=== PATIENT | male | born 1935 | race Asian ===

== ENCOUNTER 2016-08-16 06:40 | Day surgery (SDC) | payer OTHER ==
[2016-08-14 11:16] VITALS: BMI 24.0
[2016-08-16] MEDS ORDERED: HEPARIN NA (PORCINE) 5,000 UNITS/ML 1ML VIAL ONE (08:07)
[2016-08-16] MEDS ORDERED: LIDOCAINE HCL 1%, 10 MG/ML (20ML VIAL) ONE (08:07)
[2016-08-16] MEDS ORDERED: POVIDONE-IODINE OINTMENT 10% - 28.4 GM TUBE ONE (08:08)
--- NOTE | 2016-08-16 08:11 | HP ---
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 He had an upper extremity AVF creation several months ago and this is where he is getting his HD. His last session was yesterday. His family member who is at bedside states that he has been feeling fine without any fevers, cough, cp. History Source: Family Member Limitations to Obtaining History: Language Barrier - Past Medical History Cardiovascular: Yes: CAD, HTN, Hyperlipdemia. No: Deep Vein Thrombosis Pulmonary: No: Asthma, Bronchitis, O2 Dependent Gastrointestinal: No: Diverticulitis, Gastritis Renal/: Yes: Renal Failure, Hemodialysis, Other (makes a small amount of urine daily) Rheumatology: No: Vasculitis Endocrine: Yes: Diabetes Mellitus Additional Past Medical History: history of vertigo - Past Surgical History Additional Past Surgical History: Left upper extremity AVF several months ago Left fore arm fistula several years ago - Smoking History Smoking history: Never smoked Aproximately how many cigarettes per day: 0 - Alcohol/Substance Use Hx Alcohol Use: No <Asya Zuniga - Last Filed: 08/16/16 08:16> Home Medications <Asya Zuniga - Last Filed: 08/16/16 08:16> <Yuri Obrien - Last Filed: 08/16/16 09:31> - Allergies Allergies/Adverse Reactions: Allergies Allergy/AdvReac Type Severity Reaction Status Date / Time No Known Drug Allergies Allergy Verified 08/16/16 07:45 - Home Medications Home Medications: Ambulatory Orders Hydralazine HCl [Apresoline] 50 mg PO TID 10/05/11 Isosorbide Mononitrate [Imdur -] 30 mg PO DAILY 10/05/11 Glipizide [Glipizide ER] 2.5 mg PO BID 10/12/14 Meclizine HCl [Antivert -] 25 mg PO TID PRN #14 tablet 01/25/15 Review of Systems - Review of Systems Constitutional: denies: Chills, Fever Neck: denies: Decreased ROM, Pain on Movement Cardiovascular: denies: Chest Pain, Edema, Palpitations Respiratory: denies: Cough, SOB Gastrointestinal: denies: Abdominal Pain, Constipation Genitourinary: denies: Burning, Dysuria Musculoskeletal: denies: Back Pain, Extremity Pain Integumentary: denies: Blister, Bruising Neurological: reports: Dizziness (occasional dizziness after HD session.). denies: Headache Hematology/Lymphatic: denies: Easily Bruised, Excessive Bleeding <Asya Zuniga - Last Filed: 08/16/16 08:16> Physical Examination Vital Signs: Vital Signs Temperature 98.0 F 08/16/16 07:39 Pulse Rate 91 H 08/16/16 07:39 Respiratory Rate 20 08/16/16 07:39 Blood Pressure 129/69 08/16/16 07:39 O2 Sat by Pulse Oximetry (%) 98 08/16/16 07:41 Constitutional: Yes: No Distress, Calm HENT: Yes: WNL, Atraumatic, Normocephalic Neck: Yes: WNL, Supple, Trachea Midline Cardiovascular: Yes: WNL, Regular Rate and Rhythm Respiratory: Yes: WNL, Regular, CTA Bilaterally Gastrointestinal: Yes: WNL, Normal Bowel Sounds, Soft, Hernia (umbilical hernia , non-tender, non-reducible). No: Tenderness Extremities: No: Amputation, Calf Tenderness, Deformity Edema: No Peripheral Pulses WNL: Yes Peripheral Pulses: Left Radial: 2+, Right Radial: 2+, Left Doralis Pedis: 2+, Right Dorsalis Pedis: 2+, Left Femoral: 2+, Right Femoral: 2+ Wound/Incision: Yes: Clean/Dry, Well Approximated Neurological: Yes: WNL, Alert, Oriented ...Motor Strength: WNL, LUE, LLE, RUE, RLE Psychiatric: Yes: WNL, Alert, Oriented Labs: CBC, BMP 08/16/16 06:49 <Asya Zuniga - Last Filed: 08/16/16 08:16> Vital Signs: Vital Signs Temperature 98.0 F 08/16/16 07:39 Pulse Rate 91 H 08/16/16 07:39 Respiratory Rate 20 08/16/16 07:39 Blood Pressure 129/69 08/16/16 07:39 O2 Sat by Pulse Oximetry (%) 98 08/16/16 07:41 Labs: CBC, BMP 08/16/16 06:49 <Yuri Obrien - Last Filed: 08/16/16 09:31> Imaging - Results EKG: Image Reviewed (NSR-rate 54 with first degree AV block) <Metzen,Asya - Last Filed: 08/16/16 08:16> Assessment/Plan A/P: 81 yo male for 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 Functioning access in upper arm. Patient has pain at aneurysm sites. Plan excision of aneurysm. <Yuri Obrien - Last Filed: 08/16/16 09:31>
[2016-08-16] MEDS ORDERED: LIDOCAINE HCL 1%, 10 MG/ML (20ML VIAL) IJ ONE (08:36)
[2016-08-16] MEDS ORDERED: POVIDONE-IODINE OINTMENT 10% - 28.4 GM TUBE TP ONE (09:16)
[2016-08-16] MEDS ORDERED: ONDANSETRON 4 MG/2 ML VIAL IVPUSH PRN (09:31)
[2016-08-16] MEDS ORDERED: ACETAMINOPHEN 325 MG TABLET (FP) PO PRN ×2 (09:31→09:44)
--- NOTE | 2016-08-16 09:43 | OP ---
Operative Note - Note: Operative Date: 08/16/16 Pre-Operative Diagnosis: Thrombosed venous aneurysm left arm Operation: Excsion of thrombosed venous aneurysm left arm Findings: Old fistula aneurysm left arm. Post-Operative Diagnosis: Same as Pre-op Surgeon: Yuri Obrien Anesthesiologist/PERFORMANCE TEST ARCHITECT: Kaushik Yeager Anesthesia: Fractional Operative Report Dictated: Yes
[2016-08-16] MEDS ORDERED: oxyCODONE HCL 5 MG TABLET PO PRN (09:44)
[2016-08-16] MEDS ORDERED: DEXTROSE 5%-0.45% SALINE 1,000 ML IV SCH (09:45)
[2016-08-16 12:56] VITALS: BP 130/71; PULSE 95; TEMP 97.9
--- NOTE | 2016-08-16 22:14 | OP ---
DATE OF OPERATION: 08/16/2016 SURGEON: Yuri Marquis MD PROCEDURE: Excision of venous aneurysms of left arm. PREOPERATIVE DIAGNOSIS: Thrombosed venous aneurysms, left arm. POSTOPERATIVE DIAGNOSIS: Thrombosed venous aneurysms, left arm. ANESTHESIA: Fractional. ANESTHESIOLOGIST: Kaushik Yeager MD OPERATIVE FINDINGS: The old AV fistula of the left forearm had multiple enlarged venous aneurysms, which are now thrombosed. OPERATIVE PROCEDURE: Following routine patient identification, with site and side verification, intravenous sedation was established. The left arm was prepped with ChloraPrep. Time-out was performed. Then 1% Xylocaine was infiltrated over and around the venous aneurysms of the left forearm. An elliptical incision was made around the area, carried down through subcutaneous tissues using cautery for hemostasis. The thrombosed veins were then from the surrounding skin with sharp dissection and cautery. The inflow and outflow veins were clamped, divided and ligated with 2-0 Vicryl ties. The remaining attachments to the aneurysms was severed and the specimens were removed. The wound was irrigated and closed with interrupted suture of 3-0 Vicryl in subcutaneous tissues and skin dimitri. A sterile dressing consisting of dry gauze, Kerlix, and Jerel wrap was applied and the patient was taken to the recovery room in stable condition. YURI MARQUIS M.D. [id number]
== END 2016-08-16 12:40 | disposition home or self-care (01) ==
LOC: JASU-SURG 06:40
PROVIDERS: ATTEND Surgery
PROC: 05BY0ZZ Excision of Upper Vein, Open Approach (ICD-10-PCS; principal; 2016-08-16 08:00)
DX: T82.868A Thrombosis due to vascular prosthetic devices, implants and grafts, initial encounter (principal); I12.0 Hypertensive chronic kidney disease with stage 5 chronic kidney disease or end stage renal disease; E11.22 Type 2 diabetes mellitus with diabetic chronic kidney disease; N18.6 End stage renal disease
CPT/HCPCS: 36415; 84132; 88304-TC; 94760; J1644

== ENCOUNTER 2016-08-31 02:30 | Inpatient (IN) | payer OTHER ==
--- NOTE | 2016-08-31 02:42 | PDOC ---
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 As per son, at bedside, patient was last dialyzed yesterday with no complications. Son reports patient was in his usual state of health at 8pm last night. When patient awoke at around 12am son noted the patient was nonverbal with left-sided weakness. States that the patient is normally alert, oriented, and active at baseline. As per neighbor, who is also at bedside, states he is a physician and was told by the son to come over and assess the patient. After evaluating the patient he informed the son to contact the EMS immediately. Allergies: NKDA Social History: No alcohol, tobacco, or drug use reported. Past Surgical History: L AV fistula, s/p excision of thrombosed venous aneurysm left arm (53) PCP: Dr. Bennie Corrigan Nephro: Dr. Cortney Link <Cortney Tong - Last Filed: 08/31/16 04:23> - General History Source: Family <Umesh Cruz - Last Filed: 09/04/16 19:39> - General Chief Complaint: Altered Mental Status Stated Complaint: ALTERED MENTAL STATUS Time Seen by Provider: 08/31/16 02:41 Past History <Cortney Tong - Last Filed: 08/31/16 04:23> - Past Medical History Anemia: No Asthma: No Cancer: No Cardiac Disorders: No CVA: No COPD: No Dementia: No Diabetes: Yes Dialysis: Yes (mon, wed, fri) GI Disorders: No Disorders: No HTN: Yes Hypercholesterolemia: Yes Liver Disease: No Suicide Attempt (Hx): No Seizures: No Thyroid Disease: No - Surgical History Abdominal Surgery: No Appendectomy: No Cardiac Surgery: No Cholecystectomy: No Lung Surgery: No Neurologic Surgery: No Orthopedic Surgery: No - Immunization History Immunization Up to Date: No - Psycho/Social/Smoking Cessation Hx Anxiety: No Suicidal Ideation: No Smoking Status: No Smoking History: Never smoked Number of Cigarettes Smoked Daily: 0 Hx Alcohol Use: No Drug/Substance Use Hx: No Substance Use Type: None Hx Substance Use Treatment: No <MishaalbertUmesh - Last Filed: 09/04/16 19:39> - Past Medical History Allergies/Adverse Reactions: Allergies Allergy/AdvReac Type Severity Reaction Status Date / Time No Known Drug Allergies Allergy Verified 08/31/16 02:45 Home Medications: Ambulatory Orders Hydralazine HCl [Apresoline] 50 mg PO TID 10/05/11 Isosorbide Mononitrate [Imdur -] 30 mg PO DAILY 10/05/11 Glipizide [Glipizide ER] 2.5 mg PO BID 10/12/14 Meclizine HCl [Antivert -] 25 mg PO TID PRN #14 tablet 01/25/15 Labetalol HCl [Normodyne -] 0 mg PO ASDIR 08/31/16 Review of Systems - Review of Systems Able to Perform ROS?: No Comments:: 08/31/16 03:03 Unable to obtain secondary to patients clinical condition <RanCortney - Last Filed: 08/31/16 04:23> *Physical Exam - Vital Signs Last Vital Signs Temp Pulse Resp BP Pulse Ox 73 18 127/80 98 08/31/16 02:44 08/31/16 02:44 08/31/16 02:44 08/31/16 02:44 - Physical Exam Comments: 08/31/16 03:03 GENERAL: Well developed, well nourished. Awake and alert. Nonverbal. No acute distress. HEENT: Normocephalic, atraumatic. PERRLA, EOMI. No conjunctival pallor. Sclera are non- icteric. Moist mucous membranes. Oropharynx is clear. NECK: Supple. Full ROM. No JVD. Carotid pulses 2+ and symmetric, without bruits. No thyromegaly. No lymphadenopathy. CARDIOVASCULAR: Regular rate and rhythm. No murmurs, rubs, or gallops. Distal pulses are 2+ and symmetric. PULMONARY: No evidence of respiratory distress. Lungs clear to auscultation bilaterally. No wheezing, rales or rhonchi. ABDOMINAL: Soft. Non-distended. No rebound or guarding. No organomegaly. Normoactive bowel sounds. MUSCULOSKELETAL Normal range of motion at all joints. No bony deformities. EXTREMITIES: No cyanosis. No clubbing. L AV fistula +bruits and +thrills. R upper extremity picc line. No edema. SKIN: Warm and dry. Normal capillary refill. No rashes. No jaundice. NEUROLOGICAL: Alert and awake. Nonverbal. Not following simple commands as son was translating. 0/5 motor strength of both left upper extremity and right upper extremity. Neglect of entire left side. No facial droop. <Cortney Tong - Last Filed: 08/31/16 04:23> NIH Stroke Scale - Last Known Well Date/Time & Onset Date Last Known Well: 08/30/16 Time Last Known Well: 20:00 - Initial Evaluation Level of consciousness: Alert Ask patient the month and their age: Both incorrect (as translated by son) Ask patient to open & close eyes; make fist and let go: Both incorrect (as translated by son) Best gaze (horizontal eye movement): Normal Visual field testing: No visual field loss Facial paresis (Show teeth/raise eyebrows/close eyes tight): Normal symmetrical movement Motor Function: Left Arm: No movement Motor Function: Right Arm: Normal (extends arm 90 (or 45) degrees for 10 seconds without drift Motor Function: Left Leg: No movement Motor Function: Right Leg: Normal (extends leg 30 degrees for 5 seconds without drift) Limb Ataxia: Present in one limb Sensory(Use pinprick test arms,legs,trunk,face/side to side): Severe to total sensory loss (left upper and lower extremtiy) Best language (Describe picture, name items, read sentences): Severe aphasia Dysarthria (read several words): Near unintelligible or unable to speak Extinction and Inattention: Profound zane-inattention or extinction to more than one modality (left upper and lower extremity) - Total Score NIH Stroke Scale Score: 21 <Umesh Cruz - Last Filed: 09/04/16 19:39> tPA Exclusion Checklist 0-3hr - Time Elapsed Date last known well: 08/30/16 Time last known well: 20:00 Elaspsed time: 4 Day(s) and 23 Hour(s) and 39 Minutes - Exclusion Criteria 0-3hr SBP greater than 185 or DBP greater than 110mmHg despite tx: No Recent IC/spinal surgery,head trauma or stroke w/in last 3mo: No Hx of previous IC hemorrhage, IC neoplasm, AVM or aneurysm: No Active internal bleeding: No Blding diathesis(low plt ct, inc PTT,INR>1.7 or use of NOAC): No Symptoms suggest subarachnoid hemorrhage: No CT demonstrates multilobar infarct(>1/3 cerebral hemiphere): No Arterial puncture at noncompressible site in previous 7 days: No Blood glucose concentration less than 50mg/dL (2.7mmol/L): No - Relative Exclusion Criteria 0-3h Life expectancy <1yr/severe co-morbid illness/HSE COORDINATOR on admit: No : No Patient/family refused: No Rapid improvement: No Stroke severity too mild: No Recent acute DC (w/in previous 3 months): No Seizure at onset with postictal residual neuro impairments: No Major surgery or serious trauma w/in previous 14 days: No Recent GI or hemorrhage (w/in previous 21 days): No - Ineligibility reason(s) Reasons No tPA given: Outside of window - delayed arrival <Umesh Cruz - Last Filed: 09/04/16 19:39> Heart Score/ECG Review - ECG Impressions Comment:: 08/31/16 03:26 Atrial fibrillation @68bpm L axis deviation Incomplete RBBB Anteroseptal infarct, age undetermined Abnormal ECG <Cortney Tong - Last Filed: 08/31/16 04:23> Critical Care Time/MDM Note - Medical Decision Making Note: 08/31/16 03:[address] Guy (via [phone]) at 3:35 and patient's case was discussed 08/31/16 04:[address] Bennie Corrigan (via [phone]) at 4:23 and patient's case was discussed. 08/31/16 03:04 Documentation prepared by Cortney Tong, acting as medical billing and coding specialist for Umesh Cruz MD/DO. <Cortney Tong - Last Filed: 08/31/16 04:23> - Medical Decision Making Note: 08/31/16 03:53 Dr. Cruz: The scribe's documentation has been prepared under my direction and personally reviewed by me in its entirery. I confirm that the note above accurately reflects all work, treatment, procedures, and medical decision making performed by me. Pt with CVA. Last known well at 8pm last night. Pt with complete Left upper and lower hemiplegia and neglect of left side. Spoke to Neurology. Pt is not a candidate due to length of time out of [place] 09/04/16 19:39 <Umesh Cruz - Last Filed: 09/04/16 19:39> Discharge Disposition <KimberlyorlyCortney - Last Filed: 08/31/16 04:23> - Discharge Dispostion Admit: Yes <Umesh Cruz - Last Filed: 09/04/16 19:39> - Diagnosis ESRD (end stage renal disease) on dialysis CVA (cerebral vascular accident) Qualifiers: CVA mechanism: embolism Precerebral and cerebral artery: middle cerebral artery Laterality of affected vessel: right Qualified Code(s): I63.411 - Cerebral infarction due to embolism of right middle cerebral artery - Discharge Dispostion Condition at time of disposition: Stable ED Treatment Course - LABORATORY CBC & Chemistry Diagram: 08/31/16 02:40 08/31/16 02:40 - ADDITIONAL ORDERS Additional order review: Laboratory Results 08/31/16 08/31/16 02:40 02:40 INR 1.34 H Sodium 138 Potassium 4.9 Chloride 97 L Carbon Dioxide 27 Anion Gap 14 BUN 41 H Creatinine 5.7 H Creat Clearance w eGFR 9.67 Random Glucose 272 H D Calcium 8.7 Total Bilirubin 0.4 D AST 21 D ALT 37 D Total Protein 6.7 Albumin 3.0 L 08/31/16 02:40 RBC 3.47 L MCV 93.6 MCHC 32.8 RDW 14.8 MPV 9.3 Neutrophils % 66.1 Lymphocytes % 13.7 Monocytes % 12.8 H Eosinophils % 6.2 H Basophils % 1.2 - RADIOLOGY Radiograph Interpretation: 08/31/16 03:14 EXAM: CT HEAD WITHOUT CONTRAST Reviewed by Imaging television installer helper: Subtle loss of galarza-white differentiaion right frontal lobe on images 16 and 17, question acute ischemic infarct versus artifact. Advise further evaluation with MRI. No definite acute hemorrhage or mass. Exam limited by motion artifact in high frontal and parietal lobes. Age- related involutional changes. Slightly more prominent chronic small vessel ischemic changes compared to 02/19/13. Minimal mucoperiosteal thickening paranasal sinuses. Small left mastoid effusion, improved since prior exam. <Cortney Tong - Last Filed: 08/31/16 04:23> - LABORATORY CBC & Chemistry Diagram: 09/04/16 07:00 09/04/16 07:00 <Umesh Cruz - Last Filed: 09/04/16 19:39>
[2016-08-31 02:46] VITALS: BMI 29.0
[2016-08-31 02:48] LABS: BASOPHIL 1.2 % (0-2.0); EOSINOPHIL 6.2 % (0-4.5); MCH 30.7 pg (25.7-33.7); MCHC 32.8 g/dl (32.0-35.9); MEAN CELL VOLUME 93.6 fl (80-96); MEAN PLT VOLUME 9.3 fl (7.5-11.1); NEUTROPHILS 66.1 % (42.8-82.8); PLATELET COUNT 190 K/MM3 (134-434); RDW 14.8 % (11.9-15.9)
[2016-08-31 03:02] LABS: INR 1.34 (0.82-1.09); PROTHROMBIN TIME (PATIENT) 14.8 SEC (9.98-11.88)
[2016-08-31 03:11] LABS: BILIRUBIN,TOTAL 0.4 mg/dL (0.2-1.0); CALCIUM 8.7 mg/dL (8.5-10.1); COCKROFT - GAULT 12.13; CREATININE 5.7 mg/dL (0.7-1.3); TOT PROT 6.7 g/dl (6.4-8.2)
[2016-08-31 03:14] LABS: TROPONIN I 0.08 ng/ml (0.00-0.05)
[2016-08-31] MEDS ORDERED: ASPIRIN 81 MG CHEWABLE TABLETS PO ONE (06:12)
[2016-08-31] MEDS ORDERED: ASPIRIN 300 MG SUPP.RECT RC ONE (06:27)
[2016-08-31] MEDS ORDERED: ASPIRIN 300 MG SUPP.RECT PR ONE (06:43)
--- NOTE | 2016-08-31 11:32 | EKG ---
Test Reason : Blood Pressure : / mmHG Vent. Rate : 068 BPM Atrial Rate : 054 BPM P-R Int : 000 ms QRS Dur : 114 ms QT Int : 432 ms P-R-T Axes : 000 -39 058 degrees QTc Int : 459 ms ATRIAL FIBRILLATION LEFT AXIS DEVIATION INCOMPLETE RIGHT BUNDLE BRANCH BLOCK ANTEROSEPTAL INFARCT (CITED ON OR BEFORE 31-AUG-2016) ABNORMAL ECG WHEN COMPARED WITH ECG OF 29-JUL-2016 09:27, ATRIAL FIBRILLATION HAS REPLACED SINUS RHYTHM Confirmed by JOHN CULLEN MD ([id number]) on 08/31/2016 11:32:01 AM Referred By: Confirmed By:JOHN CULLEN MD
--- NOTE | 2016-08-31 13:03 | CONSULT ---
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 As per son, at bedside, patient was last dialyzed yesterday with no complications. Son reports patient was in his usual state of health at 8pm last night. When patient awoke at around 12am son noted the patient was nonverbal with left-sided weakness. States that the patient is normally alert, oriented, and active at baseline. As per neighbor, who is also at bedside, states he is a physician and was told by the son to come over and assess the patient. After evaluating the patient he informed the son to contact the EMS immediately. " Pt seen bedside with family present. Pt reclining, coughing on secretions, congested. Nursing reported pt had pushed bed controls while she was in the room and he was told to stay upright. Elevated bed and suction set up. Within a few minutes during me evaluation, airway seemed less gurgly. Keeps eyes closed but opens upon command. Eyes deviating to right. Selected Entries 08/31/16 08/31/16 06:43 13:08 Temperature 98.4 F 98.1 F Laboratory Tests 08/31/16 02:40 WBC 7.0 History Source: Family Member, Medical Record Limitations to Obtaining History: Clinical Condition, Other (confused, dysarthia ) - Past Medical History Cardiovascular: Yes: CAD, HTN, Hyperlipdemia. No: Deep Vein Thrombosis Renal/: Yes: Renal Failure, Hemodialysis, Other (makes a small amount of urine daily) Endocrine: Yes: Diabetes Mellitus - Smoking History Smoking history: Never smoked Aproximately how many cigarettes per day: 0 - Alcohol/Substance Use Hx Alcohol Use: No History - Admission Reason For Visit: CVA ESRD ON DIALYSIS (STROKE) - Diagnostics X-ray: Report Reviewed CT Scan: Report Reviewed - General Mental Status: Able to Follow Commands, Confused Attention: Distractible, Moderate Impairment Ability to Follow Directions: Fair - Hearing Hearing: Impaired (awaiting hearing aids) Speech Evaluation - Communication Primary Language: UNKNOWN (malayalam) Communication: Yes: Dysarthria Oral Expression Ability: Yes: Moderate Impairment, Severe Impairment - Speech Production Dysarthria: Yes: Flaccid Able to Make Needs Known: Yes: Moderately Impaired, Severely Impaired Intelligibility: Yes: Moderately Impaired, Severely Impaired - Speech Characteristics Voice Loudness: Normal Voice Pitch: Yes: Normal Voice Phonatory-based Quality: Yes: Hoarse, Vocal Wetness Speech Pattern: Impaired Speech Clarity: < 50% Articulation: Yes: Imprecise Rate of Speech: Too Fast - Language/Auditory Comprehension Follows: Yes: 1 Stage Simple Commands - Language/Verbal Expression Able to Communicate Wants and Needs: Yes: Severely Impaired Functional Communication Status: Yes: Severely Impaired - Swallow Evaluation/Bedside Assessment Current Nutritional Intake: NPO Oral Secretions: Yes: Drooling (left side), Pooling (audible upper airway secretions) Facial Symmetry at Rest: Facial Droop Left Lingual Movement: Symmetric (weak) Laryngeal Elevation: Impaired Laryngeal Movement: Unable to Palpate Coughing/Throat Clear: Yes (secretions) Change in Voice: Yes (vocal wetness) Recommendations - Speech Evaluation, Impression/Plan Impression: Dysarthria,Dysphagia,Confused, Disoriented, left neglect,. eyes deviating to right with left hemiplegia, now with slight movement,. Weak unprotective cough,. high risk of aspiration at this time. No swallow reflex elicited, with vocal wetness and slight throat clearing. - Dysphagia Impressions/Plan Swallowing Skills: Impaired Dysphagia Impressions: Severe Impairment, Ongoing Evaluation, Suspect Aspiration *Silent aspiration: cannot be R/O at bedside Dysphagia Treatment Plan: Other (Family educated on Dysarthria,Dysphagia, confusion and provided rec) Recommendations: Neuro Consult, Other (Elevate HOB at all times, mouth care, suction PRN) - Recommendations Diet Consistency: NPO, Other (NPO including medication To follow for improvement vs indication for TF.) Liquids: NPO
--- NOTE | 2016-08-31 13:23 | CON.CARD ---
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 As per son, patient was last dialyzed yesterday without sequelae. Son reports patient was in his usual state of health at 8pm last night. When patient awoke at around 12am son noted the patient was nonverbal with left-sided weakness. States that the patient is normally alert, oriented, and active at baseline. EKG shows newly diagnosed afib , not candidate for thrombolysis as patient was outside therapeutic window. Allergies: NKDA Social History: No alcohol, tobacco, or drug use reported. 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 Bennie Corrigan Nephro: Dr. Cortney Link - History Source History Provided By: Family Member Limitations to Obtaining History: Clinical Condition - Past Medical History Cardio/Vascular: Yes: CAD, CHF, HTN, Hyperlipdemia. No: Deep Vein Thrombosis Renal/: Yes: Renal Failure, Hemodialysis, Other (makes a small amount of urine daily) Endocrine: Yes: Diabetes Mellitus - Alcohol/Substance Use Hx Alcohol Use: No - Smoking History Smoking history: Never smoked Aproximately how many cigarettes per day: 0 Home Medications - Allergies Allergies/Adverse Reactions: Allergies Allergy/AdvReac Type Severity Reaction Status Date / Time No Known Drug Allergies Allergy Verified 08/31/16 02:45 - Home Medications Home Medications: Ambulatory Orders Hydralazine HCl [Apresoline] 50 mg PO TID 10/05/11 Isosorbide Mononitrate [Imdur -] 30 mg PO DAILY 10/05/11 Glipizide [Glipizide ER] 2.5 mg PO BID 10/12/14 Meclizine HCl [Antivert -] 25 mg PO TID PRN #14 tablet 01/25/15 Labetalol HCl [Normodyne -] 0 mg PO ASDIR 08/31/16 Review of Systems Unable to obtain ROS, reason: Nonverbal Vital Signs: Vital Signs Temperature 98.1 F 08/31/16 13:08 Pulse Rate 85 08/31/16 13:08 Respiratory Rate 20 08/31/16 13:08 Blood Pressure 151/88 08/31/16 13:08 O2 Sat by Pulse Oximetry (%) 97 08/31/16 10:24 Constitutional: Yes: No Distress, Calm, Thin Neck: Yes: Supple Respiratory: Yes: Regular, Diminished, On Nasal O2 Gastrointestinal: Yes: Normal Bowel Sounds, Soft Cardiovascular: Yes: Pulse Irregular JVD: No Carotid Bruit: No Heart Sounds: Yes: S1, S2 Murmur: Yes: Systolic Murmur, Grade 2 Edema: No Neurological: Yes: Confusion, Dysarthria, Weakness ...Motor Strength: LUE, LLE - Other Data Labs, Other Data: INR, PTT INR 1.34 (0.82-1.09) H 08/31/16 02:40 Afib @ 68 Ejection Fraction %: LVEF > or = 40 % Imaging - Results Chest X-ray: Report Reviewed (NAD) Cat Scan: Report Reviewed (HCT: Negative for bleed, stroke) Problem List - Problems (1) CVA (cerebral vascular accident) Code(s): I63.9 - CEREBRAL INFARCTION, UNSPECIFIED Qualifiers: CVA mechanism: embolism Precerebral and cerebral artery: middle cerebral artery Laterality of affected vessel: right Qualified Code(s ): I63.411 - Cerebral infarction due to embolism of right middle cerebral artery (2) ESRD (end stage renal disease) on dialysis Code(s): N18.6 - END STAGE RENAL DISEASE Z99.2 - DEPENDENCE ON RENAL DIALYSIS (3) Systolic dysfunction without heart failure Code(s): I51.9 - HEART DISEASE, UNSPECIFIED (4) Hyperlipidemia associated with type 2 diabetes mellitus Code(s): E11.69 - TYPE 2 DIABETES MELLITUS WITH OTHER SPECIFIED COMPLICATION E78.5 - HYPERLIPIDEMIA, UNSPECIFIED (5) Hypertensive cardiomyopathy Code(s): I11.9 - HYPERTENSIVE HEART DISEASE WITHOUT HEART FAILURE I43 - CARDIOMYOPATHY IN DISEASES CLASSIFIED ELSEWHERE Qualifiers: Heart failure presence: without heart failure Qualified Code(s): I11.9 - Hypertensive heart disease without heart failure; I43 - Cardiomyopathy in diseases classified elsewhere (6) Atrial fibrillation Code(s): I48.91 - UNSPECIFIED ATRIAL FIBRILLATION Qualifiers: Atrial fibrillation type: persistent Qualified Code(s): I48.1 - Persistent atrial fibrillation Assessment/Plan 1. Acute right MCA stroke in context of 2. Newly diagnosed atrial fibrillation 3. LV systolic dysfunction euvolemic 4. HTN/HCVD 5. Hyperlipidemia 6. Type 2 DM 7. ESRD->HD P:1. F/u echo to assess ventricular and valve fxn, check TSH, lipid panel, Ha1c 2. Will require coumadin per INR, not ideal NOAC candidate due to ESRD, will d/ w neurology regarding timing to minimize risk of hemorrhagic conversion 3. F/u brain MRI, carotid dopplers, PT, S&S eval 4. Start carvedilol and losartan as hemodynamics tolerate 5. HD per renal 6. Thank you for consultative opportunity
--- NOTE | 2016-08-31 14:34 | HP ---
CHIEF COMPLAINT: family reported patient became non verbal with left side weakness at apx 12a.m PCP: Dr. 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 (5/) Social History: Smoking: denies Alcohol: denies Drugs: denies Family History: Allergies: denies No Known Drug Allergies Allergy (Verified 08/31/16 02:45) HOME MEDICATIONS: Home Medications Medication Instructions Recorded Hydralazine HCl [Apresoline] 50 mg PO TID 10/05/11 Isosorbide Mononitrate [Imdur -] 30 mg PO DAILY 10/05/11 Glipizide [Glipizide ER] 2.5 mg PO BID 10/12/14 Meclizine HCl [Antivert -] 25 mg PO TID PRN #14 tablet 01/25/15 Labetalol HCl [Normodyne -] 0 mg PO ASDIR 08/31/16 REVIEW OF SYSTEMS CONSTITUTIONAL: Absent: fever, chills, diaphoresis, generalized weakness, malaise, loss of appetite, weight change HEENT: Absent: rhinorrhea, nasal congestion, throat pain, throat swelling, difficulty swallowing, mouth swelling, ear pain, eye pain, visual changes CARDIOVASCULAR: Absent: chest pain, syncope, palpitations, +atrial fib, lightheadedness, peripheral edema RESPIRATORY: Absent: cough, dyspnea with exertion, orthopnea, wheezing, stridor, hemoptysis GASTROINTESTINAL: Absent: abdominal pain, abdominal distension, nausea, vomiting, diarrhea, constipation, melena, hematochezia GENITOURINARY: Absent: dysuria, frequency, urgency, hesitancy, hematuria, flank pain, genital pain MUSCULOSKELETAL: Absent: myalgia, arthralgia, joint swelling, back pain, neck pain SKIN: Absent: rash, itching, pallor HEMATOLOGIC/IMMUNOLOGIC: Absent: easy bleeding, easy bruising, lymphadenopathy, frequent infections ENDOCRINE: Absent: unexplained weight gain, unexplained weight loss, heat intolerance, cold intolerance NEUROLOGIC: Absent: headache, focal weakness or paresthesias, dizziness, unsteady gait, seizure, mental status changes, bladder or bowel incontinence PSYCHIATRIC: Absent: anxiety, depression, suicidal or homicidal ideation, hallucinations. PHYSICAL EXAMINATION Vital Signs - 24 hr 08/31/16 08/31/16 08/31/16 03:58 06:43 07:53 Temperature 98.4 F Pulse Rate Pulse Rate [ 75 79 Apical] Respiratory 17 18 Rate Blood Pressure Blood Pressure 114/82 141/68 [Right Arm] O2 Sat by Pulse 100 98 Oximetry (%) 08/31/16 08/31/16 10:24 13:08 Temperature 98.1 F Pulse Rate 85 Pulse Rate [ 81 Apical] Respiratory 19 20 Rate Blood Pressure 151/88 Blood Pressure 123/67 [Right Arm] O2 Sat by Pulse 97 Oximetry (%) GENERAL: lethargic, follows simple commands, left facial droop HEAD: +left facial droop, left neglect, can follow simple commands EYES: Pupils equal, No lid lag. EARS, NOSE, THROAT: Ears normal, nares patent, oropharynx clear without exudates. Moist mucous membranes. NECK: Normal range of motion, supple without lymphadenopathy, JVD, or masses. LUNGS: Breath sounds equal, diminished bilaterally. HEART: atrial fibrillation on cardiac care nurse ABDOMEN: Soft, nontender, not distended, normoactive bowel sounds, no guarding, no rebound, no masses. No hepatomegaly or splenomegaly. MUSCULOSKELETAL: Normal range of motion at all joints. No bony deformities or tenderness. No CVA tenderness. UPPER EXTREMITIES: + bruit/thrill of left upper arm LOWER EXTREMITIES: 2+ pulses, warm, well-perfused. No calf tenderness. No peripheral edema. NEUROLOGICAL: lethargic, non verbal secondary to lethargy SKIN: + bruit and thrill of left upper arm, left lower forearm with +sutures Laboratory Results - last 24 hr 08/31/16 10:30 POC Glucometer [id number] ASSESSMENT/PLAN: Patient is a 81 year old male with a significant past medical history of ESRD with dialysis scheduled on MWF. 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 His other medical history includes diabetes, hypertension, hyperlipidemia. He presented to the ED from home for AMS and left-sided weakness. I spoke to son at the bedside and states that his father is normally able to ambulate and care for himself . His last dialysis was yesterday without incident. Family reports that patient was in his usual state of health when he noted that his father became non verbal with left sided weakness. Family contacted EMS and patient was brought into the ER and a code Will was called. A swallow evaluation was performed at the bedside but patient was too lethargic to participate and required repeated verbal cues to swallow apple sauce. During swallow evaluation, patients eyes deviated to the right with left hemiplegia. He coughed when asked but cough was noted to be very weak. He is too high risk for aspiration at this time. Will keep him NPO. Patient is a dialysis patients, makes very little urine. Therefore will not start patient on IV fluids. The plan is to keep him NPO and try the swallow function test tomorrow. Imaging: Head CT 08/31/2016 - No evidence of acute ICH, edema or midline shift. EKG of 07/29/2016, atrial fib has replaced SR Will start on Lopressor IV while NPO for rate control Neurology: CVA/TIA - left sided facial droop. Assessment/Plan: Given 325 of ASA in ED Not candidate for thrombolysis as patient was outside therapeutic window. On cardiac care nurse: atrial fib 60s Will defer to Neuro for anticoagulants Will start on a Statin once able to swallow Carotid doppler ordered Brain MRI ordered Neurology consulted Neuro checks q 4 Will check lipid panel Will keep NPO as he failed swallow evaluation Metabolic Encephalopathy - acute Assessment/Plan: Likely secondary to acute CVA Monitor mental status Neuro consulted Head CT 08/31/2016 - No evidence of acute ICH, edema or midline shift. Brain MRI ordered Endocrine: Diabetes Mellitus Assessment/Plan: On Glipizide @ home, will put on Novolog sliding scale Monitor capillary glucose Will order HgbA1c Renal: End Stage Renal Disease Assessment/Plan: Dialysis MWF, renal following Monitor Bun/Creat. Dialysis patient, will not start on IVF Cardiology Atrial Fibrillation -new diagnosis/new onset Afib Assessment/Plan: EKG 08/31/2016 show atrial fib @ 68, when compared to EKG of 07/29/2016, atrial fib has replaced SR Will start on Lopressor IV while NPO for rate control Will await Neurology input on shelter anticoags F.E.N. Fluids: no IVF, on dialysis, anuria Electrolytes: monitor BMP Nutrition: NPO: failed bedside swallow evaluation, repeat test tomorrow Prophylaxis: DVT: Heparin BID GI: Protonix PO when not NPO Disposition: Requires inpatient hospitalization for his acute/emergent condition. Full Code. Visit type - Emergency Visit Emergency Visit: Yes ED Registration Date: 08/31/16 Care time: The patient presented to the Emergency Department on the above date and was hospitalized for further evaluation of their emergent condition. - New Patient This patient is new to me today: Yes Date on this admission: 08/31/16 - Critical Care Critical Care patient: No
--- NOTE | 2016-08-31 15:40 | CONSULT ---
Consult - text type - Consultation Consultation Note: Renal Consult for ESRD on HD This is a 81 year old Gentleman with PMhx of ESRD on HD (MWF), Hypertension, CHF , DM2 who presented with AMS, unilateral weakness and found to have an acute CVA. Pt was brought in by has family at 2am and was last seen at his baseline earlier that evening. s/p uneventful dialysis treatment on Sunday. In the ED pt is non-verbal. BP is stable. No complaints of CP, sob, abd pain, N/V/D. Noted to be in new onset afib. PMhx: As above Allergies: NKDA Family Hx: NC Social Hx: No T/A/D ROS: As per HPI Home Meds: Home Medications Medication Instructions Recorded Hydralazine HCl [Apresoline] 50 mg PO TID 10/05/11 Isosorbide Mononitrate [Imdur -] 30 mg PO DAILY 10/05/11 Glipizide [Glipizide ER] 2.5 mg PO BID 10/12/14 Meclizine HCl [Antivert -] 25 mg PO TID PRN #14 tablet 01/25/15 Labetalol HCl [Normodyne -] 0 mg PO ASDIR 08/31/16 Vital Signs Temperature 98.1 F 08/31/16 15:17 Pulse Rate 85 08/31/16 15:17 Respiratory Rate 16 08/31/16 15:17 Blood Pressure 151/88 08/31/16 15:17 O2 Sat by Pulse Oximetry (%) 97 08/31/16 15:27 Gen: NAD, lethargic HEENT: NC/AT, MMM, No JVD CVS: RRR, No M/R Lungs: CTA, no rales Abd: Soft, Obese, NT/ND Ext: no edema, clubbing or cyanosis Neuro pt not following commands, lethargic CBC, BMP 08/31/16 02:40 08/31/16 02:40 Current Medications Insulin Aspart (Novolog Vial Sliding Scale -) 1 vial SQ ACHS TULIO PRN Reason: Protocol A/P 81 year old Gentleman with PMhx of ESRD on HD (MWF), Hypertension, CHF, DM2 who presented with AMS, unilateral weakness and found to have an acute CVA. #Acute CVA in setting of new onset Afib Neurology follow up MRI, Carotid Doppler ? TONY A/c as per cardiology #New onset Afib Rate control and afib as per cardiology ? TONY #ESRD on HD no acute indication for dialysis today will arrange for maintenance dialysis tomorrow dose all meds for intermittent HD #CKD related Anemia will continue KARIE as needed to maintain hgb > 8 #DM continue insulin as per primary #Hypertension allow permissive hypertension as per Neurology Thank you Will follow Pola Darnell DO
[2016-08-31] MEDS: INSULIN SLIDING SCALE (NOVOLOG) 1 VIAL SQ SCH ×2 (16:07→23:43)
[2016-08-31] MEDS ORDERED: glipiZIDE-XL 2.5 MG TAB.ER.24 PO SCH (16:30)
[2016-08-31] MEDS: METOPROLOL TARTRATE 5 MG/5 ML VIAL IVPB SCH ×2 (17:41→23:42)
[2016-08-31] MEDS: HEPARIN NA (PORCINE) 5,000 UNITS/ML 1ML VIAL SQ SCH (23:42)
[2016-09-01] MEDS: METOPROLOL TARTRATE 5 MG/5 ML VIAL IVPB SCH ×6 (05:04→22:05)
[2016-09-01] MEDS: INSULIN SLIDING SCALE (NOVOLOG) 1 VIAL SQ SCH ×4 (06:27→22:00)
[2016-09-01 07:04] LABS: BASOPHIL 0.5 % (0-2.0); EOSINOPHIL 0.8 % (0-4.5); MCH 31.4 pg (25.7-33.7); MCHC 33.5 g/dl (32.0-35.9); MEAN CELL VOLUME 93.7 fl (80-96); MEAN PLT VOLUME 9.5 fl (7.5-11.1); NEUTROPHILS 80.6 % (42.8-82.8); PLATELET COUNT 214 K/MM3 (134-434); RDW 14.9 % (11.9-15.9); WHITE BLOOD COUNT 10.8 K/mm3 (4.0-10.0)
[2016-09-01 07:46] LABS: ALBUMIN 3.4 g/dl (3.4-5.0); CALCIUM 9.2 mg/dL (8.5-10.1)
[2016-09-01 08:00] LABS: BILIRUBIN,TOTAL 0.7 mg/dL (0.2-1.0); COCKROFT - GAULT 7.35; MAGNESIUM 2.3 mg/dL (1.8-2.4); THYROID STIMULATING HORMONE 1.34 uIU/ml (0.358-3.74); TOT PROT 7.2 g/dl (6.4-8.2)
--- NOTE | 2016-09-01 09:07 | PN ---
Physical Exam: SUBJECTIVE: Patient seen and examined. Restless, getting dialysis. OBJECTIVE: Patient currently receiving dialysis @ the bedside Agitated overnight Spoke with neurologist, pt should be on ASA OK until able to tolerate PO Will repeat Head CT to reevaluate stroke If worsening, will consult neurosurgery Spoke with Dr. Guy 12:45pm regarding Head CT; and as per neurologist, pt should be transferred to ICU with neurosurgery consult. Consult placed with Dr. Van Duenas, also called in consult [phone] - awaiting call back. Consult placed for Dr. Ortiz for pending ICU transfer. Spoke with Dr. Doty who approved pt to be transferred to ICU. Vital Signs Period Temp Pulse Resp BP Sys/Avila Pulse Ox Last 24 Hr 98 F-98.8 F 81-105 16-20 123-177/61-88 97-99 GENERAL: lethargic, follows simple commands, left facial droop HEAD: +left facial droop, left neglect, lethargic - not opening his eyes when asked EYES: left neglect EARS, NOSE, THROAT: Ears normal, nares patent, oropharynx clear without exudates. Moist mucous membranes. NECK: Normal range of motion, supple without lymphadenopathy, JVD, or masses. LUNGS: Breath sounds equal, diminished bilaterally. HEART: atrial fibrillation on bibliographic services specialist ABDOMEN: Soft, nontender, not distended, normoactive bowel sounds, no guarding, no rebound, no masses. No hepatomegaly or splenomegaly. MUSCULOSKELETAL: Normal range of motion at all joints. No bony deformities or tenderness. No CVA tenderness. UPPER EXTREMITIES: + bruit/thrill of left upper arm LOWER EXTREMITIES: 2+ pulses, warm, well-perfused. No calf tenderness. No peripheral edema. NEUROLOGICAL: lethargic, non verbal secondary to lethargy - acute stroke SKIN: + bruit and thrill of left upper arm, left lower forearm with +sutures Laboratory Results - last 24 hr 08/31/16 08/31/16 08/31/16 10:30 15:33 23:40 WBC RBC Hgb Hct MCV MCHC RDW Plt Count MPV Neutrophils % Lymphocytes % Monocytes % Eosinophils % Basophils % Sodium Potassium Chloride Carbon Dioxide Anion Gap BUN Creatinine Creat Clearance w eGFR POC Glucometer [id number] 161 136 Random Glucose Hemoglobin A1c % Calcium Magnesium Total Bilirubin AST ALT Alkaline Phosphatase Total Protein Albumin Triglycerides Cholesterol Total LDL Cholesterol HDL Cholesterol TSH 09/01/16 09/01/16 09/01/16 05:35 05:35 05:35 WBC 10.8 H D RBC 3.82 L Hgb 12.0 D Hct 35.8 MCV 93.7 MCHC 33.5 RDW 14.9 Plt Count 214 MPV 9.5 Neutrophils % 80.6 D Lymphocytes % 8.0 D Monocytes % 10.1 Eosinophils % 0.8 D Basophils % 0.5 Sodium 137 Potassium 6.1 H* D Chloride 99 Carbon Dioxide 23 Anion Gap 15 BUN 68 H D Creatinine 8.0 H* D Creat Clearance w eGFR 6.64 POC Glucometer Random Glucose 179 H D Hemoglobin A1c % 8.7 H D Calcium 9.2 Magnesium 2.3 Total Bilirubin 0.7 D AST 23 ALT 33 Alkaline Phosphatase 134 H Total Protein 7.2 Albumin 3.4 Triglycerides 74 D Cholesterol 125 Total LDL Cholesterol 57 HDL Cholesterol 58 D TSH 1.34 09/01/16 06:24 WBC RBC Hgb Hct MCV MCHC RDW Plt Count MPV Neutrophils % Lymphocytes % Monocytes % Eosinophils % Basophils % Sodium Potassium Chloride Carbon Dioxide Anion Gap BUN Creatinine Creat Clearance w eGFR POC Glucometer 175 Random Glucose Hemoglobin A1c % Calcium Magnesium Total Bilirubin AST ALT Alkaline Phosphatase Total Protein Albumin Triglycerides Cholesterol Total LDL Cholesterol HDL Cholesterol TSH Active Medications Generic Name Dose Route Start Last Admin Trade Name Freq PRN Reason Stop Dose Admin Aspirin 600 mg 09/01/16 10:00 Asa Suppository - OK DAILY [facility] Heparin Sodium (Porcine) 5,000 unit 08/31/16 22:00 08/31/16 23:42 Heparin - SQ 5,000 unit BID [facility] Administration Insulin Aspart 1 vial 08/31/16 16:30 09/01/16 06:27 Novolog Vial Sliding Scale - SQ Not Given ACHS [facility] Protocol Metoprolol Tartrate 5 mg 08/31/16 18:00 09/01/16 06:28 Lopressor Injection - IVPB Not Given Q4H-IV [facility] ASSESSMENT/PLAN: Patient is a 81 year old male with a significant past medical history of ESRD with dialysis scheduled on MWF. 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 His other medical history includes diabetes, hypertension, hyperlipidemia. He presented to the ED from home for AMS and left-sided weakness. I spoke to son at the bedside and states that his father is normally able to ambulate and care for himself . His last dialysis was yesterday without incident. Family reports that patient was in his usual state of health when he noted that his father became non verbal with left sided weakness. Family contacted EMS and patient was brought into the ER and a code Suman was called. A swallow evaluation was performed at the bedside yesterday but patient was too lethargic to participate and required repeated verbal cues to swallow apple sauce. During swallow evaluation, patients eyes deviated to the right with left hemiplegia. He coughed when asked but cough was noted to be very weak. He is too high risk for aspiration at this time. Will keep him NPO, Clinimax ordered. Will ask RD to follow. Imaging: Head CT 08/31/2016 - No evidence of acute ICH, edema or midline shift. EKG of 07/29/2016, atrial fib has replaced SR Will start on Lopressor IV while NPO for rate control Head CT 09/01/2016 - interval large acute right middle cerebral artery territorial infarct involving the right basal ganglia with mass effect effacing the cortical suci as well as mild effacement of the right lateral ventricle and very minimal shift towards the left. Note is made of a hyperdense right middle cerebral artery sign suggestive of thrombosis/occlusion. Correlation with MRI/ MRA of the brain is recommended. Neurology: CVA/TIA - left sided facial droop, left neglect, left sided weakness Assessment/Plan: Given 325 of ASA in ED Not candidate for thrombolysis as patient was outside therapeutic window. On bibliographic services specialist: atrial fib 60s, ASA OK ordered as per neurology recommendations Will start on a Statin once able to swallow Carotid doppler ordered and reviewed Brain MRI ordered - awaiting Neuro surgeon consulted for thrombosis/occlusion Neuro checks q 4 Lipid panel reviewed, unable to swallow at this time Will keep NPO as he failed swallow evaluation - started on Clinimax Seizure precautions - started on IV Keppra 500mg BID Metabolic Encephalopathy - acute Assessment/Plan: Likely secondary to acute CVA Monitor mental status Neuro consulted., neurosurgery consulted, message left for Dr. Duenas. Head CT 08/31/2016 - No evidence of acute ICH, edema or midline shift. Brain MRI ordered Head CT 09/01/2016 - interval large acute right middle cerebral artery territorial infarct involving the right basal ganglia with mass effect effacing the cortical suci as well as mild effacement of the right lateral ventricle and very minimal shift towards the left. Note is made of a hyperdense right middle cerebral artery sign suggestive of thrombosis/occlusion. Correlation with MRI/ MRA of the brain is recommended. Endocrine: Diabetes Mellitus Assessment/Plan: On Glipizide @ home, will put on Novolog sliding scale Now on Clinimax, will start on Levemir Monitor capillary glucose HgbA1c 8.7 Renal: End Stage Renal Disease Assessment/Plan: Dialysis today, renal following Monitor Bun/Creat. Cardiology Atrial Fibrillation -new diagnosis/new onset Afib Assessment/Plan: EKG 08/31/2016 show atrial fib @ 68, when compared to EKG of 07/29/2016, atrial fib has replaced SR Will start on Lopressor IV while NPO for rate control Will await Neurology input on terminal supervisor anticoags F.E.N. Fluids: no IVF, on dialysis, anuria Electrolytes: monitor BMP Nutrition: NPO: failed bedside swallow evaluation, repeat test when pt more stable Prophylaxis: DVT: Heparin BID - OK to continue as per neurosurgeon GI: Protonix IVPB Disposition: Requires inpatient hospitalization for his acute/emergent condition. Awaiting ICU transfer. Full Code. Visit type - Emergency Visit Emergency Visit: Yes ED Registration Date: 08/31/16 Care time: The patient presented to the Emergency Department on the above date and was hospitalized for further evaluation of their emergent condition. - New Patient This patient is new to me today: No - Critical Care Critical Care patient: Yes Total Critical Care Time (in minutes): 60 Critical Care Statement: The care of this patient involved high complexity decision making to prevent further life threatening deterioration of the patient 's condition and/or to evalute & treat vital organ system(s) failure or risk of failure. - Discharge Referral Referred to [facility] Med [facility] No
--- NOTE | 2016-09-01 09:23 | CON.NEURO ---
Consult - History of Present Illness History of Present Illness: 11 Year old male history of ESRD on HD and DM, HTN AN DhYPERLIPIDEMIAL . He has left sided hemiparesis on night of sunday (august 30) and was brought to hospital and found to have left sided hemparsis, facial droop and initial ct scan is normal. He is also found to have atrial fibrillation he is currently on aspirin and he can not swallow because of mental status change - Past Medical History Cardio/Vascular: Yes: CAD, HTN, Hyperlipdemia. No: Deep Vein Thrombosis Renal/: Yes: Renal Failure, Hemodialysis, Other (makes a small amount of urine daily) Endocrine: Yes: Diabetes Mellitus - Alcohol/Substance Use Hx Alcohol Use: No - Smoking History Smoking history: Never smoked Aproximately how many cigarettes per day: 0 Home Medications - Allergies Allergies/Adverse Reactions: Allergies Allergy/AdvReac Type Severity Reaction Status Date / Time No Known Drug Allergies Allergy Verified 08/31/16 02:45 - Home Medications Home Medications: Ambulatory Orders Hydralazine HCl [Apresoline] 50 mg PO TID 10/05/11 Isosorbide Mononitrate [Imdur -] 30 mg PO DAILY 10/05/11 Glipizide [Glipizide ER] 2.5 mg PO BID 10/12/14 Meclizine HCl [Antivert -] 25 mg PO TID PRN #14 tablet 01/25/15 Labetalol HCl [Normodyne -] 0 mg PO ASDIR 08/31/16 Physical Exam-Neuro Vital Signs: Vital Signs Temperature 98.8 F 09/01/16 07:10 Pulse Rate 85 09/01/16 09:15 Respiratory Rate 18 09/01/16 09:15 Blood Pressure 144/99 09/01/16 09:15 O2 Sat by Pulse Oximetry (%) 98 08/31/16 21:00 Labs: CBC, BMP 09/01/16 05:35 09/01/16 05:35 INR, PTT INR 1.34 (0.82-1.09) H 08/31/16 02:40 NIH Stroke Scale - Total Score NIH Stroke Scale Score: 0 Imaging - Results X-ray: Report Reviewed Assessment/Plan 81 Year old male history of ESRD on HD and DM, HTN AN DhYPERLIPIDEMIAL . He has left sided hemiparesis on night of sunday (august 30) and was brought to hospital and found to have left sided hemparsis, facial droop and initial ct scan is normal. He is also found to have atrial fibrillation he is currently on aspirin and he can not swallow because of mental status change PMH as above FH,ROS,Medicaiton reviwed in chart Neurological Examiantion drowsy and today he looks worse thatn yesterday and only one time able to follow command eye are conjugate deviated to right , and there is dense left sided hemiparesis and left facial droopiness CT reviwed and was normal Assessment- large right mca stroke with slight worsening of mental status, first three to five days are critical as there is worsening of cerebral edema Plan repeat ct head, if there is midline shift or massive edema, consider shifting to ICU and Neurosurgery consult - Conitnue aspirin - dvt prophylaxis and pt and swallow evluation - Supportive crae - prognosis is guarded pleas feel free to call me if any question, Thank for consult Rober Guy MD
--- NOTE | 2016-09-01 10:45 | PN ---
Progress Note, [employer] - Note Progress Note: Lying fairly flat, having Dialysis. No coughing, drooling, congestion. Sleeping now, up at night, restless. Non verbal, not following commands for nursing. Consider Clinimix if not medically contraindicated. Plan: MBS Sunday if more alert. Monitor pulmonary/neurologic status.
--- NOTE | 2016-09-01 11:08 | PN ---
Progress Note (short form) - Note Progress Note: S: 81 year old ukrainian male, admitted with altered mental status, left sided hemiplegia and aphasia, history of diabetes mellitus, atrial fibrillation, hypertension, end stage renal disease, dialysis dependent. Patient is agitated, has dense left hemiplegia, poor response to verbal stimuli. Active Medications Generic Name Dose Route Start Last Admin Trade Name Freq PRN Reason Stop Dose Admin Aspirin 600 mg 09/01/16 10:00 Asa Suppository - [place] DAILY [facility]ULIO Heparin Sodium (Porcine) 5,000 unit 08/31/16 22:00 08/31/16 23:42 Heparin - SQ 5,000 unit BID TULIO Administration Insulin Aspart 1 vial 08/31/16 16:30 09/01/16 06:27 Novolog Vial Sliding Scale - SQ Not Given ACHS [facility] Protocol Metoprolol Tartrate 5 mg 08/31/16 18:00 09/01/16 06:28 Lopressor Injection - IVPB Not Given Q4H-IV TULIO O: 81 year old male was in no acute distress, no pallor, cyanosis, clubbing, or jaundice. Last Vital Signs Temp Pulse Resp BP Pulse Ox 98.8 F 71 18 128/76 95 09/01/16 07:10 09/01/16 10:45 09/01/16 10:45 09/01/16 10:45 09/01/16 08:00 Neck: Supple, no JVD, negative HJR, carotids were equal and upstrokes were normal, no thyromegaly appreciated. Heart: PMI was in the 5th intercostal space, no heaves or thrills, heart sounds are partly obscured by coarse breath sounds. No murmur or gallops were appreciated. Lungs: Coarse breath sounds. Abdomen: Soft, nontender, no hepatosplenomegaly appreciated, and no palpable masses were felt. Extremities: No calf tenderness or dependent edema. CBC, BMP 09/01/16 05:35 09/01/16 05:35 Laboratory Results - last 24 hr 08/31/16 08/31/16 08/31/16 10:30 15:33 23:40 WBC RBC Hgb Hct MCV MCHC RDW Plt Count MPV Neutrophils % Lymphocytes % Monocytes % Eosinophils % Basophils % Sodium Potassium Chloride Carbon Dioxide Anion Gap BUN Creatinine Creat Clearance w eGFR POC Glucometer [phone] 136 Random Glucose Hemoglobin A1c % Calcium Phosphorus Magnesium Total Bilirubin AST ALT Alkaline Phosphatase Total Protein Albumin Triglycerides Cholesterol Total LDL Cholesterol HDL Cholesterol TSH 09/01/16 09/01/16 09/01/16 05:35 05:35 05:35 WBC 10.8 H D RBC 3.82 L Hgb 12.0 D Hct 35.8 MCV 93.7 MCHC 33.5 RDW 14.9 Plt Count 214 MPV 9.5 Neutrophils % 80.6 D Lymphocytes % 8.0 D Monocytes % 10.1 Eosinophils % 0.8 D Basophils % 0.5 Sodium 137 Potassium 6.1 H* D Chloride 99 Carbon Dioxide 23 Anion Gap 15 BUN 68 H D Creatinine 8.0 H* D Creat Clearance w eGFR 6.64 POC Glucometer Random Glucose 179 H D Hemoglobin A1c % 8.7 H D Calcium 9.2 Phosphorus Magnesium 2.3 Total Bilirubin 0.7 D AST 23 ALT 33 Alkaline Phosphatase 134 H Total Protein 7.2 Albumin 3.4 Triglycerides 74 D Cholesterol 125 Total LDL Cholesterol 57 HDL Cholesterol 58 D TSH 1.34 09/01/16 09/01/16 06:24 07:15 WBC RBC Hgb Hct MCV MCHC RDW Plt Count MPV Neutrophils % Lymphocytes % Monocytes % Eosinophils % Basophils % Sodium Potassium Chloride Carbon Dioxide Anion Gap BUN Creatinine Creat Clearance w eGFR POC Glucometer 175 Random Glucose Hemoglobin A1c % Calcium Phosphorus 5.2 H Magnesium Total Bilirubin AST ALT Alkaline Phosphatase Total Protein Albumin Triglycerides Cholesterol Total LDL Cholesterol HDL Cholesterol TSH ECG 08/31/2016: Atrial fibrillation with moderate ventriucalr response, left anterior zane block, intraventricular conduction delay of the Right bundle branch block type. Poor R wave progression V1 to V4, possibility of an anterior wall myocardial infarction cannot be excluded. ST an T wave abnormalities. Impression: (1) CVA (cerebral vascular accident), with dense left hemiplegia and altered mental status. Code(s): I63.9 - CEREBRAL INFARCTION, UNSPECIFIED Qualifiers: CVA mechanism: embolism Precerebral and cerebral artery: middle cerebral artery Laterality of affected vessel: right Qualified Code(s ): I63.411 - Cerebral infarction due to embolism of right middle cerebral artery (2) ESRD (end stage renal disease) on dialysis Code(s): N18.6 - END STAGE RENAL DISEASE Z99.2 - DEPENDENCE ON RENAL DIALYSIS (3) Systolic dysfunction without heart failure Code(s): I51.9 - HEART DISEASE, UNSPECIFIED (4) Hyperlipidemia associated with type 2 diabetes mellitus Code(s): E11.69 - TYPE 2 DIABETES MELLITUS WITH OTHER SPECIFIED COMPLICATION E78.5 - HYPERLIPIDEMIA, UNSPECIFIED (5) Hypertensive cardiomyopathy Code(s): I11.9 - HYPERTENSIVE HEART DISEASE WITHOUT HEART FAILURE I43 - CARDIOMYOPATHY IN DISEASES CLASSIFIED ELSEWHERE Qualifiers: Heart failure presence: without heart failure Qualified Code(s): I11.9 - Hypertensive heart disease without heart failure; I43 - Cardiomyopathy in diseases classified elsewhere (6) Atrial fibrillation Code(s): I48.91 - UNSPECIFIED ATRIAL FIBRILLATION Qualifiers: Atrial fibrillation type: persistent Qualified Code(s): I48.1 - Persistent atrial fibrillation (7) Hyperkalemia Code(s): E87.5 - HYPERKALEMIA Recommendations: 1. Correction of hyperkalemia. 2. Continue medications as outlined. Prognosis: Critical Attestation: Documentation prepared by Umesh Carrasco, acting as medical chemist for Brock Davis MD.
--- NOTE | 2016-09-01 12:36 | PN ---
Progress Note (short form) - Note Progress Note: Renal Follow up for ESRD on HD Pt seen and examined on dialysis BP stable, access with good function goal UF is 2kg pt very lethargic this am as per nurse he was agitated overnight s/p 2nd CT Head this am Vital Signs Temperature 99.1 F 09/01/16 12:10 Pulse Rate 85 09/01/16 12:10 Respiratory Rate 18 09/01/16 10:45 Blood Pressure 133/68 09/01/16 11:41 O2 Sat by Pulse Oximetry (%) 95 09/01/16 08:00 Intake & Output 08/29/16 08/30/16 08/31/16 09/01/16 23:59 23:59 23:59 23:59 Intake Total 0 Balance 0 Weight 180 lb 0.013 oz 151 lb 2 oz Gen: NAD, lethargic HEENT: NC/AT, MMM, No JVD CVS: RRR, No M/R Lungs: CTA, no rales Abd: Soft, Obese, NT/ND Ext: no edema, clubbing or cyanosis CBC, BMP 09/01/16 05:35 09/01/16 05:35 Laboratory Tests 09/01/16 09/01/16 09/01/16 05:35 05:35 07:15 Hemoglobin A1c % 8.7 H D Calcium 9.2 Phosphorus 5.2 H Albumin 3.4 Current Medications Aspirin (Asa Suppository -) 600 mg [place] DAILY TULIO Heparin Sodium (Porcine) (Heparin -) 5,000 unit SQ BID TULIO Last Admin: 08/31/16 23:42 Dose: 5,000 unit Amino Acids (Clinimix -) 1,000 mls @ 42 mls/hr IV Q12H [facility] Insulin Aspart (Novolog Vial Sliding Scale -) 1 vial SQ ACHS [facility] PRN Reason: Protocol Last Admin: 09/01/16 06:27 Dose: Not Given Metoprolol Tartrate (Lopressor Injection -) 5 mg IVPB Q4H-IV TULIO Last Admin: 09/01/16 11:41 Dose: Not Given A/P 81 year old Gentleman with PMhx of ESRD on HD (MWF), Hypertension, CHF, DM2 who presented with AMS, unilateral weakness and found to have an acute CVA. #Acute MCA Stroke Management as per Neurology Repeat CT showed mass effect Can continue Clinamix for now as pt is NPO #New onset Afib Cardiology following #ESRD on HD/hyperkalemia tolerated dialysis well 2kg UF #CKD related Anemia Hgb at [place] no KARIE at this time #DM continue insulin as per primary #Hypertension allow permissive hypertension as per Neurology w Pola Darnell DO
[2016-09-01] MEDS: AMINO ACIDS 4.25%/D5W 1,000 ML IV SCH (14:25)
[2016-09-01] MEDS: ASPIRIN SUPPOSITORY 600 MG SUPP.RECT PR SCH (14:25)
[2016-09-01] MEDS: HEPARIN NA (PORCINE) 5,000 UNITS/ML 1ML VIAL SQ SCH ×2 (14:26→22:06)
--- NOTE | 2016-09-01 16:28 | PN ---
Progress Note (short form) - Note Progress Note: NEUROSURGERY CONSULT DICTATED Chart reviewed Pt examined Son at bedside H/o ESRD on HD and DM, HTN and hypercholesterolemia . He has left sided hemiparesis on night of Sunday (August 30) and was brought to hospital and found to have left sided hemiparesis, facial droop and initial CT scan is normal. In atrial fibrillation. On aspirin and SQ heparin. PE: 99.1, 157/66 HEENT- NC/AT; Neck- supple; Cor- irreg; Lungs- CTA B; Abd- benign; Ext- L UE AVF ; swelling Obtunded; not following command CN- pupils 5 mm sluggish; Motor- R side localizing to pain; Sensation- difficult to assess; DTR- hyporeflexia Head CT (initial)- mild atrophy, no bleed, no defined stroke F/u head CT- R MCA defined large ischemic stroke with mild mass effect on lat ventricle; and mild shift INR 1.34 Large R MCA ischemic stroke Afib likely the cause No neurosurgical intervention recommended for this elderly gentleman with significant medical co-morbidities Prognosis poor D/w son, [id number], and SERVER PROGRAMMER
[2016-09-01] MEDS: levETIRAcetam 500 MG/5 ML INJECTION VIAL IVPB SCH ×2 (17:59→22:06)
[2016-09-02] MEDS: METOPROLOL TARTRATE 5 MG/5 ML VIAL IVPB SCH ×7 (01:46→22:08)
[2016-09-02] MEDS ORDERED: LEVOFLOXACIN 500 MG IVPB 100 ML IVPB ONE ×2 (02:47→04:00)
--- NOTE | 2016-09-02 02:51 | HOSP ---
Subjective - Review of Symptoms Events since last encounter: patient lethargic and febrile Subjective: patient more lethargic. withdraws from pain but doesnt open eyes or talk. here for cva, failed swallow test. upper respiratory gurgling and ronchi in lung schafer. new fever 101.8. O2 sat 99% on NC 2L Physical Examination Vital Signs: Vital Signs Temperature 98.0 F 09/02/16 02:13 Pulse Rate 98 H 09/02/16 02:13 Respiratory Rate 18 09/02/16 02:13 Blood Pressure 140/68 09/02/16 02:13 O2 Sat by Pulse Oximetry (%) 98 09/01/16 21:00 Constitutional: Yes: No Distress, Other (unresponsive. snoring.) Eyes: Yes: Cataracts, Other (R pupil larger thank L. chronic) HENT: Yes: Atraumatic Neck: Yes: Supple Cardiovascular: Yes: Regular Rate and Rhythm, S1, S2. No: JVD Respiratory: Yes: Rales, Rhonchi, Other (gurgling upper aurway sounds) Gastrointestinal: Yes: Normal Bowel Sounds, Soft Neurological: Yes: Unresponsive (doent not wake up but pushes my hand away wiht R hand during sternal rub) Labs: CBC, BMP 09/01/16 05:35 09/01/16 05:35 Hospitalist Encounter Assessment: Lethargy in patient here for CVA, on HD end stage renal anuric, history chf . -likely due to fever 101.8 -hemodynamically stable -possible aspiration PNA -tylenol -stat blood cultures -stat cbc bmp mag phos -hold clinamix -CT head from this AM shows edema, mild midline shift, already on keppra. Will hold off decadron, this is likely due to infection rather than increased edema Visit type - Emergency Visit Emergency Visit: Yes ED Registration Date: 08/31/16 Care time: The patient presented to the Emergency Department on the above date and was hospitalized for further evaluation of their emergent condition. - New Patient This patient is new to me today: No - Critical Care Critical Care patient: No
[2016-09-02] MEDS: ACETAMINOPHEN 650 MG SUPP.RECT PR PRN (03:00)
[2016-09-02 03:27] LABS: MCH 30.8 pg (25.7-33.7); MEAN CELL VOLUME 93.6 fl (80-96); MEAN PLT VOLUME 9.6 fl (7.5-11.1); PLATELET COUNT 216 K/MM3 (134-434); RDW 14.5 % (11.9-15.9)
[2016-09-02 03:49] LABS: CALCIUM 8.8 mg/dL (8.5-10.1); COCKROFT - GAULT 10.55; CREATININE 5.5 mg/dL (0.7-1.3); MAGNESIUM 2.2 mg/dL (1.8-2.4); PHOSPHOROUS 4.4 mg/dL (2.5-4.9)
[2016-09-02] MEDS: INSULIN SLIDING SCALE (NOVOLOG) 1 VIAL SQ SCH ×4 (06:24→22:46)
--- NOTE | 2016-09-02 08:19 | PN ---
Physical Exam: SUBJECTIVE: Patient seen and examined, daughter in law at the bedside who provided the history. OBJECTIVE: Patient minimally responsive to my voice, he will grunt when I call his name, not following any other commands patient had a fever overnight of 101.8F, given Levaquin 500mg x 1 for likely aspiration pna WBC increased to 13 from 10.8 Chest xray shows clear lungs with left lower lobe opacity, on exam some congestion auscultated on left lower lung field Concern for aspiration pneumona, Temp 99.7 - Clinimax on hold Will give one dose of Zosyn x 1 and reach out to ID for further antibiotic order , blood cultures pending Patient does not have any other obvious source of infection - he has a left upper arm fistula UA/UC ordered but patient makes very little urine so will need a straight cath awaiting transfer to ICU - pending bed availability Vital Signs Period Temp Pulse Resp BP Sys/Avila Pulse Ox Last 24 Hr 98.0 F-101.8 F 71-98 18-20 128-161/64-99 98-99 GENERAL: lethargic, follows simple commands, left facial droop HEAD: +left facial droop, left neglect, lethargic - not opening his eyes when asked EARS, NOSE, THROAT: Ears normal, nares patent, oropharynx clear without exudates. Moist mucous membranes. NECK: Normal range of motion, supple without lymphadenopathy, JVD, or masses. LUNGS: Breath sounds equal, diminished bilaterally. HEART: atrial fibrillation on tobacco grower ABDOMEN: Soft, nontender, not distended, normoactive bowel sounds, no guarding, no rebound, no masses. No hepatomegaly or splenomegaly. MUSCULOSKELETAL: Normal range of motion at all joints. No bony deformities or tenderness. No CVA tenderness. UPPER EXTREMITIES: + bruit/thrill of left upper arm LOWER EXTREMITIES: 2+ pulses, warm, well-perfused. No calf tenderness. No peripheral edema. NEUROLOGICAL: lethargic, non verbal secondary to lethargy - acute stroke SKIN: + bruit and thrill of left upper arm, left lower forearm with +sutures Laboratory Results - last 24 hr 09/01/16 09/01/16 09/01/16 05:35 05:35 07:15 WBC RBC Hgb Hct MCV MCHC RDW Plt Count MPV Sodium 137 Potassium 6.1 H* D Chloride 99 Carbon Dioxide 23 Anion Gap 15 BUN 68 H D Creatinine 8.0 H* D Creat Clearance w eGFR 6.64 POC Glucometer Random Glucose 179 H D Hemoglobin A1c % 8.7 H D Calcium 9.2 Phosphorus Magnesium 2.3 Total Bilirubin 0.7 D AST 23 ALT 33 Alkaline Phosphatase 134 H Total Protein 7.2 Albumin 3.4 Triglycerides 74 D Cholesterol 125 Total LDL Cholesterol 57 HDL Cholesterol 58 D TSH 1.34 Hepatitis C Antibody Cancelled 09/01/16 09/01/16 09/01/16 07:15 07:15 16:27 WBC RBC Hgb Hct MCV MCHC RDW Plt Count MPV Sodium Potassium Chloride Carbon Dioxide Anion Gap BUN Creatinine Creat Clearance w eGFR POC Glucometer 175 Random Glucose Hemoglobin A1c % Calcium Phosphorus 5.2 H Magnesium Total Bilirubin AST ALT Alkaline Phosphatase Total Protein Albumin Triglycerides Cholesterol Total LDL Cholesterol HDL Cholesterol TSH Hepatitis C Antibody <0.1 09/01/16 09/02/16 09/02/16 22:04 03:00 03:00 WBC 13.0 H RBC 3.86 L Hgb 11.9 Hct 36.2 MCV 93.6 MCHC 33.0 RDW 14.5 Plt Count 216 MPV 9.6 Sodium 142 Potassium 4.8 D Chloride 100 Carbon Dioxide 30 D Anion Gap 12 BUN 47 H D Creatinine 5.5 H D Creat Clearance w eGFR POC Glucometer 189 Random Glucose 165 H Hemoglobin A1c % Calcium 8.8 Phosphorus 4.4 Magnesium 2.2 Total Bilirubin AST ALT Alkaline Phosphatase Total Protein Albumin Triglycerides Cholesterol Total LDL Cholesterol HDL Cholesterol TSH Hepatitis C Antibody 09/02/16 05:04 WBC RBC Hgb Hct MCV MCHC RDW Plt Count MPV Sodium Potassium Chloride Carbon Dioxide Anion Gap BUN Creatinine Creat Clearance w eGFR POC Glucometer 175 Random Glucose Hemoglobin A1c % Calcium Phosphorus Magnesium Total Bilirubin AST ALT Alkaline Phosphatase Total Protein Albumin Triglycerides Cholesterol Total LDL Cholesterol HDL Cholesterol TSH Hepatitis C Antibody Active Medications Generic Name Dose Route Start Last Admin Trade Name Freq PRN Reason Stop Dose Admin Acetaminophen 650 mg 09/02/16 02:51 09/02/16 03:00 Tylenol Suppository - FL 650 mg Q4H PRN Administration FEVER OR PAIN Aspirin 600 mg 09/01/16 10:00 09/01/16 14:25 Asa Suppository - [place] 600 mg DAILY TULIO Administration Heparin Sodium (Porcine) 5,000 unit 08/31/16 22:00 09/01/16 22:06 Heparin - SQ 5,000 unit BID TULIO Administration Amino Acids 1,000 mls @ 42 mls/hr 09/01/16 13:00 09/01/16 14:25 Clinimix - IV 42 mls/hr Q12H [facility] Administration Pantoprazole Sodium 100 mls @ 200 mls/hr 09/02/16 10:00 Protonix 40mg Ivpb (Pre-Docked) IVPB DAILY [facility]IO Insulin Aspart 1 vial 08/31/16 16:30 09/02/16 06:24 Novolog Vial Sliding Scale - SQ Not Given ACHS [facility] Protocol Levetiracetam 500 mg 09/01/16 16:45 09/01/16 22:06 Keppra Injection - IVPB 500 mg BID TULIO Administration Metoprolol Tartrate 5 mg 08/31/16 18:00 09/02/16 06:19 Lopressor Injection - IVPB 5 mg Q4H-IV TULIO Administration ASSESSMENT/PLAN: Patient is a 81 year old male with a significant past medical history of ESRD with dialysis scheduled on MWF. 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 His other medical history includes diabetes, hypertension, hyperlipidemia. He presented to the ED from home for AMS and left-sided weakness. I spoke to son at the bedside on admission and he states that his father is normally able to ambulate and care for himself . His last dialysis was the day prior to admission, without incident. Family reports that patient was in his usual state of health when he noted that his father became non verbal with left sided weakness. Family contacted EMS and patient was brought into the ER and a kofi Will was called. A swallow evaluation was performed on 08/31 at the bedside but patient was too lethargic to participate and required repeated verbal cues to swallow apple sauce. During swallow evaluation, patients eyes deviated to the right with left hemiplegia. He coughed when asked but cough was noted to be very weak. He is too high risk for aspiration at this time. Will keep him NPO, Clinimax now on hold as pt had aspiration event overnight. Will ask RD to follow. Imaging: Head CT 08/31/2016 - No evidence of acute ICH, edema or midline shift. EKG of 07/29/2016, atrial fib has replaced SR Will start on Lopressor IV while NPO for rate control Head CT 09/01/2016 - interval large acute right middle cerebral artery territorial infarct involving the right basal ganglia with mass effect effacing the cortical suci as well as mild effacement of the right lateral ventricle and very minimal shift towards the left. Note is made of a hyperdense right middle cerebral artery sign suggestive of thrombosis/occlusion. Correlation with MRI/ MRA of the brain is recommended. ID: Pulmonary Aspiration Pneumonia - rule out - acute Assessment/Plan: Possible aspiration pneumonia overnight Chest Xray shows clear right lung field, left lung with opacity on left lower lobe, some LLL congestion auscultated patient has remained NPO but may be aspirating his secretion Fever of 101.8 and WBC trended up 10>13, 2L 99% Given Levaquin 500mg x 1 overnight, will give Zosyn x 1 and have ID evaluate for further orders Patient has ESRD so all meds have to be renally dosed Hold Clinimax until clinically improved Blood cultures and urine cultures ordered Neurology: CVA/TIA - left sided facial droop, left neglect, left sided weakness Assessment/Plan: On ASA 325mg FL Followed by neurology and neurosurgery On admission, not candidate for thrombolysis as patient was outside therapeutic window. On tobacco grower: atrial fib 90s, with PVCs Will start on a Statin once able to swallow Carotid doppler ordered and reviewed Brain MRI ordered - awaiting Neuro surgeon saw pt yesterday, pt not candidate for surgical intervention at this time Neuro checks q 4 Seizure precautions - started on IV Keppra 500mg BID started 09/01 Metabolic Encephalopathy - acute Assessment/Plan: Likely secondary to acute CVA Monitor mental status which seems to be worsening since admission Neuro and neurosurgery following Head CT 08/31/2016 - No evidence of acute ICH, edema or midline shift. Head CT 09/01/2016 - interval large acute right middle cerebral artery territorial infarct involving the right basal ganglia with mass effect effacing the cortical suci as well as mild effacement of the right lateral ventricle and very minimal shift towards the left. Note is made of a hyperdense right middle cerebral artery sign suggestive of thrombosis/occlusion. Correlation with MRI/ MRA of the brain is recommended. Endocrine: Diabetes Mellitus Assessment/Plan: On Glipizide @ home, will put on Novolog sliding scale Monitor capillary glucose HgbA1c 8.7 Renal: End Stage Renal Disease Assessment/Plan: Next dialysis Sunday (MWF schedule), renal following Monitor Bun/Creat. Cardiology Atrial Fibrillation -new diagnosis/new onset Afib Assessment/Plan: EKG 08/31/2016 show atrial fib @ 68, when compared to EKG of 07/29/2016, atrial fib has replaced SR Will start on Lopressor IV while NPO for rate control No anticoags for now, as per neurosurgeon, Heparin and ASA only F.E.N. Fluids: no IVF, on dialysis, anuria Electrolytes: monitor BMP Nutrition: NPO: failed bedside swallow evaluation, repeat test when pt more stable Prophylaxis: DVT: Heparin BID - OK to continue as per neurosurgeon GI: Protonix IVPB Disposition: Requires inpatient hospitalization for his acute/emergent condition. Awaiting ICU transfer. Full Code. Visit type - Emergency Visit Emergency Visit: Yes ED Registration Date: 08/31/16 Care time: The patient presented to the Emergency Department on the above date and was hospitalized for further evaluation of their emergent condition. - New Patient This patient is new to me today: No - Critical Care Critical Care patient: Yes Total Critical Care Time (in minutes): 45 Critical Care Statement: The care of this patient involved high complexity decision making to prevent further life threatening deterioration of the patient 's condition and/or to evalute & treat vital organ system(s) failure or risk of failure.
[2016-09-02] MEDS ORDERED: PIPERACILLIN/TAZOB 2.25 GM 2.25 GM in DEXTROSE 5%-WATER - 50 ML IVPB ONE (08:34)
--- NOTE | 2016-09-02 09:39 | PN ---
Progress Note (short form) - Note Progress Note: NEUROSURGERY Received Levaquin According to family pt does not respond much to their voice either PE: Tmax 101.8 now 99.7, 144/73 HEENT- NC/AT; Neck- supple; Cor- irreg; Lungs- CTA B; Abd- benign; Ext- L UE AVF ; swelling Obtunded; not following command CN- pupils 5 mm sluggish; Motor- R side localizing to pain; Sensation- difficult to assess; DTR- hyporeflexia Head CT (initial)- mild atrophy, no bleed, no defined stroke F/u head CT- R MCA well-defined large ischemic stroke with mass effect on R lat ventricle; and mild shift INR 1.34 Large R MCA ischemic stroke, worsening mass effect to be expected before subsiding Afib likely the cause and could cause further embolic episodes No neurosurgical intervention recommended for this elderly gentleman with significant medical co-morbidities including ESRD on HD, Afib, DM Prognosis poor given the above F/u head CT today or tomorrow to assess mass effect Son and daughter in law at bedside and will speak to family about intubation etc if needed Supportive care
[2016-09-02] MEDS: AMINO ACIDS 4.25%/D5W 1,000 ML IV SCH ×2 (09:54→12:29)
[2016-09-02] MEDS: PANTOPRAZOLE SODIUM 100 ML IVPB SCH (09:58)
[2016-09-02] MEDS: HEPARIN NA (PORCINE) 5,000 UNITS/ML 1ML VIAL SQ SCH (09:58)
[2016-09-02] MEDS: levETIRAcetam 500 MG/5 ML INJECTION VIAL IVPB SCH ×2 (09:58→22:09)
[2016-09-02] MEDS: ASPIRIN SUPPOSITORY 600 MG SUPP.RECT PR SCH (10:00)
--- NOTE | 2016-09-02 10:50 | PN ---
Progress Note, Physician Chief Complaint: 81 y/o male admitted with massive ischemic stroke. The patient is seen in his bed. Family visiting. Poorly responsive. The left side is flaccid and not moving. - Current Medication List Current Medications: Active Medications Acetaminophen (Tylenol Suppository -) 650 mg LA Q4H PRN PRN Reason: FEVER OR PAIN Last Admin: 09/02/16 03:00 Dose: 650 mg Aspirin (Asa Suppository -) 600 mg LA DAILY [facility] Last Admin: 09/02/16 10:00 Dose: 600 mg Heparin Sodium (Porcine) (Heparin -) 5,000 unit SQ BID [facility] Last Admin: 09/02/16 09:58 Dose: 5,000 unit Amino Acids (Clinimix -) 1,000 mls @ 42 mls/hr IV Q12H [facility] Last Admin: 09/02/16 09:54 Dose: Not Given Pantoprazole Sodium (Protonix 40mg Ivpb (Pre-Docked)) 100 mls @ 200 mls/hr IVPB DAILY [facility] Last Admin: 09/02/16 09:58 Dose: 200 mls/hr Insulin Aspart (Novolog Vial Sliding Scale -) 1 vial SQ ACHS [facility] PRN Reason: Protocol Last Admin: 09/02/16 06:24 Dose: Not Given Levetiracetam (Keppra Injection -) 500 mg IVPB BID [facility] Last Admin: 09/02/16 09:58 Dose: 500 mg Metoprolol Tartrate (Lopressor Injection -) 5 mg IVPB Q4H-IV [facility] Last Admin: 09/02/16 09:59 Dose: Not Given - Objective Vital Signs: Vital Signs Temperature 99.7 F H 09/02/16 05:25 Pulse Rate 90 09/02/16 09:59 Respiratory Rate 18 09/02/16 05:25 Blood Pressure 115/60 09/02/16 09:59 O2 Sat by Pulse Oximetry (%) 99 09/02/16 02:30 Constitutional: Yes: No Distress Eyes: Yes: EOM Intact HENT: Yes: Atraumatic Neck: Yes: Supple Cardiovascular: Yes: S1, S2 Respiratory: Yes: Diminished, On Nasal O2 Gastrointestinal: Yes: Normal Bowel Sounds Edema: No Neurological: Yes: Unresponsive ...Motor Strength: LUE (flaccid), LLE (flaccid) Labs: CBC, BMP 09/02/16 03:00 09/02/16 03:00 INR, PTT INR 1.34 (0.82-1.09) H 08/31/16 02:40 Problem List - Problems (1) Atrial fibrillation Code(s): I48.91 - UNSPECIFIED ATRIAL FIBRILLATION Qualifiers: Atrial fibrillation type: persistent Qualified Code(s): I48.1 - Persistent atrial fibrillation (2) CVA (cerebral vascular accident) Code(s): I63.9 - CEREBRAL INFARCTION, UNSPECIFIED Qualifiers: CVA mechanism: embolism Precerebral and cerebral artery: middle cerebral artery Laterality of affected vessel: right Qualified Code(s ): I63.411 - Cerebral infarction due to embolism of right middle cerebral artery (3) ESRD (end stage renal disease) on dialysis Code(s): N18.6 - END STAGE RENAL DISEASE Z99.2 - DEPENDENCE ON RENAL DIALYSIS (4) Hyperlipidemia associated with type 2 diabetes mellitus Code(s): E11.69 - TYPE 2 DIABETES MELLITUS WITH OTHER SPECIFIED COMPLICATION E78.5 - HYPERLIPIDEMIA, UNSPECIFIED (5) Aneurysm of arteriovenous dialysis fistula Code(s): T82.898A - [facility] COMPLICATION OF VASCULAR PROSTH DEV/GRFT, INIT Assessment/Plan 81 y/o male with ESRD, admitted with massive ischemic stroke. Patient remains comatose, and unresponsive to any stimuli. Discussed in detail with the family. Had uneventful dialysis yesterday. Discussed with Dr. Van Duenas. Will start on Decadron, in view of the Cerebral edema and mass effect. Will closely monitor the blood Glucose. Cortney Link MD
[2016-09-02] MEDS: DEXAMETHASONE SOD PHOSPHATE 4 MG/1 ML VIAL IVPB SCH ×3 (12:29→16:39)
--- NOTE | 2016-09-02 13:29 | CONS ---
DATE OF CONSULTATION: DATE OF DICTATION: 09/01/2016 REQUESTING PHYSICIAN: TAN Trujillo CENTRIFUGAL MACHINE TENDER: Van Duenas MD, Neurosurgery. CHIEF COMPLAINT: Right MCA ischemic stroke. HISTORY OF PRESENT ILLNESS: The patient is a 81-year-old right-handed male with a history of diabetes, end-stage renal disease on hemodialysis, hypertension, and hypercholesterolemia, who had presented with approximately 2 days' history of sudden onset of left hemiparesis and facial droop. His initial CT scan was normal. He was also subsequently found to be in atrial fibrillation. A followup CT scan demonstrated a well-defined right MCA stroke. Presently, the patient is in telemetry. He has not been verbal much and has not been highly responsive. He does respond to his grindstone language to some by report at times. PAST MEDICAL HISTORY: Significant for hypertension, diabetes, end-stage renal disease on hemodialysis, and hypercholesterolemia. CURRENT MEDICATIONS: Include subcutaneous heparin, Keppra, Lopressor, Clinimix, insulin sliding scale, aspirin, and Protonix. ALLERGIES: There are no known drug allergies. FAMILY HISTORY: Noncontributory. SOCIAL HISTORY: He does not smoke or drink. He lives at home with his family. He is retired. REVIEW OF SYSTEMS: Otherwise negative for other major cardiovascular, pulmonary, gastrointestinal, genitourinary, endocrinological, neurological, or psychological problems except for the above. PHYSICAL EXAMINATION: Vital Signs: Temperature of 99.1 and blood pressure of 157/66 with pulse rate of 86. HEENT: Normocephalic, atraumatic. Anicteric. Neck: Supple with no carotid bruit. Coronary: Demonstrated a regular rhythm. Lungs: Clear bilaterally, but he has decreased breath sounds at bases. Abdomen: Benign. Extremities: Shows A-V fistula in the proximal left upper extremity. Left lower extremity is edematous Neurological: He is obtunded and he opens his eyes to pain. He makes some sounds, but does not converse verbally. Cranial nerve examination shows the pupils to be 5-mm and sluggishly reactive bilaterally. He has left facial droop. Detailed examination is not possible because of lack of cooperation. Motor examination shows dense left hemiparesis. Right-sided strength is at least 3/5 as he withdraws/localized with pain with the upper and lower extremity. Sensory examination is difficult to fully assess. Deep tendon reflexes are hyporeflexic throughout. Toes are equivocal. LABORATORY EXAMINATION: INR to be 1.34. White blood cell count of 10,800, hemoglobin of 12, and platelet count of 214,000. Serum sodium of 137, potassium of 6.1, BUN of 68, and creatinine of 8. Hemoglobin A1C of 8.7. Hepatitis panel is pending. CT scan of the head initially performed at 3:00 a.m. on August 31, 2016, demonstrated no acute intracranial hemorrhage, edema, or shift. There is minimal cerebral atrophy. There is no hydrocephalus. A followup CT scan on September 01, 2016, at 9:00 a.m. demonstrated a large well-defined right MCA stroke with a possible MCA thrombus. There is effacement of the cortical sulci. The stroke involves both the cortex white matter and the basal ganglia on the right. There is mild mass effect on the midline as well as a compression of the right lateral ventricle. IMPRESSION: 1. Right middle cerebral artery stroke with mass effect and mild midline shift. 2. Atrial fibrillation. 3. Hypertension. 4. Diabetes. 5. End-stage renal disease on hemodialysis. RECOMMENDATIONS: The patient presents with acute right middle cerebral artery stroke with dense left hemiparesis. He is not highly responsive at this time. A CT scan demonstrated a well-defined MCA stroke. The patient is on aspirin for his stroke as well as subcutaneous heparin for DVT prophylaxis. The prognosis will be poor given his age, fairly large stroke including the basal ganglia, as well as multiple medical conditions including end-stage renal disease and diabetes. No neurosurgical intervention is recommended under such circumstances. The treatment approach was discussed with the patient's son who is at the bedside, as well as the [id number] who is a nurse by report. He should remain on Keppra for seizure prophylaxis given the well-defined large stroke. Heparin-free dialysis should be utilized and fluid overloading should be avoided if possible. All questions were answered at the bedside. The son was present throughout the entire consultation. VAN DUENAS M.D. RACHELLE/[id number]
--- NOTE | 2016-09-02 16:52 | PN ---
Progress Note (short form) - Note Progress Note: 81 Year old male history of ESRD on HD and DM, HTN and dyslipidemia.. He has left sided hemiparesis on night of sunday (august 30) and was brought to hospital and found to have left sided hemparsis, facial droop and initial ct scan is normal. He is also found to have atrial fibrillation he had ct scan yesterday and today, it showed very large stroke with mild midline shift and small petechial hemorrhage PMH as above FH,ROS,Medicaiton reviwed in chart Neurological Examiantion He is not responding to verbal stimuli and withdrawing to pain and not moving left side left sided facial palsy, bilateral pupils are small and sluggishly reactive eye are conjugate deviated to right , and there is dense left sided hemiparesis CT reviwed there is large ischemic stroke and mild petechial hemorrhage Assessment- large right mca stroke, with mild midline shift and petechia hemorrhage Plan r hold aspirin neurosurgery consult appreciated patient and family explained the prognosis mri of brain is cancelled as it would not make a difference at this time Palliative care is involved Thanks for consult Rober Guy MD
--- NOTE | 2016-09-02 17:14 | PN ---
Progress Note, Physician Chief Complaint: Events noted Unresponsive History of Present Illness: Patient was seen and examined. Poorly responsive. Chart was reviewed Family by bedside. Monitor reveals atrial fibrillation with variable ventricular response - Current Medication List Current Medications: Active Medications Acetaminophen (Tylenol Suppository -) 650 mg NC Q4H PRN PRN Reason: FEVER OR PAIN Last Admin: 09/02/16 03:00 Dose: 650 mg Dexamethasone Sodium Phosphate (Decadron Injection -) 4 mg IVPB Q6H-IV [facility] Last Admin: 09/02/16 16:39 Dose: Not Given Heparin Sodium (Porcine) (Heparin -) 5,000 unit SQ BID [facility] Last Admin: 09/02/16 09:58 Dose: 5,000 unit Pantoprazole Sodium (Protonix 40mg Ivpb (Pre-Docked)) 100 mls @ 200 mls/hr IVPB DAILY [facility] Last Admin: 09/02/16 09:58 Dose: 200 mls/hr Insulin Aspart (Novolog Vial Sliding Scale -) 1 vial SQ ACHS [facility] PRN Reason: Protocol Last Admin: 09/02/16 16:39 Dose: Not Given Levetiracetam (Keppra Injection -) 500 mg IVPB BID [facility] Last Admin: 09/02/16 09:58 Dose: 500 mg Metoprolol Tartrate (Lopressor Injection -) 5 mg IVPB Q4H-IV [facility] Last Admin: 09/02/16 15:06 Dose: 5 mg - Objective Vital Signs: Vital Signs Temperature 98.9 F 09/02/16 14:52 Pulse Rate 100 H 09/02/16 14:52 Respiratory Rate 18 09/02/16 14:52 Blood Pressure 144/70 09/02/16 14:52 O2 Sat by Pulse Oximetry (%) 98 09/02/16 09:00 Cardiovascular: Yes: Pulse Irregular, Murmur (2/6 SM), S1, S2 Respiratory: Yes: Diminished Gastrointestinal: Yes: Normal Bowel Sounds. No: Tenderness Edema: No Labs: CBC, BMP 09/02/16 03:00 09/02/16 03:00 INR, PTT INR 1.34 (0.82-1.09) H 08/31/16 02:40 Problem List - Problems (1) Atrial fibrillation Code(s): I48.91 - UNSPECIFIED ATRIAL FIBRILLATION Qualifiers: Atrial fibrillation type: persistent Qualified Code(s): I48.1 - Persistent atrial fibrillation (2) CVA (cerebral vascular accident) Code(s): I63.9 - CEREBRAL INFARCTION, UNSPECIFIED Qualifiers: CVA mechanism: embolism Precerebral and cerebral artery: middle cerebral artery Laterality of affected vessel: right Qualified Code(s ): I63.411 - Cerebral infarction due to embolism of right middle cerebral artery (3) ESRD (end stage renal disease) on dialysis Code(s): N18.6 - END STAGE RENAL DISEASE Z99.2 - DEPENDENCE ON RENAL DIALYSIS (4) Hyperlipidemia associated with type 2 diabetes mellitus Code(s): E11.69 - TYPE 2 DIABETES MELLITUS WITH OTHER SPECIFIED COMPLICATION E78.5 - HYPERLIPIDEMIA, UNSPECIFIED (5) Hypertensive cardiomyopathy Code(s): I11.9 - HYPERTENSIVE HEART DISEASE WITHOUT HEART FAILURE I43 - CARDIOMYOPATHY IN DISEASES CLASSIFIED ELSEWHERE Qualifiers: Heart failure presence: without heart failure Qualified Code(s): I11.9 - Hypertensive heart disease without heart failure; I43 - Cardiomyopathy in diseases classified elsewhere (6) Systolic dysfunction without heart failure Code(s): I51.9 - HEART DISEASE, UNSPECIFIED Assessment/Plan 1. Acute right MCA stroke 2. Persistent atrial fibrillation with variable ventricular response - new onset 3. LV systolic dysfunction - euvolemic 4. HTN/HCVD 5. Hyperlipidemia 6. Type 2 DM 7. ESRD on HD PLAN: 1. Echocardiography reveals mildly reduced LV systolic function. moderate to severe MR, moderate TR, mild to moderate , moderate AR, mild NC 2. Ideally needs to be on anticoagulation preferably Coumadin as patient is not a candidate for NOAC in view of ESRD, however; currently it has not been started in view of recent MCA stroke with risk of hemorrhagic conversion and underlying poor mental status and overall poor prognosis. It will be at the discretion of the Neurologist whether it would be feasible to start anticoagulation 3. Neuro input noted. Currently MRI of brain has been canceled for reason explained by Neurology 4. IV Lopressor 5. HD per renal 6. Palliative consultation Prognosis overall is poor Sean Clemosn MD
--- NOTE | 2016-09-02 18:56 | CONSULT ---
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 As per son, patient was last dialyzed yesterday without sequelae. Son reports patient was in his usual state of health at 8pm last night. When patient awoke at around 12am son noted the patient was nonverbal with left-sided weakness. States that the patient is normally alert, oriented, and active at baseline. EKG shows newly diagnosed afib, not candidate for thrombolysis as patient was outside therapeutic window. - History Source History Provided By: Family Member Limitations to Obtaining History: Clinical Condition - Past Medical History Cardio/Vascular: Yes: CAD, HTN, Hyperlipdemia. No: Deep Vein Thrombosis Renal/: Yes: Renal Failure, Hemodialysis, Other (makes a small amount of urine daily) Endocrine: Yes: Diabetes Mellitus - Alcohol/Substance Use Hx Alcohol Use: No - Smoking History Smoking history: Never smoked Aproximately how many cigarettes per day: 0 Home Medications - Allergies Allergies/Adverse Reactions: Allergies Allergy/AdvReac Type Severity Reaction Status Date / Time No Known Drug Allergies Allergy Verified 08/31/16 02:45 - Home Medications Home Medications: Ambulatory Orders RX: Scopolamine [Transderm-Scop] 1 each TD Q72H #10 patch.td.3 09/08/16 Review of Systems Unable to obtain ROS, reason: unable to obtain Physical Exam Vital Signs: Vital Signs Temperature 100.1 F H 09/02/16 18:00 Pulse Rate 98 H 09/02/16 18:21 Respiratory Rate 18 09/02/16 18:00 Blood Pressure 144/66 09/02/16 18:21 O2 Sat by Pulse Oximetry (%) 98 09/02/16 09:00 Constitutional: Yes: Other Eyes: Yes: Other HENT: Yes: Atraumatic Neck: Yes: Supple, Trachea Midline Cardiovascular: Yes: Tachycardia, Pulse Irregular, Murmur (systolic) Respiratory: Yes: Jett-Stewart Musculoskeletal: Yes: WNL Extremities: Yes: WNL Neurological: Yes: Dysarthria, Facial Droop, Other (obtunded,left sided paralysis) Psychiatric: Yes: Other Labs: CBC, BMP 09/02/16 03:00 09/02/16 03:00 Assessment/Plan - Problems (1) CVA (cerebral vascular accident) Code(s): I63.9 - CEREBRAL INFARCTION, UNSPECIFIED Qualifiers: CVA mechanism: embolism Precerebral and cerebral artery: middle cerebral artery Laterality of affected vessel: right Qualified Code(s ): I63.411 - Cerebral infarction due to embolism of right middle cerebral artery (2) ESRD (end stage renal disease) on dialysis Code(s): N18.6 - END STAGE RENAL DISEASE Z99.2 - DEPENDENCE ON RENAL DIALYSIS (3) Systolic dysfunction without heart failure Code(s): I51.9 - HEART DISEASE, UNSPECIFIED (4) Hyperlipidemia associated with type 2 diabetes mellitus Code(s): E11.69 - TYPE 2 DIABETES MELLITUS WITH OTHER SPECIFIED COMPLICATION E78.5 - HYPERLIPIDEMIA, UNSPECIFIED (5) Hypertensive cardiomyopathy Code(s): I11.9 - HYPERTENSIVE HEART DISEASE WITHOUT HEART FAILURE I43 - CARDIOMYOPATHY IN DISEASES CLASSIFIED ELSEWHERE Qualifiers: Heart failure presence: without heart failure Qualified Code(s): I11.9 - Hypertensive heart disease without heart failure; I43 - Cardiomyopathy in diseases classified elsewhere 6 aspiration pna plan patient s prognosis looks extremely grim i am going to start patient on abx very close monitoring discussed in length with patients family explained in detail
[2016-09-02] MEDS: AMPICILLIN NA/SULBACTAM NA 3 GM in SODIUM CHLORIDE 100 ML IVPB SCH (22:08)
[2016-09-03] MEDS: METOPROLOL TARTRATE 5 MG/5 ML VIAL IVPB SCH ×6 (02:00→21:28)
[2016-09-03] MEDS: INSULIN SLIDING SCALE (NOVOLOG) 1 VIAL SQ SCH ×4 (06:40→21:40)
[2016-09-03 07:09] LABS: BASOPHIL 0.3 % (0-2.0); EOSINOPHIL 0.8 % (0-4.5); MCH 31.2 pg (25.7-33.7); MEAN CELL VOLUME 94.7 fl (80-96); MEAN PLT VOLUME 9.9 fl (7.5-11.1); NEUTROPHILS 76.9 % (42.8-82.8); PLATELET COUNT 192 K/MM3 (134-434); RDW 14.4 % (11.9-15.9); WHITE BLOOD COUNT 13.7 K/mm3 (4.0-10.0)
--- NOTE | 2016-09-03 08:20 | PN ---
Physical Exam: SUBJECTIVE: Patient seen and examined. Patient moving his right side purposely, picking at his nose. Son Jet Arechiga @ the bedside. He is opting not to have his father intubated but will decide later, does not want to sign DNR/DNI paperwork at this time, needs more time to think. He does not want his father to suffer. Jet Arechiga (son and HCP) cell # [phone] OBJECTIVE: Discussion with son about his father, prognosis and goals of care. Son thinking about signing dnr/dni. Son is thinking and discussing dnr/dni status for his father and states "I dont want my father to suffer". " I dont want any surgery for my father". Patient is having more purposeful movements of his right arm Remains unresponsive to voice and tactile stimuli. Left lung with fine crackles Tmax 100.8 overnight Vital Signs Period Temp Pulse Resp BP Sys/Avila Pulse Ox Last 24 Hr 98.5 F-100.8 F 94-106 18-20 135-148/58-90 98-98 GENERAL: lethargic, purposeful movement of right arm, left side weakness, left facial droop, unresponsive to verbal and tactile stimuli. HEAD: +left facial droop, left neglect, lethargic - not opening his eyes when asked LUNGS:left lung +fine crackles auscultated on entire left lung, right lung clear. HEART: atrial fibrillation on cardiac rehab nurse ABDOMEN: Soft, nontender, not distended, normoactive bowel sounds, no guarding, no rebound, no masses. No hepatomegaly or splenomegaly. UPPER EXTREMITIES: + bruit/thrill of left upper arm LOWER EXTREMITIES: 2+ pulses, warm, well-perfused. No calf tenderness. No peripheral edema. NEUROLOGICAL: lethargic, non verbal SKIN: + bruit and thrill of left upper arm, left lower forearm with +sutures Laboratory Results - last 24 hr 09/01/16 09/02/16 09/02/16 07:15 11:29 16:33 POC Glucometer 185 167 Hepatitis C Antibody <0.1 09/02/16 09/03/16 22:44 05:29 POC Glucometer 157 139 Hepatitis C Antibody Active Medications Generic Name Dose Route Start Last Admin Trade Name Freq PRN Reason Stop Dose Admin Acetaminophen 650 mg 09/02/16 02:51 09/02/16 03:00 Tylenol Suppository - UT 650 mg Q4H PRN Administration FEVER OR PAIN Pantoprazole Sodium 100 mls @ 200 mls/hr 09/02/16 10:00 09/02/16 09:58 Protonix 40mg Ivpb (Pre-Docked) IVPB 200 mls/hr DAILY [facility] Administration Ampicillin Sodium/Sulbactam 100 mls @ 200 mls/hr 09/02/16 19:30 09/02/16 22:08 Sodium 3 gm/ Sodium Chloride IVPB 200 mls/hr Q24H [facility] Administration Insulin Aspart 1 vial 09/03/16 11:00 Novolog Vial Sliding Scale - SQ ACHS [facility] Protocol Levetiracetam 500 mg 09/01/16 16:45 09/02/16 22:09 Keppra Injection - IVPB 500 mg BID [facility] Administration Metoprolol Tartrate 5 mg 09/03/16 10:00 Lopressor Injection - IVPB Q4H-IV [facility] ASSESSMENT/PLAN: Patient is a 81 year old male with a significant past medical history of ESRD with dialysis scheduled on [facility]. 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 His other medical history includes diabetes, hypertension, hyperlipidemia. He presented to the ED from home for AMS and left-sided weakness. I spoke to son at the bedside on admission and he states that his father is normally able to ambulate and care for himself . His last dialysis was the day prior to admission, without incident. Family reports that patient was in his usual state of health when he noted that his father became non verbal with left sided weakness. Family contacted EMS and patient was brought into the ER and a code Will was called. A swallow evaluation was performed on 08/31 at the bedside but patient was too lethargic to participate and required repeated verbal cues to swallow apple sauce. During swallow evaluation, patients eyes deviated to the right with left hemiplegia. He coughed when asked but cough was noted to be very weak. He is too high risk for aspiration at this time. Will keep him NPO, Clinimax now on hold as pt had aspiration event two nights ago. Imaging: Head CT 08/31/2016 - No evidence of acute ICH, edema or midline shift. EKG of 07/29/2016, atrial fib has replaced SR Will start on Lopressor IV while NPO for rate control Head CT 09/01/2016 - interval large acute right middle cerebral artery territorial infarct involving the right basal ganglia with mass effect effacing the cortical suci as well as mild effacement of the right lateral ventricle and very minimal shift towards the left. Note is made of a hyperdense right middle cerebral artery sign suggestive of thrombosis/occlusion. Correlation with MRI/ MRA of the brain is recommended. Head CT 09/02/2016 - In comparison to previous CT study 09/01, there is a small amount of petechial blood in association with a large acute right cerebral infarct involving the distribution of the middle cerebral artery. The degree of petechial blood appears mildly increased. No focal hematoma is noted. Infarct swelling appears unchanged. ID: Pulmonary Aspiration Pneumonia - rule out - acute Assessment/Plan: Possible aspiration pneumonia Chest Xray 09/02 shows clear right lung field, left lung with opacity on left lower lobe, some LLL congestion auscultated and now with fine crackles of the left lung patient has remained NPO but may be aspirating his secretion Fever of 100.8 overnight, and WBC trended up 10>13.7, on 2L with sats in the high 90s Now on Unasyn renally dosed Hold Clinimax until clinically improved Blood cultures ngtd Neurology: CVA/TIA - left sided facial droop, left neglect, left sided weakness, with worsening mental status Assessment/Plan: On admission, not candidate for thrombolysis as patient was outside therapeutic window on arrival to ED Hold anticoags for now, as per neurosurgeon, Heparin and ASA stopped secondary petechial blood on Head CT and risk of hemorrhagic transformation Will start on a Statin once able to swallow Carotid doppler ordered and reviewed Brain MRI cancelled by neuro Neuro checks q 4 Seizure precautions - started on IV Keppra 500mg BID started 09/01 Followed by neurology and neurosurgery As per neurosurgery, patient is not a surgical candidate Metabolic Encephalopathy - acute Assessment/Plan: In the setting of large right acute ischemic CVA, ESRD, DM and new onset atrial fib Monitor mental status which seems to be worsening since admission Neuro and neurosurgery following Will conduct daily head CTs to monitor acute CVA Will continue to treat with Unasyn to cover any aspiration pna Monitor electrolytes, dialysis MWF Neuro checks q4 Endocrine: Diabetes Mellitus Assessment/Plan: On Glipizide @ home, will put on Novolog sliding scale Monitor capillary glucose, HgbA1c 8.7 Renal: End Stage Renal Disease Assessment/Plan: Next dialysis Sunday (MW schedule), renal following Monitor Bun/Creat. Cardiology Atrial Fibrillation -new diagnosis/new onset Afib Assessment/Plan: EKG 08/31/2016 show atrial fib @ 68, when compared to EKG of 07/29/2016, atrial fib has replaced SR Will start on Lopressor IV while NPO for rate control No anticoags for now, as per neurosurgeon, Heparin and ASA stopped secondary petechial blood on Head CT and risk of hemorrhagic transformation F.E.N. Fluids: no IVF, on dialysis, anuria Electrolytes: monitor BMP Nutrition: NPO: failed bedside swallow evaluation, may be aspirating, no IVF Prophylaxis: DVT: SCDs only, heparin and ASA contraindicated GI: Protonix IVPB Disposition: Requires inpatient hospitalization for his acute/emergent condition. Awaiting ICU transfer. Full Code. Visit type - Emergency Visit Emergency Visit: Yes ED Registration Date: 08/31/16 Care time: The patient presented to the Emergency Department on the above date and was hospitalized for further evaluation of their emergent condition. - New Patient This patient is new to me today: Yes Date on this admission: 09/03/16 - Critical Care Critical Care patient: Yes Total Critical Care Time (in minutes): 45 Critical Care Statement: The care of this patient involved high complexity decision making to prevent further life threatening deterioration of the patient 's condition and/or to evalute & treat vital organ system(s) failure or risk of failure.
[2016-09-03 08:51] LABS: BILIRUBIN,TOTAL 0.9 mg/dL (0.2-1.0); CALCIUM 8.8 mg/dL (8.5-10.1); COCKROFT - GAULT 6.75
[2016-09-03 08:57] LABS: TOT PROT 7.1 g/dl (6.4-8.2)
[2016-09-03 09:00] LABS: CREATININE 8.5 mg/dL (0.7-1.3)
--- NOTE | 2016-09-03 09:07 | PN ---
Progress Note, Physician Chief Complaint: Events noted Poorly responsive History of Present Illness: Patient was seen and examined. Poorly responsive. Chart was reviewed Family by bedside and discussed current status Monitor reveals atrial fibrillation with variable ventricular response. Family is contemplating to sign DNR/DNI - Current Medication List Current Medications: Active Medications Acetaminophen (Tylenol Suppository -) 650 mg ND Q4H PRN PRN Reason: FEVER OR PAIN Last Admin: 09/02/16 03:00 Dose: 650 mg Pantoprazole Sodium (Protonix 40mg Ivpb (Pre-Docked)) 100 mls @ 200 mls/hr IVPB DAILY [facility] Last Admin: 09/02/16 09:58 Dose: 200 mls/hr Ampicillin Sodium/Sulbactam (Sodium 3 gm/ Sodium Chloride) 100 mls @ 200 mls/ hr IVPB Q24H [facility] Last Admin: 09/02/16 22:08 Dose: 200 mls/hr Insulin Aspart (Novolog Vial Sliding Scale -) 1 vial SQ ACHS [facility]IO PRN Reason: Protocol Levetiracetam (Keppra Injection -) 500 mg IVPB BID [facility]IO Last Admin: 09/02/16 22:09 Dose: 500 mg Metoprolol Tartrate (Lopressor Injection -) 5 mg IVPB Q4H-IV TULIO - Objective Vital Signs: Vital Signs Temperature 98.5 F 09/03/16 06:00 Pulse Rate 106 H 09/03/16 06:38 Respiratory Rate 18 09/03/16 06:00 Blood Pressure 135/83 09/03/16 06:38 O2 Sat by Pulse Oximetry (%) 98 09/02/16 20:21 Cardiovascular: Yes: Pulse Irregular, Murmur (2/6 SM), S1, S2 Respiratory: Yes: Diminished Gastrointestinal: Yes: Normal Bowel Sounds, Soft. No: Tenderness Edema: No Labs: CBC, BMP 09/03/16 05:35 09/03/16 05:35 INR, PTT INR 1.34 (0.82-1.09) H 08/31/16 02:40 Problem List - Problems (1) Atrial fibrillation Code(s): I48.91 - UNSPECIFIED ATRIAL FIBRILLATION Qualifiers: Atrial fibrillation type: persistent Qualified Code(s): I48.1 - Persistent atrial fibrillation (2) CVA (cerebral vascular accident) Code(s): I63.9 - CEREBRAL INFARCTION, UNSPECIFIED Qualifiers: CVA mechanism: embolism Precerebral and cerebral artery: middle cerebral artery Laterality of affected vessel: right Qualified Code(s ): I63.411 - Cerebral infarction due to embolism of right middle cerebral artery (3) ESRD (end stage renal disease) on dialysis Code(s): N18.6 - END STAGE RENAL DISEASE Z99.2 - DEPENDENCE ON RENAL DIALYSIS (4) Hyperlipidemia associated with type 2 diabetes mellitus Code(s): E11.69 - TYPE 2 DIABETES MELLITUS WITH OTHER SPECIFIED COMPLICATION E78.5 - HYPERLIPIDEMIA, UNSPECIFIED (5) Hypertensive cardiomyopathy Code(s): I11.9 - HYPERTENSIVE HEART DISEASE WITHOUT HEART FAILURE I43 - CARDIOMYOPATHY IN DISEASES CLASSIFIED ELSEWHERE Qualifiers: Heart failure presence: without heart failure Qualified Code(s): I11.9 - Hypertensive heart disease without heart failure; I43 - Cardiomyopathy in diseases classified elsewhere (6) Systolic dysfunction without heart failure Code(s): I51.9 - HEART DISEASE, UNSPECIFIED Assessment/Plan 1. Acute right MCA stroke 2. Persistent atrial fibrillation with variable ventricular response - new onset 3. LV systolic dysfunction - euvolemic 4. HTN/HCVD 5. Hyperlipidemia 6. Type 2 DM 7. ESRD on HD 8. Mitral valve and tricuspid valve disease PLAN: 1. Ideally needs to be on anticoagulation preferably Coumadin as patient is not a candidate for NOAC in view of ESRD, however; currently it has not been started in view of recent MCA stroke with risk of hemorrhagic conversion and underlying poor mental status and overall poor prognosis. Would continue supportive care. 2. Neuro input noted. Currently MRI of brain has been canceled for reason explained by Neurology 3. IV Lopressor 4. HD per renal 5. Palliative consultation Prognosis overall is poor Sean Clemons MD
--- NOTE | 2016-09-03 10:12 | PN ---
Progress Note (short form) - Note Progress Note: NEUROSURGERY According to family pt does not respond much to their voice either PE: Tmax 99.6, VSS FS 139-175 HEENT- NC/AT; Neck- supple; Cor- irreg; Lungs- CTA B; Abd- benign; Ext- L UE AVF ; swelling Obtunded; not following command CN- pupils 5 mm sluggish; Motor- R side localizing to pain UE > LE; Sensation- difficult to assess; DTR- hyporeflexia Head CT - mild atrophy, no bleed, no defined stroke F/u head CT- R MCA well-defined large ischemic stroke with mass effect on R lat ventricle; and mild shift Head CT (5-20) R MCA stroke with mild multifocal petechial hemorrhage within ischemic zone; moderate mass effect and stable 6 mm shift to L Head CT (5-21) Stable appearance as prior scan 5-20 WBC 13.7; Hgb 12.3 Large R MCA ischemic stroke with petechial hemorrhagic transformation, worsening mass effect to be expected before subsiding in the next day or two A-fib likely cause of R MCA embolic stroke and could cause further embolic episodes Prognosis poor given multiple medical issues FS and diabetes control Supportive care
[2016-09-03] MEDS: PANTOPRAZOLE SODIUM 100 ML IVPB SCH (10:16)
[2016-09-03] MEDS: levETIRAcetam 500 MG/5 ML INJECTION VIAL IVPB SCH ×2 (10:17→21:28)
[2016-09-03 11:17] LABS: INR 1.53 (0.82-1.09)
[2016-09-03 11:19] LABS: ACTIVATED PTT 26.7 SECONDS (26.9-34.4)
--- NOTE | 2016-09-03 15:47 | PN ---
Progress Note, Physician Chief Complaint: The patient is more arousable today. Responds minimally to verbal stimuli. No fever. No seizures. - Current Medication List Current Medications: Active Medications Acetaminophen (Tylenol Suppository -) 650 mg AK Q4H PRN PRN Reason: FEVER OR PAIN Last Admin: 09/02/16 03:00 Dose: 650 mg Pantoprazole Sodium (Protonix 40mg Ivpb (Pre-Docked)) 100 mls @ 200 mls/hr IVPB DAILY [facility] Last Admin: 09/03/16 10:16 Dose: 200 mls/hr Ampicillin Sodium/Sulbactam (Sodium 3 gm/ Sodium Chloride) 100 mls @ 200 mls/ hr IVPB Q24H [facility] Last Admin: 09/02/16 22:08 Dose: 200 mls/hr Insulin Aspart (Novolog Vial Sliding Scale -) 1 vial SQ ACHS [facility] PRN Reason: Protocol Last Admin: 09/03/16 11:33 Dose: Not Given Levetiracetam (Keppra Injection -) 500 mg IVPB BID [facility] Last Admin: 09/03/16 10:17 Dose: 500 mg Metoprolol Tartrate (Lopressor Injection -) 5 mg IVPB Q4H-IV [facility] Last Admin: 09/03/16 14:54 Dose: 5 mg - Objective Vital Signs: Vital Signs Temperature 98.8 F 09/03/16 14:48 Pulse Rate 97 H 09/03/16 14:54 Respiratory Rate 18 09/03/16 14:48 Blood Pressure 150/73 09/03/16 14:54 O2 Sat by Pulse Oximetry (%) 100 09/03/16 10:17 Constitutional: Yes: No Distress Neck: Yes: Trachea Midline Cardiovascular: Yes: S1, S2 Respiratory: Yes: Diminished, Poor Air Entry Gastrointestinal: Yes: Normal Bowel Sounds Extremities: Yes: Other (AVF on the left arm) Edema: Yes Edema: LLE: 1+, RLE: 1+ Labs: CBC, BMP 09/03/16 05:35 09/03/16 05:35 INR, PTT INR 1.53 (0.82-1.09) H 09/03/16 10:45 Problem List - Problems (1) Atrial fibrillation Code(s): I48.91 - UNSPECIFIED ATRIAL FIBRILLATION Qualifiers: Atrial fibrillation type: persistent Qualified Code(s): I48.1 - Persistent atrial fibrillation (2) CVA (cerebral vascular accident) Code(s): I63.9 - CEREBRAL INFARCTION, UNSPECIFIED Qualifiers: CVA mechanism: embolism Precerebral and cerebral artery: middle cerebral artery Laterality of affected vessel: right Qualified Code(s ): I63.411 - Cerebral infarction due to embolism of right middle cerebral artery (3) ESRD (end stage renal disease) on dialysis Code(s): N18.6 - END STAGE RENAL DISEASE Z99.2 - DEPENDENCE ON RENAL DIALYSIS (4) Hyperlipidemia associated with type 2 diabetes mellitus Code(s): E11.69 - TYPE 2 DIABETES MELLITUS WITH OTHER SPECIFIED COMPLICATION E78.5 - HYPERLIPIDEMIA, UNSPECIFIED (5) Aneurysm of arteriovenous dialysis fistula Code(s): T82.898A - [facility] COMPLICATION OF VASCULAR PROSTH DEV/GRFT, INIT Assessment/Plan 81 y/o male with ESRD, admitted with massive ischemic stroke. Minimal clinical improvent noted. No fever. No signs of any active infection. Next HD tomorrow. Cortney Link MD
[2016-09-03] MEDS: AMPICILLIN NA/SULBACTAM NA 3 GM in SODIUM CHLORIDE 100 ML IVPB SCH (20:26)
[2016-09-04] MEDS: METOPROLOL TARTRATE 5 MG/5 ML VIAL IVPB SCH ×7 (01:03→22:26)
[2016-09-04] MEDS: INSULIN SLIDING SCALE (NOVOLOG) 1 VIAL SQ SCH ×4 (06:30→22:27)
--- NOTE | 2016-09-04 08:19 | PN ---
Physical Exam: SUBJECTIVE: Patient seen and examined. Remains unresponsive, lethargic. Non purposeful movement of right arm, left arm flaccid, left sided weakness, left facial droop OBJECTIVE: Receiving dialysis, heart rate 120s since dialysis started Lopressor 5mg to be given now, as per cardiology Pupils equal and reactive to light No fevers overnight Patient is restless, non responsive Needs ICU transfer Repeat head CT ordered Family to decide of advance directives, palliative care consulted Jet Arechiga (son and HCP) cell # [phone] Vital Signs Period Temp Pulse Resp BP Sys/Avila Pulse Ox Last 24 Hr 97.4 F-98.9 F 61-119 18-18 135-150/68-97 100-100 GENERAL: lethargic, moving right arm, left side weakness, left facial droop, unresponsive to verbal and tactile stimuli. HEAD: +left facial droop, left neglect, lethargic - not opening his eyes when asked LUNGS:left lung +fine crackles auscultated on entire left lung, right lung clear. HEART: atrial fibrillation on quality assurance monitor body now in 120s while on dialysis, IV lopressor to be given early ABDOMEN: Soft, nontender, not distended, normoactive bowel sounds, no guarding, no rebound, no masses. No hepatomegaly or splenomegaly. UPPER EXTREMITIES: + bruit/thrill of left upper arm LOWER EXTREMITIES: 2+ pulses, warm, well-perfused. No calf tenderness. No peripheral edema. NEUROLOGICAL: lethargic, non verbal SKIN: + bruit and thrill of left upper arm, left lower forearm with +sutures Laboratory Results - last 24 hr 09/03/16 09/03/16 09/03/16 05:35 05:35 10:45 WBC 13.7 H RBC 3.94 L Hgb 12.3 Hct 37.3 MCV 94.7 MCHC 33.0 RDW 14.4 Plt Count 192 MPV 9.9 Neutrophils % 76.9 Lymphocytes % 8.0 Monocytes % 14.0 H Eosinophils % 0.8 Basophils % 0.3 INR 1.53 H PTT (Actin FS) 26.7 L Sodium 141 Potassium 5.3 H Chloride 102 Carbon Dioxide 28 Anion Gap 11 BUN 87 H D Creatinine 8.5 H* D Creat Clearance w eGFR 6.02 POC Glucometer Random Glucose 145 H Calcium 8.8 Total Bilirubin 0.9 D AST 40 H D ALT 25 D Alkaline Phosphatase 115 Total Protein 7.1 Albumin 3.0 L 09/03/16 09/03/16 09/03/16 11:31 16:36 21:34 WBC RBC Hgb Hct MCV MCHC RDW Plt Count MPV Neutrophils % Lymphocytes % Monocytes % Eosinophils % Basophils % INR PTT (Actin FS) Sodium Potassium Chloride Carbon Dioxide Anion Gap BUN Creatinine Creat Clearance w eGFR POC Glucometer 163 131 146 Random Glucose Calcium Total Bilirubin AST ALT Alkaline Phosphatase Total Protein Albumin 09/04/16 05:13 WBC RBC Hgb Hct MCV MCHC RDW Plt Count MPV Neutrophils % Lymphocytes % Monocytes % Eosinophils % Basophils % INR PTT (Actin FS) Sodium Potassium Chloride Carbon Dioxide Anion Gap BUN Creatinine Creat Clearance w eGFR POC Glucometer 167 Random Glucose Calcium Total Bilirubin AST ALT Alkaline Phosphatase Total Protein Albumin Active Medications Generic Name Dose Route Start Last Admin Trade Name Freq PRN Reason Stop Dose Admin Acetaminophen 650 mg 09/02/16 02:51 09/02/16 03:00 Tylenol Suppository - NC 650 mg Q4H PRN Administration FEVER OR PAIN Pantoprazole Sodium 100 mls @ 200 mls/hr 09/02/16 10:00 09/03/16 10:16 Protonix 40mg Ivpb (Pre-Docked) IVPB 200 mls/hr DAILY [facility] Administration Ampicillin Sodium/Sulbactam 100 mls @ 200 mls/hr 09/02/16 19:30 09/03/16 20:26 Sodium 3 gm/ Sodium Chloride IVPB 200 mls/hr Q24H [facility] Administration Insulin Aspart 1 vial 09/03/16 11:00 09/04/16 06:30 Novolog Vial Sliding Scale - SQ 2 units ACHS [facility] Administration Protocol Levetiracetam 500 mg 09/01/16 16:45 09/03/16 21:28 Keppra Injection - IVPB 500 mg BID [facility] Administration Metoprolol Tartrate 5 mg 09/03/16 10:00 09/04/16 06:29 Lopressor Injection - IVPB 5 mg Q4H-IV [facility] Administration ASSESSMENT/PLAN: Patient is a 81 year old male with a significant past medical history of ESRD with dialysis scheduled on MWF. 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 His other medical history includes diabetes, hypertension, hyperlipidemia. He presented to the ED from home for AMS and left-sided weakness. His last dialysis was the day prior to admission, without incident. Family reports that patient was in his usual state of health when he noted that his father became non verbal with left sided weakness. Family contacted EMS and patient was brought into the ER and a code Will was called. Since admission, he as failed a swallow evaluation secondary to lethargy. Imaging: Head CT 08/31/2016 - No evidence of acute ICH, edema or midline shift. EKG of 07/29/2016, atrial fib has replaced SR Will start on Lopressor IV while NPO for rate control Head CT 09/01/2016 - interval large acute right middle cerebral artery territorial infarct involving the right basal ganglia with mass effect effacing the cortical suci as well as mild effacement of the right lateral ventricle and very minimal shift towards the left. Note is made of a hyperdense right middle cerebral artery sign suggestive of thrombosis/occlusion. Correlation with MRI/ MRA of the brain is recommended. Head CT 09/02/2016 - In comparison to previous CT study 09/01, there is a small amount of petechial blood in association with a large acute right cerebral infarct involving the distribution of the middle cerebral artery. The degree of petechial blood appears mildly increased. No focal hematoma is noted. Infarct swelling appears unchanged. Head CT 09/03/2016 - again shows small amount of petecial blood scattered around acute infarct Neurology: CVA - Large acute right cerebral infarct involving the distribution of the middle cerebral artery -acute Assessment/Plan: left sided facial droop, left neglect, left sided weakness, with worsening mental status On admission, not candidate for tpa as patient was outside therapeutic window on arrival to ED Hold ALL anticoags for now, as per neurosurgeon, Heparin and ASA stopped secondary petechial blood on Head CT and risk of hemorrhagic transformation Will start on a Statin once able to swallow Carotid doppler ordered and reviewed Brain MRI cancelled by neuro Neuro checks q 4 Seizure precautions - started on IV Keppra 500mg BID started 09/[address] Followed by neurology and neurosurgery As per neurosurgery, patient is not a surgical candidate Metabolic Encephalopathy - acute Assessment/Plan: In the setting of large right acute ischemic CVA, ESRD, DM and new onset atrial fib Monitor mental status which seems to be worsening since admission Neuro and neurosurgery following Will conduct daily head CTs to monitor acute CVA Will continue to treat with Unasyn to cover any aspiration pna Monitor electrolytes, dialysis MWF Neuro checks q4 Cardiology: Atrial Fibrillation -new diagnosis/new onset Afib Assessment/Plan: EKG 08/31/2016 show atrial fib @ 68, when compared to EKG of 07/29/2016, atrial fib has replaced SR Will start on Lopressor IV while NPO for rate control No anticoags for now, as per neurosurgeon, Heparin and ASA NC stopped secondary petechial blood on Head CT and risk of hemorrhagic transformation heart rate 120s during dialysis, given IV lopressor ID: Pulmonary Aspiration Pneumonia - rule out - acute Assessment/Plan: Possible aspiration pneumonia Chest Xray 09/02 shows clear right lung field, left lung with opacity on left lower lobe, some LLL congestion auscultated and now with fine crackles of the left lung patient has remained NPO but may be aspirating his secretion Afebrile overnight, WBC trending up, on 2L with sats in the high 90s Now on Unasyn renally dosed Hold Clinimax until clinically improved Blood cultures ngtd Endocrine: Diabetes Mellitus Assessment/Plan: On Glipizide @ home, now on Novolog sliding scale Monitor capillary glucose, HgbA1c 8.7 bgms q6 while NPO Renal: End Stage Renal Disease Assessment/Plan: getting dialysis today (MWF) Monitor Bun/Creat. Renal following F.E.N. Fluids: no IVF, on dialysis, anuria Electrolytes: monitor BMP Nutrition: NPO: failed bedside swallow evaluation, may be aspirating, no IVF, no Clinimax Prophylaxis: DVT: SCDs only, heparin and ASA contraindicated as per neuro GI: Protonix IVPB Disposition: Awaiting ICU transfer. Full Code. Visit type - Emergency Visit Emergency Visit: Yes ED Registration Date: 08/31/16 Care time: The patient presented to the Emergency Department on the above date and was hospitalized for further evaluation of their emergent condition. - New Patient This patient is new to me today: No - Critical Care Critical Care patient: Yes Total Critical Care Time (in minutes): 45 Critical Care Statement: The care of this patient involved high complexity decision making to prevent further life threatening deterioration of the patient 's condition and/or to evalute & treat vital organ system(s) failure or risk of failure. - Discharge Referral Referred to [facility] No
[2016-09-04 08:54] LABS: BASOPHIL 0.3 % (0-2.0); MCH 30.9 pg (25.7-33.7); MCHC 32.6 g/dl (32.0-35.9); MEAN CELL VOLUME 94.7 fl (80-96); MEAN PLT VOLUME 9.6 fl (7.5-11.1); NEUTROPHILS 81.8 % (42.8-82.8); PLATELET COUNT 216 K/MM3 (134-434); RDW 14.7 % (11.9-15.9)
[2016-09-04 09:28] LABS: ALBUMIN 2.8 g/dl (3.4-5.0); BILIRUBIN,TOTAL 0.6 mg/dL (0.2-1.0); CALCIUM 8.4 mg/dL (8.5-10.1); MAGNESIUM 2.7 mg/dL (1.8-2.4); TOT PROT 6.9 g/dl (6.4-8.2)
[2016-09-04 09:33] LABS: COCKROFT - GAULT 5.53
--- NOTE | 2016-09-04 09:44 | PN ---
Progress Note (short form) - Note Progress Note: NEUROSURGERY In bed PE: Tmax 98.9, VSS Undergoing HD HEENT- NC/AT; Neck- supple; Cor- irreg; Lungs- CTA B; Abd- benign; Ext- L UE AVF ; swelling Obtunded; not following command CN- pupils 5 mm sluggish; Motor- R side localizing to pain UE only; Sensation- difficult to assess; DTR- hyporeflexia Head CT - mild atrophy, no bleed, no defined stroke F/u head CT- R MCA well-defined large ischemic stroke with mass effect on R lat ventricle; and mild shift Head CT (-20) R MCA stroke with mild multifocal petechial hemorrhage within ischemic zone; moderate mass effect and stable 6 mm shift to L Head CT (-21) Stable appearance as prior scan 5-20 Large R MCA ischemic stroke with petechial hemorrhagic transformation, worsening mass effect initially to be expected before subsiding in the next day or two A-fib likely cause of R MCA embolic stroke and could cause further embolic episodes Prognosis poor given large R MCA stroke and multiple medical issues Supportive care
[2016-09-04 10:04] LABS: PHOSPHOROUS 8.1 mg/dL (2.5-4.9)
--- NOTE | 2016-09-04 10:39 | PN ---
Progress Note, Physician Chief Complaint: Events noted Poorly responsive History of Present Illness: Patient was seen and examined. Poorly responsive. Chart was reviewed Monitor reveals atrial fibrillation with rapid ventricular response. He is being dialyzed this am Lopressor IV was given, but still tachycardic - Current Medication List Current Medications: Active Medications Acetaminophen (Tylenol Suppository -) 650 mg [place] Q4H PRN PRN Reason: FEVER OR PAIN Last Admin: 09/02/16 03:00 Dose: 650 mg Pantoprazole Sodium (Protonix 40mg Ivpb (Pre-Docked)) 100 mls @ 200 mls/hr IVPB DAILY [facility] Last Admin: 09/03/16 10:16 Dose: 200 mls/hr Ampicillin Sodium/Sulbactam (Sodium 3 gm/ Sodium Chloride) 100 mls @ 200 mls/ hr IVPB Q24H [facility] Last Admin: 09/03/16 20:26 Dose: 200 mls/hr Insulin Aspart (Novolog Vial Sliding Scale -) 1 vial SQ ACHS [facility] PRN Reason: Protocol Last Admin: 09/04/16 06:30 Dose: 2 units Levetiracetam (Keppra Injection -) 500 mg IVPB BID [facility] Last Admin: 09/03/16 21:28 Dose: 500 mg Metoprolol Tartrate (Lopressor Injection -) 5 mg IVPB Q4H-IV [facility] Last Admin: 09/04/16 08:23 Dose: 5 mg - Objective Vital Signs: Vital Signs Temperature 98.8 F 09/04/16 06:55 Pulse Rate 95 H 09/04/16 10:00 Respiratory Rate 18 09/04/16 10:00 Blood Pressure 138/82 09/04/16 10:00 O2 Sat by Pulse Oximetry (%) 100 09/03/16 21:00 Neck: Yes: Supple Cardiovascular: Yes: Pulse Irregular, Murmur (Soft SM), S1, S2 Respiratory: Yes: Diminished Gastrointestinal: Yes: Normal Bowel Sounds, Soft. No: Tenderness Edema: No Labs: CBC, BMP 09/04/16 07:00 09/04/16 07:00 INR, PTT INR 1.53 (0.82-1.09) H 09/03/16 10:45 Problem List - Problems (1) Atrial fibrillation Code(s): I48.91 - UNSPECIFIED ATRIAL FIBRILLATION Qualifiers: Atrial fibrillation type: persistent Qualified Code(s): I48.1 - Persistent atrial fibrillation (2) CVA (cerebral vascular accident) Code(s): I63.9 - CEREBRAL INFARCTION, UNSPECIFIED Qualifiers: CVA mechanism: embolism Precerebral and cerebral artery: middle cerebral artery Laterality of affected vessel: right Qualified Code(s ): I63.411 - Cerebral infarction due to embolism of right middle cerebral artery (3) ESRD (end stage renal disease) on dialysis Code(s): N18.6 - END STAGE RENAL DISEASE Z99.2 - DEPENDENCE ON RENAL DIALYSIS (4) Hyperlipidemia associated with type 2 diabetes mellitus Code(s): E11.69 - TYPE 2 DIABETES MELLITUS WITH OTHER SPECIFIED COMPLICATION E78.5 - HYPERLIPIDEMIA, UNSPECIFIED (5) Hypertensive cardiomyopathy Code(s): I11.9 - HYPERTENSIVE HEART DISEASE WITHOUT HEART FAILURE I43 - CARDIOMYOPATHY IN DISEASES CLASSIFIED ELSEWHERE Qualifiers: Heart failure presence: without heart failure Qualified Code(s): I11.9 - Hypertensive heart disease without heart failure; I43 - Cardiomyopathy in diseases classified elsewhere (6) Systolic dysfunction without heart failure Code(s): I51.9 - HEART DISEASE, UNSPECIFIED Assessment/Plan 1. Acute right MCA stroke 2. Persistent atrial fibrillation with rapid ventricular response - persistent 3. LV systolic dysfunction 4. HTN/HCVD 5. Hyperlipidemia 6. Type 2 DM 7. ESRD on HD 8. Mitral valve and tricuspid valve disease PLAN: 1. Ideally needs to be on anticoagulation preferably Coumadin as patient is not a candidate for NOAC in view of ESRD, however; currently it has not been started in view of recent MCA stroke with risk of hemorrhagic conversion and underlying poor mental status and overall poor prognosis. Would continue supportive care. 2. Neurosurgery input noted. MRI of brain has been canceled for reason explained by Neurology 3. IV Lopressor given - may try Cardizem IV 1 dose for rate control, but would not use in addition for its negative inotropic features. 4. HD per renal 5. Palliative consultation Prognosis overall is poor Sean Clemons MD
[2016-09-04 10:42] LABS: CREATININE 10.5 mg/dL (0.7-1.3)
[2016-09-04] MEDS: levETIRAcetam 500 MG/5 ML INJECTION VIAL IVPB SCH ×2 (10:58→22:27)
[2016-09-04] MEDS: PANTOPRAZOLE SODIUM 100 ML IVPB SCH (10:59)
--- NOTE | 2016-09-04 11:24 | PN ---
Progress Note, SCRAPER OPERATOR - Note Progress Note: Lethargic. Moving right UE with no purposeful mobvement. Not following commands. Eyes closed. Hd with HOB elevated at this time. Educated family and speaking to pt in short, simple supportive sentences. Large MCA infarct. Prognosis for funcxtional recovery is quite guarded.
--- NOTE | 2016-09-04 12:57 | PN ---
Progress Note (short form) - Note Progress Note: 81 Year old male history of ESRD on HD and DM, HTN and dyslipidemia.. He has left sided hemiparesis on night of sunday (august 30) and was brought to hospital and found to have left sided hemparsis, facial droop and initial ct scan is normal. He is also found to have new onset atrial fibrillation He has last ct scan done on september 02, showed petechial hemorrhage and edema PMH as above FH,ROS,Medicaiton reviwed in chart Neurological Examiantion He is not responding to verbal stimuli and withdrawing to pain and not moving left side left sided facial palsy, bilateral pupils are small and sluggishly reactive eye are conjugate deviated to right , and there is dense left sided hemiparesis CT reviewed again Assessment- large right mca stroke, with mild midline shift and petechia hemorrhage overall prognosis was discussed with family hold aspirin neurosurgery consult appreciated continue supportive care adn prognosis is gurded Thanks for consult Rober Guy MD
--- NOTE | 2016-09-04 13:21 | PN ---
Progress Note, Physician Chief Complaint: No significant changes from yesterday. Vital signs stable. Had uneventful HD earlier. No purposeful movement noted. - Current Medication List Current Medications: Active Medications Acetaminophen (Tylenol Suppository -) 650 mg RI Q4H PRN PRN Reason: FEVER OR PAIN Last Admin: 09/02/16 03:00 Dose: 650 mg Pantoprazole Sodium (Protonix 40mg Ivpb (Pre-Docked)) 100 mls @ 200 mls/hr IVPB DAILY [facility] Last Admin: 09/04/16 10:59 Dose: 200 mls/hr Ampicillin Sodium/Sulbactam (Sodium 3 gm/ Sodium Chloride) 100 mls @ 200 mls/ hr IVPB Q24H [facility] Last Admin: 09/03/16 20:26 Dose: 200 mls/hr Insulin Aspart (Novolog Vial Sliding Scale -) 1 vial SQ ACHS [facility] PRN Reason: Protocol Last Admin: 09/04/16 13:00 Dose: Not Given Levetiracetam (Keppra Injection -) 500 mg IVPB BID [facility] Last Admin: 09/04/16 10:58 Dose: 500 mg Metoprolol Tartrate (Lopressor Injection -) 5 mg IVPB Q4H-IV [facility] Last Admin: 09/04/16 12:59 Dose: 5 mg - Objective Vital Signs: Vital Signs Temperature 98.8 F 09/04/16 06:55 Pulse Rate 122 H 09/04/16 12:59 Respiratory Rate 18 09/04/16 10:35 Blood Pressure 135/68 09/04/16 12:59 O2 Sat by Pulse Oximetry (%) 100 09/04/16 09:00 Constitutional: Yes: Mild Distress Cardiovascular: Yes: Pulse Irregular, S1, S2 Respiratory: Yes: Regular, Diminished Gastrointestinal: Yes: Soft, Hypoactive Bowel Sounds Edema: No Labs: CBC, BMP 09/04/16 07:00 09/04/16 07:00 INR, PTT INR 1.53 (0.82-1.09) H 09/03/16 10:45 Problem List - Problems (1) Atrial fibrillation Code(s): I48.91 - UNSPECIFIED ATRIAL FIBRILLATION Qualifiers: Atrial fibrillation type: persistent Qualified Code(s): I48.1 - Persistent atrial fibrillation (2) CVA (cerebral vascular accident) Code(s): I63.9 - CEREBRAL INFARCTION, UNSPECIFIED Qualifiers: CVA mechanism: embolism Precerebral and cerebral artery: middle cerebral artery Laterality of affected vessel: right Qualified Code(s ): I63.411 - Cerebral infarction due to embolism of right middle cerebral artery (3) ESRD (end stage renal disease) on dialysis Code(s): N18.6 - END STAGE RENAL DISEASE Z99.2 - DEPENDENCE ON RENAL DIALYSIS (4) Hyperlipidemia associated with type 2 diabetes mellitus Code(s): E11.69 - TYPE 2 DIABETES MELLITUS WITH OTHER SPECIFIED COMPLICATION E78.5 - HYPERLIPIDEMIA, UNSPECIFIED (5) Aneurysm of arteriovenous dialysis fistula Code(s): T82.898A - [facility] COMPLICATION OF VASCULAR PROSTH DEV/GRFT, INIT Assessment/Plan 81 y/o male with ESRD, admitted with massive ischemic stroke. No significant improvement past 24 hours. HD earlier. Discussed in detail with the family about future interventions. Seen by Karin Valenzuela. Evaluation in progress. ? G-tube for feeding. Cortney Link MD
--- NOTE | 2016-09-04 17:23 | PN ---
Progress Note, Physician History of Present Illness: continues to be critical family plans at the moment to continue everything patient to get dialyzed still stable with obtunded and restless movement - Current Medication List Current Medications: Active Medications Acetaminophen (Tylenol Suppository -) 650 mg [place] Q4H PRN PRN Reason: FEVER OR PAIN Last Admin: 09/02/16 03:00 Dose: 650 mg Pantoprazole Sodium (Protonix 40mg Ivpb (Pre-Docked)) 100 mls @ 200 mls/hr IVPB DAILY [facility] Last Admin: 09/04/16 10:59 Dose: 200 mls/hr Ampicillin Sodium/Sulbactam (Sodium 3 gm/ Sodium Chloride) 100 mls @ 200 mls/ hr IVPB Q24H [facility] Last Admin: 09/03/16 20:26 Dose: 200 mls/hr Insulin Aspart (Novolog Vial Sliding Scale -) 1 vial SQ ACHS [facility] PRN Reason: Protocol Last Admin: 09/04/16 16:36 Dose: Not Given Levetiracetam (Keppra Injection -) 500 mg IVPB BID [facility] Last Admin: 09/04/16 10:58 Dose: 500 mg Metoprolol Tartrate (Lopressor Injection -) 5 mg IVPB Q4H-IV [facility] Last Admin: 09/04/16 16:57 Dose: 5 mg - Objective Vital Signs: Vital Signs Temperature 98 F 09/04/16 14:10 Pulse Rate 115 H 09/04/16 16:57 Respiratory Rate 18 09/04/16 14:10 Blood Pressure 136/86 09/04/16 16:57 O2 Sat by Pulse Oximetry (%) 100 09/04/16 09:00 Constitutional: Yes: Other Cardiovascular: Yes: Pulse Irregular, Murmur Respiratory: Yes: Regular, Other Gastrointestinal: Yes: Normal Bowel Sounds, Soft Musculoskeletal: Yes: WNL Extremities: Yes: WNL Neurological: Yes: Other (obtunded) Labs: CBC, BMP 09/04/16 07:00 09/04/16 07:00 INR, PTT INR 1.53 (0.82-1.09) H 09/03/16 10:45 Assessment/Plan - Problems (1) CVA (cerebral vascular accident) Code(s): I63.9 - CEREBRAL INFARCTION, UNSPECIFIED Qualifiers: CVA mechanism: embolism Precerebral and cerebral artery: middle cerebral artery Laterality of affected vessel: right Qualified Code(s ): I63.411 - Cerebral infarction due to embolism of right middle cerebral artery (2) ESRD (end stage renal disease) on dialysis Code(s): N18.6 - END STAGE RENAL DISEASE Z99.2 - DEPENDENCE ON RENAL DIALYSIS (3) Systolic dysfunction without heart failure Code(s): I51.9 - HEART DISEASE, UNSPECIFIED (4) Hyperlipidemia associated with type 2 diabetes mellitus Code(s): E11.69 - TYPE 2 DIABETES MELLITUS WITH OTHER SPECIFIED COMPLICATION E78.5 - HYPERLIPIDEMIA, UNSPECIFIED (5) Hypertensive cardiomyopathy Code(s): I11.9 - HYPERTENSIVE HEART DISEASE WITHOUT HEART FAILURE I43 - CARDIOMYOPATHY IN DISEASES CLASSIFIED ELSEWHERE Qualifiers: Heart failure presence: without heart failure Qualified Code(s): I11.9 - Hypertensive heart disease without heart failure; I43 - Cardiomyopathy in diseases classified elsewhere 6 aspiration pna plan continue abx rest continue per other physcians again discussion with the family at the moment we will continue all current mgmt
[2016-09-04] MEDS ORDERED: dilTIAZem HCL 50 MG/10 ML - 10 ML VIAL IVPUSH ONE (17:30)
[2016-09-04] MEDS: AMPICILLIN NA/SULBACTAM NA 3 GM in SODIUM CHLORIDE 100 ML IVPB SCH (18:26)
[2016-09-04] MEDS ORDERED: METOPROLOL TARTRATE 5 MG/5 ML VIAL ONE (21:56)
[2016-09-05] MEDS: METOPROLOL TARTRATE 5 MG/5 ML VIAL IVPB SCH ×6 (02:05→22:12)
[2016-09-05] MEDS: INSULIN SLIDING SCALE (NOVOLOG) 1 VIAL SQ SCH ×4 (06:13→21:48)
[2016-09-05 07:53] LABS: BASOPHIL 0.4 % (0-2.0); EOSINOPHIL 1.2 % (0-4.5); MCH 31.3 pg (25.7-33.7); MCHC 33.3 g/dl (32.0-35.9); MEAN CELL VOLUME 94.1 fl (80-96); MEAN PLT VOLUME 9.3 fl (7.5-11.1); NEUTROPHILS 77.7 % (42.8-82.8); PLATELET COUNT 222 K/MM3 (134-434); RDW 14.3 % (11.9-15.9); WHITE BLOOD COUNT 10.6 K/mm3 (4.0-10.0)
--- NOTE | 2016-09-05 08:09 | PN ---
Progress Note (short form) - Note Progress Note: NEUROSURGERY In bed PE: Tmax 98.9, VSS HEENT- NC/AT; Neck- supple; Cor- irreg; Lungs- CTA B; Abd- benign; Ext- L UE AVF ; swelling L arm Still not following command, but appears more active CN- pupils 5 mm sluggish; L facial droop slightly less marked; Motor- R side localizing to pain UE; + purposeful movement; Sensation- difficult to assess; DTR- hyporeflexia Head CT (5-21) Stable appearance as prior scan 5-20 Large R MCA ischemic stroke with petechial hemorrhagic transformation, more movement on R today Prognosis poor given large R MCA stroke and multiple medical issues Care d/w ICU team yesterday Renal f/u & HD Supportive care
[2016-09-05 08:35] LABS: ALBUMIN 2.8 g/dl (3.4-5.0); CALCIUM 8.5 mg/dL (8.5-10.1); COCKROFT - GAULT 8.41; CREATININE 6.9 mg/dL (0.7-1.3); TOT PROT 7.3 g/dl (6.4-8.2)
[2016-09-05] MEDS: levETIRAcetam 500 MG/5 ML INJECTION VIAL IVPB SCH ×2 (09:42→22:12)
[2016-09-05] MEDS: PANTOPRAZOLE SODIUM 100 ML IVPB SCH (09:42)
--- NOTE | 2016-09-05 10:13 | PN ---
Progress Note, Physician History of Present Illness: continues to be critical family plans at the moment to continue everything patient dialyzed tolerated it - Current Medication List Current Medications: Active Medications Acetaminophen (Tylenol Suppository -) 650 mg SC Q4H PRN PRN Reason: FEVER OR PAIN Last Admin: 09/02/16 03:00 Dose: 650 mg Pantoprazole Sodium (Protonix 40mg Ivpb (Pre-Docked)) 100 mls @ 200 mls/hr IVPB DAILY [facility] Last Admin: 09/05/16 09:42 Dose: 200 mls/hr Ampicillin Sodium/Sulbactam (Sodium 3 gm/ Sodium Chloride) 100 mls @ 200 mls/ hr IVPB Q24H [facility] Last Admin: 09/04/16 18:26 Dose: 200 mls/hr Insulin Aspart (Novolog Vial Sliding Scale -) 1 vial SQ ACHS [facility] PRN Reason: Protocol Last Admin: 09/05/16 06:13 Dose: Not Given Levetiracetam (Keppra Injection -) 500 mg IVPB BID [facility] Last Admin: 09/05/16 09:42 Dose: 500 mg Metoprolol Tartrate (Lopressor Injection -) 5 mg IVPB Q4H-IV [facility] Last Admin: 09/05/16 09:41 Dose: 5 mg - Objective Vital Signs: Vital Signs Temperature 98.2 F 09/05/16 08:00 Pulse Rate 121 H 09/05/16 09:41 Respiratory Rate 20 09/05/16 08:00 Blood Pressure 143/83 09/05/16 09:41 O2 Sat by Pulse Oximetry (%) 100 09/04/16 21:00 Constitutional: Yes: Other Cardiovascular: Yes: Pulse Irregular, Murmur Respiratory: Yes: Regular Gastrointestinal: Yes: Normal Bowel Sounds, Soft Musculoskeletal: Yes: WNL Extremities: Yes: WNL Neurological: Yes: Other (no change) Labs: CBC, BMP 09/05/16 05:40 09/05/16 05:40 INR, PTT INR 1.53 (0.82-1.09) H 09/03/16 10:45 Assessment/Plan - Problems (1) CVA (cerebral vascular accident) Code(s): I63.9 - CEREBRAL INFARCTION, UNSPECIFIED Qualifiers: CVA mechanism: embolism Precerebral and cerebral artery: middle cerebral artery Laterality of affected vessel: right Qualified Code(s ): I63.411 - Cerebral infarction due to embolism of right middle cerebral artery (2) ESRD (end stage renal disease) on dialysis Code(s): N18.6 - END STAGE RENAL DISEASE Z99.2 - DEPENDENCE ON RENAL DIALYSIS (3) Systolic dysfunction without heart failure Code(s): I51.9 - HEART DISEASE, UNSPECIFIED (4) Hyperlipidemia associated with type 2 diabetes mellitus Code(s): E11.69 - TYPE 2 DIABETES MELLITUS WITH OTHER SPECIFIED COMPLICATION E78.5 - HYPERLIPIDEMIA, UNSPECIFIED (5) Hypertensive cardiomyopathy Code(s): I11.9 - HYPERTENSIVE HEART DISEASE WITHOUT HEART FAILURE I43 - CARDIOMYOPATHY IN DISEASES CLASSIFIED ELSEWHERE Qualifiers: Heart failure presence: without heart failure Qualified Code(s): I11.9 - Hypertensive heart disease without heart failure; I43 - Cardiomyopathy in diseases classified elsewhere 6 aspiration pna plan continue abx tolerated dialysis rest continue resp support nutrition discussion wiht family done prognosis does not look good
--- NOTE | 2016-09-05 11:18 | PN ---
Physical Exam: SUBJECTIVE: Patient seen and examined. Non purposeful movements of right arm, left sided weakness, left sided facial droop. Son Piero states he noted that is father's breathing became labored overnight Patient is a DNR/DNI, order to follow once form fully executed OBJECTIVE: 10.a.m. Attended family meeting today facilitated by palliative care. Attendees included patients , daughters, sons and other family members, palliative care team, Dr. Foote, Dr. Mann Escalona and manual writer. Goals of meeting was to discuss goals of care, prognosis and further medical interventions (peg tube, dialysis, hydration) After meeting, family decided to sign DNR/DNI form Family will then meet amongst themselves and further decided on goals of care: hospice vs nursing facility vs. [facility] [facility] vs. stopping dialysis. On exam: Remains unresponsive, lethargic, breathing non labored, on 2 liters of nasal cannula, no apnea noted on exam Non purposeful movement of right arm, left arm flaccid, left sided weakness, left facial droop Vital Signs Period Temp Pulse Resp BP Sys/Avila Pulse Ox Last 24 Hr 98 F-98.8 F 106-122 18-20 133-143/68-86 99-100 GENERAL: lethargic, moving right arm, left side weakness, left facial droop, unresponsive to verbal and tactile stimuli. HEAD: +left facial droop, left neglect, lethargic - not opening his eyes when asked LUNGS:left lung +fine crackles auscultated on entire left lung, right lung clear. HEART: atrial fibrillation on data management specialist ABDOMEN: Soft, nontender, not distended, normoactive bowel sounds, no guarding, no rebound, no masses. No hepatomegaly or splenomegaly. UPPER EXTREMITIES: + bruit/thrill of left upper arm LOWER EXTREMITIES: 2+ pulses, warm, well-perfused. No calf tenderness. No peripheral edema. NEUROLOGICAL: lethargic, non verbal SKIN: + bruit and thrill of left upper arm, left lower forearm with +sutures Laboratory Results - last 24 hr 09/04/16 09/04/16 09/04/16 11:41 15:48 22:32 WBC RBC Hgb Hct MCV MCHC RDW Plt Count MPV Neutrophils % Lymphocytes % Monocytes % Eosinophils % Basophils % Sodium Potassium Chloride Carbon Dioxide Anion Gap BUN Creatinine Creat Clearance w eGFR POC Glucometer 172 161 169 Random Glucose Calcium Total Bilirubin AST ALT Alkaline Phosphatase Total Protein Albumin 09/05/16 09/05/16 09/05/16 05:40 05:40 06:12 WBC 10.6 H RBC 4.08 Hgb 12.8 D Hct 38.4 MCV 94.1 MCHC 33.3 RDW 14.3 Plt Count 222 MPV 9.3 Neutrophils % 77.7 Lymphocytes % 6.3 L Monocytes % 14.4 H Eosinophils % 1.2 Basophils % 0.4 Sodium 148 H Potassium 5.2 H Chloride 101 Carbon Dioxide 29 D Anion Gap 18 H BUN 65 H D Creatinine 6.9 H D Creat Clearance w eGFR 7.76 POC Glucometer 166 Random Glucose 185 H Calcium 8.5 Total Bilirubin 1.0 D AST 30 ALT 22 Alkaline Phosphatase 108 Total Protein 7.3 Albumin 2.8 L Active Medications Generic Name Dose Route Start Last Admin Trade Name Freq PRN Reason Stop Dose Admin Acetaminophen 650 mg 09/02/16 02:51 09/02/16 03:00 Tylenol Suppository - [place] 650 mg Q4H PRN Administration FEVER OR PAIN Pantoprazole Sodium 100 mls @ 200 mls/hr 09/02/16 10:00 09/05/16 09:42 Protonix 40mg Ivpb (Pre-Docked) IVPB 200 mls/hr DAILY [facility] Administration Ampicillin Sodium/Sulbactam 100 mls @ 200 mls/hr 09/02/16 19:30 09/04/16 18:26 Sodium 3 gm/ Sodium Chloride IVPB 200 mls/hr Q24H [facility] Administration Insulin Aspart 1 vial 09/03/16 11:00 09/05/16 06:13 Novolog Vial Sliding Scale - SQ Not Given ACHS [facility] Protocol Levetiracetam 500 mg 09/01/16 16:45 09/05/16 09:42 Keppra Injection - IVPB 500 mg BID [facility] Administration Metoprolol Tartrate 5 mg 09/03/16 10:00 09/05/16 09:41 Lopressor Injection - IVPB 5 mg Q4H-IV [facility] Administration ASSESSMENT/PLAN: Patient is a 81 year old male with a significant past medical history of ESRD with dialysis scheduled on MWF. 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 His other medical history includes diabetes, hypertension, hyperlipidemia. He presented to the ED from home for AMS and left-sided weakness. His last dialysis was the day prior to admission, without incident. Family reports that patient was in his usual state of health when he noted that his father became non verbal with left sided weakness. Family contacted EMS and patient was brought into the ER and a code Will was called. Since admission, he as failed a swallow evaluation secondary to lethargy. Imaging: Head CT 08/31/2016 - No evidence of acute ICH, edema or midline shift. EKG of 07/29/2016, atrial fib has replaced SR Will start on Lopressor IV while NPO for rate control Head CT 09/01/2016 - interval large acute right middle cerebral artery territorial infarct involving the right basal ganglia with mass effect effacing the cortical suci as well as mild effacement of the right lateral ventricle and very minimal shift towards the left. Note is made of a hyperdense right middle cerebral artery sign suggestive of thrombosis/occlusion. Correlation with MRI/ MRA of the brain is recommended. Head CT 09/02/2016 - In comparison to previous CT study 09/01, there is a small amount of petechial blood in association with a large acute right cerebral infarct involving the distribution of the middle cerebral artery. The degree of petechial blood appears mildly increased. No focal hematoma is noted. Infarct swelling appears unchanged. Head CT 09/03/2016 - again shows small amount of petecial blood scattered around acute infarct Neurology: CVA - Large acute right cerebral infarct involving the distribution of the middle cerebral artery -acute Assessment/Plan: Large acute right CVA in the setting of new onset atrial fibrillation, with history of HTN and ESRD left sided facial droop, left neglect, left sided weakness, with worsening mental status On admission, not candidate for tpa as patient was outside therapeutic window on arrival to ED Hold ALL anticoags for now, as per neurosurgeon, Heparin and ASA stopped secondary petechial blood on Head CT and risk of hemorrhagic transformation Carotid doppler ordered and reviewed Brain MRI cancelled by neuro Neuro checks q 4 Seizure precautions - started on IV Keppra 500mg BID started 09/01 Followed by neurology and neurosurgery As per neurosurgery, patient is not a surgical candidate Metabolic Encephalopathy - acute Assessment/Plan: In the setting of large right acute ischemic CVA, ESRD, DM and new onset atrial fib Monitor mental status which seems to be worsening Monitor electrolytes, dialysis MWF Neuro checks q4 Monitor mental status Cardiology: Atrial Fibrillation -new diagnosis/new onset Afib Assessment/Plan: EKG 08/31/2016 show atrial fib @ 68, when compared to EKG of 07/29/2016, atrial fib has replaced SR data management specialist shows atrial fib rate 100-120s, rate controlled with IV Lopressor q4 Anticoagulation contraindicated, as per neurosurgeon, Heparin and ASA OH stopped secondary petechial blood on Head CT and risk of hemorrhagic transformation ID: Pulmonary Aspiration Pneumonia - rule out - acute Assessment/Plan: Possible aspiration pneumonia Chest Xray 09/02 shows clear right lung field, left lung with opacity on left lower lobe, some LLL congestion auscultated and now with fine crackles of the left lung patient has remained NPO but may be aspirating his secretion Afebrile overnight, WBC trending down, on 2L with sats in the high 90s Now on Unasyn renally dosed Blood cultures ngtd Endocrine: Diabetes Mellitus Assessment/Plan: On Glipizide @ home, now on Novolog sliding scale Monitor capillary glucose, HgbA1c 8.7 bgms q6 while NPO Renal: End Stage Renal Disease Assessment/Plan: dialysis (MWF) Monitor Bun/Creat., next dialysis tomorrow Dr. Foote, Dr. Escalona following F.E.N. Fluids: no IVF, on dialysis, anuria Electrolytes: monitor BMP Nutrition: NPO: failed bedside swallow evaluation, may be aspirating, no IVF, no Clinimax Prophylaxis: DVT: SCDs only, heparin and ASA contraindicated as per neuro GI: Protonix IVPB Disposition: Family to further decide on further medical interventions, if any (continued dialysis, peg tube placement, or just comfort measures). They will be meeting today and will decide in the next few days the goals of care. They may consider home hospice, vs. retirement. Benefits and risks of peg tube (aspiration) discussed as well as stopping dialysis altogether discussed with family by renal. DNR/DNI Visit type - Emergency Visit Emergency Visit: Yes ED Registration Date: 08/31/16 Care time: The patient presented to the Emergency Department on the above date and was hospitalized for further evaluation of their emergent condition. - New Patient This patient is new to me today: No - Critical Care Critical Care patient: No - Discharge Referral Referred to [facility] No
--- NOTE | 2016-09-05 13:32 | PN ---
Progress Note, Physician Chief Complaint: Events noted Poorly responsive History of Present Illness: Patient was seen and examined. Poorly responsive. Chart was reviewed Monitor reveals atrial fibrillation with variable ventricular response. Lopressor IV for rate control - Current Medication List Current Medications: Active Medications Acetaminophen (Tylenol Suppository -) 650 mg [place] Q4H PRN PRN Reason: FEVER OR PAIN Last Admin: 09/02/16 03:00 Dose: 650 mg Pantoprazole Sodium (Protonix 40mg Ivpb (Pre-Docked)) 100 mls @ 200 mls/hr IVPB DAILY [facility] Last Admin: 09/05/16 09:42 Dose: 200 mls/hr Ampicillin Sodium/Sulbactam (Sodium 3 gm/ Sodium Chloride) 100 mls @ 200 mls/ hr IVPB Q24H [facility] Last Admin: 09/04/16 18:26 Dose: 200 mls/hr Insulin Aspart (Novolog Vial Sliding Scale -) 1 vial SQ ACHS [facility] PRN Reason: Protocol Last Admin: 09/05/16 12:31 Dose: Not Given Levetiracetam (Keppra Injection -) 500 mg IVPB BID [facility] Last Admin: 09/05/16 09:42 Dose: 500 mg Metoprolol Tartrate (Lopressor Injection -) 5 mg IVPB Q4H-IV [facility] Last Admin: 09/05/16 09:41 Dose: 5 mg - Objective Vital Signs: Vital Signs Temperature 98.2 F 09/05/16 08:00 Pulse Rate 121 H 09/05/16 09:41 Respiratory Rate 20 09/05/16 09:00 Blood Pressure 143/83 09/05/16 09:41 O2 Sat by Pulse Oximetry (%) 99 09/05/16 09:00 Neck: Yes: Supple Cardiovascular: Yes: Pulse Irregular, Murmur (Soft SM), S1, S2 Respiratory: Yes: Diminished Gastrointestinal: Yes: Normal Bowel Sounds, Soft. No: Tenderness Edema: No Labs: CBC, BMP 09/05/16 05:40 09/05/16 05:40 INR, PTT INR 1.53 (0.82-1.09) H 09/03/16 10:45 Problem List - Problems (1) Atrial fibrillation Code(s): I48.91 - UNSPECIFIED ATRIAL FIBRILLATION Qualifiers: Atrial fibrillation type: persistent Qualified Code(s): I48.1 - Persistent atrial fibrillation (2) CVA (cerebral vascular accident) Code(s): I63.9 - CEREBRAL INFARCTION, UNSPECIFIED Qualifiers: CVA mechanism: embolism Precerebral and cerebral artery: middle cerebral artery Laterality of affected vessel: right Qualified Code(s ): I63.411 - Cerebral infarction due to embolism of right middle cerebral artery (3) ESRD (end stage renal disease) on dialysis Code(s): N18.6 - END STAGE RENAL DISEASE Z99.2 - DEPENDENCE ON RENAL DIALYSIS (4) Hyperlipidemia associated with type 2 diabetes mellitus Code(s): E11.69 - TYPE 2 DIABETES MELLITUS WITH OTHER SPECIFIED COMPLICATION E78.5 - HYPERLIPIDEMIA, UNSPECIFIED (5) Hypertensive cardiomyopathy Code(s): I11.9 - HYPERTENSIVE HEART DISEASE WITHOUT HEART FAILURE I43 - CARDIOMYOPATHY IN DISEASES CLASSIFIED ELSEWHERE Qualifiers: Heart failure presence: without heart failure Qualified Code(s): I11.9 - Hypertensive heart disease without heart failure; I43 - Cardiomyopathy in diseases classified elsewhere (6) Systolic dysfunction without heart failure Code(s): I51.9 - HEART DISEASE, UNSPECIFIED Assessment/Plan 1. Acute right MCA stroke 2. Persistent atrial fibrillation with rapid ventricular response - persistent 3. LV systolic dysfunction 4. HTN/HCVD 5. Hyperlipidemia 6. Type 2 DM 7. ESRD on HD 8. Mitral valve and tricuspid valve disease PLAN: 1. Ideally needs to be on anticoagulation preferably Coumadin as patient is not a candidate for NOAC in view of ESRD, however; currently it has not been started in view of recent MCA stroke with risk of hemorrhagic conversion and underlying poor mental status and overall poor prognosis. Would continue supportive care. 2. Neurosurgery input noted. MRI of brain has been canceled for reason explained by Neurology 3. IV Lopressor given 4. HD per renal 5. Palliative consultation - Neurology and Neurosurgery input noted Prognosis overall is poor. Sean Clemons MD
--- NOTE | 2016-09-05 14:38 | PN ---
Progress Note (short form) - Note Progress Note: Renal Follow up for ESRD on HD Pt seen and examined at the bedside s/p family meeting this morning pt moving right arm but not alert or following commands s/p dialysis yesterday Vital Signs Temperature 98.2 F 09/05/16 08:00 Pulse Rate 111 H 09/05/16 14:03 Respiratory Rate 20 09/05/16 09:00 Blood Pressure 134/77 09/05/16 14:03 O2 Sat by Pulse Oximetry (%) 99 09/05/16 09:00 Intake & Output 09/02/16 09/03/16 09/04/16 09/05/16 23:59 23:59 23:59 23:59 Intake Total 900 660 110 100 Balance 900 660 110 100 Gen: NAD, lethargic HEENT: NC/AT, MMM, No JVD CVS: RRR, No M/R Lungs: CTA, no rales Abd: Soft, Obese, NT/ND Ext: no edema, clubbing or cyanosis CBC, BMP 09/05/16 05:40 09/05/16 05:40 Laboratory Tests 08/31/16 09/05/16 06:45 05:40 Calcium 8.5 Albumin 2.8 L Stool Occult Blood Pending Current Medications Acetaminophen (Tylenol Suppository -) 650 mg [place] Q4H PRN PRN Reason: FEVER OR PAIN Last Admin: 09/02/16 03:00 Dose: 650 mg Pantoprazole Sodium (Protonix 40mg Ivpb (Pre-Docked)) 100 mls @ 200 mls/hr IVPB DAILY [facility] Last Admin: 09/05/16 09:42 Dose: 200 mls/hr Ampicillin Sodium/Sulbactam (Sodium 3 gm/ Sodium Chloride) 100 mls @ 200 mls/ hr IVPB Q24H [facility] Last Admin: 09/04/16 18:26 Dose: 200 mls/hr Insulin Aspart (Novolog Vial Sliding Scale -) 1 vial SQ ACHS [facility] PRN Reason: Protocol Last Admin: 09/05/16 12:31 Dose: Not Given Levetiracetam (Keppra Injection -) 500 mg IVPB BID [facility] Last Admin: 09/05/16 09:42 Dose: 500 mg Metoprolol Tartrate (Lopressor Injection -) 5 mg IVPB Q4H-IV [facility] Last Admin: 09/05/16 14:03 Dose: 5 mg A/P 81 year old Gentleman with PMhx of ESRD on HD (MWF), Hypertension, CHF, DM2 who presented with AMS, unilateral weakness and found to have an acute CVA. #Acute MCA Stroke pt not alert Repeat imaging showed focal areas of ICH Neurology and Neuro Sx following no surgical intervention family considering hospice care on [facility] #ESRD on HD/hyperkalemia no indication for dialysis today next HD planned for tomorrow next dialysis is tomorrow family would like dialysis continued until the end of this week #New Afib Holding A/c Pola Darnell DO
--- NOTE | 2016-09-05 15:48 | PN ---
Progress Note (short form) - Note Progress Note: 81 Year old male history of ESRD on HD and DM, HTN and dyslipidemia.. He has left sided hemiparesis on night of sunday (august 30) and was brought to hospital and found to have left sided hemparsis, facial droop and initial ct scan is normal. He is also found to have new onset atrial fibrillation He has last ct scan done on september 02, showed petechial hemorrhage and edema PMH as above FH,ROS,Medicaiton reviwed in chart Neurological Examiantion He is not responding to verbal stimuli and withdrawing to pain and not moving left side left sided facial palsy, bilateral pupils are small and sluggishly reactive there is no sign of acute distress. Assessment- large right mca stroke, with mild midline shift and petechia hemorrhage overall prognosis was discussed with son again family considering hospic care continue supportive care Thanks for consult Rober Guy MD
[2016-09-05] MEDS: ACETAMINOPHEN 650 MG SUPP.RECT PR PRN (16:52)
[2016-09-05] MEDS ORDERED: PT OWN MED DRAWER 7, Y5N ONE (17:00)
[2016-09-05] MEDS: AMPICILLIN NA/SULBACTAM NA 3 GM in SODIUM CHLORIDE 100 ML IVPB SCH (20:30)
[2016-09-06] MEDS: METOPROLOL TARTRATE 5 MG/5 ML VIAL IVPB SCH ×6 (02:15→21:52)
[2016-09-06] MEDS: INSULIN SLIDING SCALE (NOVOLOG) 1 VIAL SQ SCH ×4 (06:03→21:53)
[2016-09-06] MEDS: ACETAMINOPHEN 650 MG SUPP.RECT PR PRN (06:08)
[2016-09-06] MEDS: PANTOPRAZOLE SODIUM 100 ML IVPB SCH ×2 (09:39→10:33)
[2016-09-06] MEDS: levETIRAcetam 500 MG/5 ML INJECTION VIAL IVPB SCH ×3 (09:39→21:53)
--- NOTE | 2016-09-06 10:12 | PN ---
Progress Note, Physician History of Present Illness: Remains unresponsive with left hemiparesis, left facial palsy. Undergoing HD, in rapid afib. - Current Medication List Current Medications: Active Medications Acetaminophen (Tylenol Suppository -) 650 mg [place] Q4H PRN PRN Reason: FEVER OR PAIN Last Admin: 09/06/16 06:08 Dose: 650 mg Pantoprazole Sodium (Protonix 40mg Ivpb (Pre-Docked)) 100 mls @ 200 mls/hr IVPB DAILY [facility] Last Admin: 09/06/16 09:39 Dose: Not Given Ampicillin Sodium/Sulbactam (Sodium 3 gm/ Sodium Chloride) 100 mls @ 200 mls/ hr IVPB Q24H [facility] Last Admin: 09/05/16 20:30 Dose: 200 mls/hr Insulin Aspart (Novolog Vial Sliding Scale -) 1 vial SQ ACHS [facility] PRN Reason: Protocol Last Admin: 09/06/16 06:03 Dose: Not Given Levetiracetam (Keppra Injection -) 500 mg IVPB BID [facility] Last Admin: 09/06/16 09:39 Dose: Not Given Metoprolol Tartrate (Lopressor Injection -) 5 mg IVPB Q4H-IV [facility] Last Admin: 09/06/16 09:42 Dose: 5 mg - Objective Vital Signs: Vital Signs Temperature 99.7 F H 09/06/16 09:35 Pulse Rate 65 09/06/16 10:10 Respiratory Rate 18 09/06/16 10:10 Blood Pressure 93/57 09/06/16 10:10 O2 Sat by Pulse Oximetry (%) 98 09/05/16 21:00 Constitutional: Yes: No Distress, Calm Neck: Yes: Supple Cardiovascular: Yes: Tachycardia, Pulse Irregular, Murmur (2/6 SM) Respiratory: Yes: Regular, Diminished, On Nasal O2 Gastrointestinal: Yes: Normal Bowel Sounds, Soft Edema: No Neurological: Yes: Unresponsive, Weakness ...Motor Strength: LUE, LLE Labs: CBC, BMP 09/05/16 05:40 09/05/16 05:40 INR, PTT INR 1.53 (0.82-1.09) H 09/03/16 10:45 - ....Imaging EKG: Report Reviewed (Tele: Rapid afib) Problem List - Problems (1) CVA (cerebral vascular accident) Code(s): I63.9 - CEREBRAL INFARCTION, UNSPECIFIED Qualifiers: CVA mechanism: embolism Precerebral and cerebral artery: middle cerebral artery Laterality of affected vessel: right Qualified Code(s ): I63.411 - Cerebral infarction due to embolism of right middle cerebral artery (2) ESRD (end stage renal disease) on dialysis Code(s): N18.6 - END STAGE RENAL DISEASE Z99.2 - DEPENDENCE ON RENAL DIALYSIS (3) Systolic dysfunction without heart failure Code(s): I51.9 - HEART DISEASE, UNSPECIFIED (4) Hyperlipidemia associated with type 2 diabetes mellitus Code(s): E11.69 - TYPE 2 DIABETES MELLITUS WITH OTHER SPECIFIED COMPLICATION E78.5 - HYPERLIPIDEMIA, UNSPECIFIED (5) Hypertensive cardiomyopathy Code(s): I11.9 - HYPERTENSIVE HEART DISEASE WITHOUT HEART FAILURE I43 - CARDIOMYOPATHY IN DISEASES CLASSIFIED ELSEWHERE Qualifiers: Heart failure presence: without heart failure Qualified Code(s): I11.9 - Hypertensive heart disease without heart failure; I43 - Cardiomyopathy in diseases classified elsewhere (6) Atrial fibrillation Code(s): I48.91 - UNSPECIFIED ATRIAL FIBRILLATION Qualifiers: Atrial fibrillation type: persistent Qualified Code(s): I48.1 - Persistent atrial fibrillation Assessment/Plan 09/01/2016 Echocardiography reveals mildly reduced LV systolic function. moderate to severe MR, moderate TR, mild to moderate , moderate AR, mild NV 1. Acute right MCA stroke with mild midline shift and petechia hemorrhage 2. Persistent atrial fibrillation with rapid ventricular response - persistent 3. LV systolic dysfunction 4. HTN/HCVD 5. Hyperlipidemia 6. Type 2 DM 7. ESRD on HD 8. Mitral valve and tricuspid valve disease PLAN: 1. Ideally needs to be on anticoagulation preferably Coumadin as patient is not a candidate for NOAC in view of ESRD, however; currently it has not been started in view of recent MCA stroke with petechial hemorrhagic conversion and underlying poor mental status and overall poor prognosis. Would continue supportive care. 2. Neurosurgery and neurology input noted. 3. Continue IV Lopressor for rate-control 4. HD per renal 5. Empiric abx, seizure prophylaxis, GI prophylaxis 6. Palliative consultation given poor prognosis, hospice care being considered.
[2016-09-06 10:21] LABS: BASOPHIL 0.2 % (0-2.0); MCH 30.9 pg (25.7-33.7); MCHC 32.7 g/dl (32.0-35.9); MEAN CELL VOLUME 94.3 fl (80-96); MEAN PLT VOLUME 9.3 fl (7.5-11.1); NEUTROPHILS 85.1 % (42.8-82.8); PLATELET COUNT 275 K/MM3 (134-434); RDW 14.2 % (11.9-15.9); WHITE BLOOD COUNT 18.9 K/mm3 (4.0-10.0)
[2016-09-06 11:20] LABS: ALBUMIN 2.9 g/dl (3.4-5.0); BILIRUBIN,TOTAL 0.8 mg/dL (0.2-1.0); CALCIUM 8.5 mg/dL (8.5-10.1); TOT PROT 7.5 g/dl (6.4-8.2)
[2016-09-06 11:28] LABS: COCKROFT - GAULT 5.92
[2016-09-06 11:34] LABS: CREATININE 9.8 mg/dL (0.7-1.3)
--- NOTE | 2016-09-06 13:37 | PN ---
Progress Note (short form) - Note Progress Note: Renal Follow up for ESRD on HD Pt seen and examined at the bedside s/p family meeting this morning pt moving right arm but not alert or following commands s/p dialysis yesterday Vital Signs Temperature 98.2 F 09/05/16 08:00 Pulse Rate 111 H 09/05/16 14:03 Respiratory Rate 20 09/05/16 09:00 Blood Pressure 134/77 09/05/16 14:03 O2 Sat by Pulse Oximetry (%) 99 09/05/16 09:00 Intake & Output 09/02/16 09/03/16 09/04/16 09/05/16 23:59 23:59 23:59 23:59 Intake Total 900 660 110 100 Balance 900 660 110 100 Gen: NAD, lethargic HEENT: NC/AT, MMM, No JVD CVS: RRR, No M/R Lungs: CTA, no rales Abd: Soft, Obese, NT/ND Ext: no edema, clubbing or cyanosis CBC, BMP 09/05/16 05:40 09/05/16 05:40 Laboratory Tests 08/31/16 09/05/16 06:45 05:40 Calcium 8.5 Albumin 2.8 L Stool Occult Blood Pending Current Medications Acetaminophen (Tylenol Suppository -) 650 mg [place] Q4H PRN PRN Reason: FEVER OR PAIN Last Admin: 09/02/16 03:00 Dose: 650 mg Pantoprazole Sodium (Protonix 40mg Ivpb (Pre-Docked)) 100 mls @ 200 mls/hr IVPB DAILY [facility] Last Admin: 09/05/16 09:42 Dose: 200 mls/hr Ampicillin Sodium/Sulbactam (Sodium 3 gm/ Sodium Chloride) 100 mls @ 200 mls/ hr IVPB Q24H [facility] Last Admin: 09/04/16 18:26 Dose: 200 mls/hr Insulin Aspart (Novolog Vial Sliding Scale -) 1 vial SQ ACHS [facility] PRN Reason: Protocol Last Admin: 09/05/16 12:31 Dose: Not Given Levetiracetam (Keppra Injection -) 500 mg IVPB BID [facility] Last Admin: 09/05/16 09:42 Dose: 500 mg Metoprolol Tartrate (Lopressor Injection -) 5 mg IVPB Q4H-IV [facility] Last Admin: 09/05/16 14:03 Dose: 5 mg A/P 81 year old Gentleman with PMhx of ESRD on HD (MWF), Hypertension, CHF, DM2 who presented with AMS, unilateral weakness and found to have an acute CVA. #Acute MCA Stroke pt not alert Repeat imaging showed focal areas of ICH Neurology and Neuro Sx following no surgical intervention family considering hospice care on [facility] #ESRD on HD/hyperkalemia no indication for dialysis today next HD planned for tomorrow next dialysis is tomorrow family would like dialysis continued until the end of this week #[employer]/c Pola Darnell DO
--- NOTE | 2016-09-06 13:41 | PN ---
Progress Note (short form) - Note Progress Note: Renal Follow up for ESRD on HD Pt seen and examined during dialysis BP stable, access with good function goal UF is 1.5L Treatment extended extra 30 mins for High K Family at the bedside Vital Signs Temperature 99.7 F H 09/06/16 09:35 Pulse Rate 62 09/06/16 13:15 Respiratory Rate 18 09/06/16 13:15 Blood Pressure 109/62 09/06/16 13:15 O2 Sat by Pulse Oximetry (%) 98 09/06/16 09:00 Intake & Output 09/03/16 09/04/16 09/05/16 09/06/16 23:59 23:59 23:59 23:59 Intake Total 660 110 100 Balance 660 110 100 Gen: NAD, lethargic HEENT: NC/AT, MMM, No JVD CVS: RRR, No M/R Lungs: CTA, no rales Abd: Soft, Obese, NT/ND Ext: no edema, clubbing or cyanosis CBC, BMP 09/06/16 09:40 09/06/16 09:40 Current Medications Acetaminophen (Tylenol Suppository -) 650 mg [place] Q4H PRN PRN Reason: FEVER OR PAIN Last Admin: 09/06/16 06:08 Dose: 650 mg Pantoprazole Sodium (Protonix 40mg Ivpb (Pre-Docked)) 100 mls @ 200 mls/hr IVPB DAILY [facility] Last Admin: 09/06/16 10:33 Dose: 200 mls/hr Ampicillin Sodium/Sulbactam (Sodium 3 gm/ Sodium Chloride) 100 mls @ 200 mls/ hr IVPB Q24H [facility] Last Admin: 09/05/16 20:30 Dose: 200 mls/hr Insulin Aspart (Novolog Vial Sliding Scale -) 1 vial SQ ACHS [facility] PRN Reason: Protocol Last Admin: 09/06/16 11:49 Dose: Not Given Levetiracetam (Keppra Injection -) 500 mg IVPB BID [facility] Last Admin: 09/06/16 10:34 Dose: 500 mg Metoprolol Tartrate (Lopressor Injection -) 5 mg IVPB Q4H-IV [facility] Last Admin: 09/06/16 09:42 Dose: 5 mg A/P 81 year old Gentleman with PMhx of ESRD on HD (MWF), Hypertension, CHF, DM2 who presented with AMS, unilateral weakness and found to have an acute CVA. #Acute MCA Stroke supportive care family considering at home vs. outpatient in center hospice #ESRD on HD/hyperkalemia Tolerating dialysis well will plan for next dialysis on Sunday #[employer]/c Pola Darnell DO
[2016-09-06] MEDS ORDERED: PT OWN MED DRAWER 7, Y5N ONE (18:29)
[2016-09-06] MEDS: AMPICILLIN NA/SULBACTAM NA 3 GM in SODIUM CHLORIDE 100 ML IVPB SCH (18:30)
--- NOTE | 2016-09-06 20:48 | PN ---
Physical Exam: SUBJECTIVE: Patient seen and examined on HD, tolerating well. No verbal or change in mental status overnight. OBJECTIVE: Vital Signs Period Temp Pulse Resp BP Sys/Avila Pulse Ox Last 24 Hr 98.2 F-99.8 F 60-140 18-20 90-157/38-88 98-98 PE Neuro: non verbal, unresponsive to tactile stimuli, left facial droop HEENT: pupils are small, min reaction to light, min accommodation Pulm: diminished, scattered rhonchi CV: s1 s2 irregular rhythm Abd: s nt nd + bs Ext: LUE fistula, L hand swelling Laboratory Results - last 24 hr 09/05/16 09/06/16 09/06/16 21:11 06:00 09:40 WBC 18.9 H D RBC 4.20 Hgb 13.0 Hct 39.6 MCV 94.3 MCHC 32.7 RDW 14.2 Plt Count 275 D MPV 9.3 Neutrophils % 85.1 H Lymphocytes % 3.7 L D Monocytes % 11.0 H Eosinophils % 0.0 D Basophils % 0.2 Sodium Potassium Chloride Carbon Dioxide Anion Gap BUN Creatinine Creat Clearance w eGFR POC Glucometer 156 165 Random Glucose Calcium Total Bilirubin AST ALT Alkaline Phosphatase Total Protein Albumin 09/06/16 09/06/16 09/06/16 09:40 11:41 15:41 WBC RBC Hgb Hct MCV MCHC RDW Plt Count MPV Neutrophils % Lymphocytes % Monocytes % Eosinophils % Basophils % Sodium 149 H Potassium 6.1 H* Chloride 104 Carbon Dioxide 25 Anion Gap 20 H BUN 111 H* D Creatinine 9.8 H* D Creat Clearance w eGFR 5.18 POC Glucometer 167 184 Random Glucose 199 H Calcium 8.5 Total Bilirubin 0.8 AST 24 ALT 21 Alkaline Phosphatase 100 Total Protein 7.5 Albumin 2.9 L Active Medications Generic Name Dose Route Start Last Admin Trade Name Freq PRN Reason Stop Dose Admin Acetaminophen 650 mg 09/02/16 02:51 09/06/16 06:08 Tylenol Suppository - [place] 650 mg Q4H PRN Administration FEVER OR PAIN Pantoprazole Sodium 100 mls @ 200 mls/hr 09/02/16 10:00 09/06/16 10:33 Protonix 40mg Ivpb (Pre-Docked) IVPB 200 mls/hr DAILY [facility] Administration Ampicillin Sodium/Sulbactam 100 mls @ 200 mls/hr 09/02/16 19:30 09/06/16 18:30 Sodium 3 gm/ Sodium Chloride IVPB 200 mls/hr Q24H [facility] Administration Insulin Aspart 1 vial 09/03/16 11:00 09/06/16 17:41 Novolog Vial Sliding Scale - SQ Not Given ACHS [facility] Protocol Levetiracetam 500 mg 09/01/16 16:45 09/06/16 10:34 Keppra Injection - IVPB 500 mg BID [facility] Administration Metoprolol Tartrate 5 mg 09/03/16 10:00 09/06/16 17:48 Lopressor Injection - IVPB 5 mg Q4H-IV [facility] Administration Microbiology 09/02/16 03:00 Blood Culture - Preliminary Blood - Peripheral Venous NO GROWTH OBTAINED AFTER 96 HOURS, INCUBATION TO CONTINUE FOR 1 DAYS. 09/02/16 03:00 Blood Culture - Preliminary Blood - Peripheral Venous NO GROWTH OBTAINED AFTER 96 HOURS, INCUBATION TO CONTINUE FOR 1 DAYS. Imaging: - Head CT 08/31/2016 - No evidence of acute ICH, edema or midline shift. - Head CT 09/01/2016 - interval large acute right middle cerebral artery territorial infarct involving the right basal ganglia with mass effect effacing the cortical suci as well as mild effacement of the right lateral ventricle and very minimal shift towards the left. Note is made of a hyperdense right middle cerebral artery sign suggestive of thrombosis/occlusion. - Head CT 09/02/2016 - In comparison to previous CT study 09/01, there is a small amount of petechial blood in association with a large acute right cerebral infarct involving the distribution of the middle cerebral artery. The degree of petechial blood appears mildly increased. No focal hematoma is noted. Infarct swelling appears unchanged. - Head CT 09/03/2016 - again shows small amount of petecial blood scattered around acute infarct Assessment: 81 year old male with a significant past medical history of ESRD on MWF HD, s/p thrombolysis of venous aneurysm 08/16, DM II, HTN, HLD, admitted with AMS and left sided weakness, found to have new onset A fib. Plan: 1. Large right Acute MCA cva / midline shift and petechia hemorrhage conversation - Hold AC d/t bleed - Repeat CT shows no change - Seizures precaution IV keppra 500mg BID - Will d/w neuro for alternate medication, as pt remains npo and family declines Peg tube - Family to decide hospice based off of head CT results, may or may not move fwd with HD Sunday 2. New onset A fib - Rate controlled - Lopressor IV q4 - No AC d/t hemorrhagic cva 3. ESRD on HD - HD today - HD Sunday, d/w renal 4. Hyperkalemia - HD as above 5. PNA, ?aspiration - Unasyn q24hr renal dose 6. DM II, uncontrolled - ISS, BGM q6 - Hgb a1c 8.7 Visit type - Emergency Visit Emergency Visit: Yes ED Registration Date: 08/31/16 Care time: The patient presented to the Emergency Department on the above date and was hospitalized for further evaluation of their emergent condition. - New Patient This patient is new to me today: Yes Date on this admission: 09/06/16 - Critical Care Critical Care patient: No
[2016-09-07 00:08] LABS: HEP B SURFACE AB Reactive (.)
[2016-09-07] MEDS: METOPROLOL TARTRATE 5 MG/5 ML VIAL IVPB SCH ×6 (01:58→22:25)
[2016-09-07] MEDS: INSULIN SLIDING SCALE (NOVOLOG) 1 VIAL SQ SCH ×4 (06:11→22:43)
[2016-09-07] MEDS: levETIRAcetam 500 MG/5 ML INJECTION VIAL IVPB SCH (10:30)
[2016-09-07] MEDS: PANTOPRAZOLE SODIUM 100 ML IVPB SCH (10:30)
--- NOTE | 2016-09-07 12:35 | PN ---
Progress Note, Physician History of Present Illness: Remains unresponsive with left hemiparesis, left facial palsy. Undergoing HD, in rapid afib. - Current Medication List Current Medications: Active Medications Acetaminophen (Tylenol Suppository -) 650 mg ND Q4H PRN PRN Reason: FEVER OR PAIN Last Admin: 09/06/16 06:08 Dose: 650 mg Pantoprazole Sodium (Protonix 40mg Ivpb (Pre-Docked)) 100 mls @ 200 mls/hr IVPB DAILY [facility] Last Admin: 09/07/16 10:30 Dose: 200 mls/hr Ampicillin Sodium/Sulbactam (Sodium 3 gm/ Sodium Chloride) 100 mls @ 200 mls/ hr IVPB Q24H [facility] Last Admin: 09/06/16 18:30 Dose: 200 mls/hr Insulin Aspart (Novolog Vial Sliding Scale -) 1 vial SQ ACHS [facility] PRN Reason: Protocol Last Admin: 09/07/16 06:11 Dose: Not Given Levetiracetam (Keppra Injection -) 500 mg IVPB BID [facility] Last Admin: 09/07/16 10:30 Dose: 500 mg Metoprolol Tartrate (Lopressor Injection -) 5 mg IVPB Q4H-IV [facility] Last Admin: 09/07/16 10:30 Dose: 5 mg - Objective Vital Signs: Vital Signs Temperature 98.1 F 09/07/16 08:42 Pulse Rate 125 H 09/07/16 10:30 Respiratory Rate 20 09/07/16 08:42 Blood Pressure 106/59 09/07/16 10:30 O2 Sat by Pulse Oximetry (%) 100 09/07/16 06:00 Constitutional: Yes: No Distress, Calm Neck: Yes: Supple Cardiovascular: Yes: Tachycardia, Pulse Irregular Respiratory: Yes: Regular, Diminished Gastrointestinal: Yes: Normal Bowel Sounds, Soft Edema: No Neurological: Yes: Weakness ...Motor Strength: LUE, LLE Labs: CBC, BMP 09/06/16 09:40 09/06/16 09:40 INR, PTT INR 1.53 (0.82-1.09) H 09/03/16 10:45 - ....Imaging EKG: Report Reviewed (Tele: Rate-controlled afib) Problem List - Problems (1) CVA (cerebral vascular accident) Code(s): I63.9 - CEREBRAL INFARCTION, UNSPECIFIED Qualifiers: CVA mechanism: embolism Precerebral and cerebral artery: middle cerebral artery Laterality of affected vessel: right Qualified Code(s ): I63.411 - Cerebral infarction due to embolism of right middle cerebral artery (2) ESRD (end stage renal disease) on dialysis Code(s): N18.6 - END STAGE RENAL DISEASE Z99.2 - DEPENDENCE ON RENAL DIALYSIS (3) Systolic dysfunction without heart failure Code(s): I51.9 - HEART DISEASE, UNSPECIFIED (4) Hyperlipidemia associated with type 2 diabetes mellitus Code(s): E11.69 - TYPE 2 DIABETES MELLITUS WITH OTHER SPECIFIED COMPLICATION E78.5 - HYPERLIPIDEMIA, UNSPECIFIED (5) Hypertensive cardiomyopathy Code(s): I11.9 - HYPERTENSIVE HEART DISEASE WITHOUT HEART FAILURE I43 - CARDIOMYOPATHY IN DISEASES CLASSIFIED ELSEWHERE Qualifiers: Heart failure presence: without heart failure Qualified Code(s): I11.9 - Hypertensive heart disease without heart failure; I43 - Cardiomyopathy in diseases classified elsewhere (6) Atrial fibrillation Code(s): I48.91 - UNSPECIFIED ATRIAL FIBRILLATION Qualifiers: Atrial fibrillation type: persistent Qualified Code(s): I48.1 - Persistent atrial fibrillation Assessment/Plan 09/01/2016 Echocardiography reveals mildly reduced LV systolic function. moderate to severe MR, moderate TR, mild to moderate , moderate AR, mild ND 1. Acute right MCA stroke with mild midline shift and petechia hemorrhage 2. Persistent atrial fibrillation with rapid ventricular response - persistent 3. LV systolic dysfunction 4. HTN/HCVD 5. Hyperlipidemia 6. Type 2 DM 7. ESRD on HD with hyperkalemia 8. Mitral valve and tricuspid valve disease PLAN: 1. Ideally needs to be on anticoagulation preferably Coumadin as patient is not a candidate for NOAC in view of ESRD, however; currently it has not been started in view of recent MCA stroke with petechial hemorrhagic conversion and underlying poor mental status and overall poor prognosis. Would continue supportive care. 2. Neurosurgery and neurology input noted. 3. Continue IV Lopressor for rate-control 4. HD per renal 5. Empiric abx, seizure prophylaxis, GI prophylaxis, PEG tube declined 6. Plan to discharge for home hospice care tomorrow, d/w family.
--- NOTE | 2016-09-07 12:52 | PN ---
Progress Note (short form) - Note Progress Note: Renal Follow up for ESRD on HD Pt seen and examined at the bedside no overnight events remains non-verbal and only moving Right side Vital Signs Temperature 98.1 F 09/07/16 08:42 Pulse Rate 125 H 09/07/16 10:30 Respiratory Rate 20 09/07/16 08:42 Blood Pressure 106/59 09/07/16 10:30 O2 Sat by Pulse Oximetry (%) 100 09/07/16 06:00 Intake & Output 09/04/16 09/05/16 09/06/16 09/07/16 23:59 23:59 23:59 23:59 Intake Total 110 100 0 40 Balance 110 100 0 40 Gen: NAD, lethargic HEENT: NC/AT, MMM, No JVD CVS: RRR, No M/R Lungs: CTA, no rales Abd: Soft, Obese, NT/ND Ext: no edema, clubbing or cyanosis CBC, BMP 09/06/16 09:40 09/06/16 09:40 Current Medications Acetaminophen (Tylenol Suppository -) 650 mg [place] Q4H PRN PRN Reason: FEVER OR PAIN Last Admin: 09/06/16 06:08 Dose: 650 mg Pantoprazole Sodium (Protonix 40mg Ivpb (Pre-Docked)) 100 mls @ 200 mls/hr IVPB DAILY [facility] Last Admin: 09/07/16 10:30 Dose: 200 mls/hr Ampicillin Sodium/Sulbactam (Sodium 3 gm/ Sodium Chloride) 100 mls @ 200 mls/ hr IVPB Q24H [facility] Last Admin: 09/06/16 18:30 Dose: 200 mls/hr Insulin Aspart (Novolog Vial Sliding Scale -) 1 vial SQ ACHS [facility] PRN Reason: Protocol Last Admin: 09/07/16 06:11 Dose: Not Given Levetiracetam (Keppra Injection -) 500 mg IVPB BID [facility] Last Admin: 09/07/16 10:30 Dose: 500 mg Metoprolol Tartrate (Lopressor Injection -) 5 mg IVPB Q4H-IV [facility] Last Admin: 09/07/16 10:30 Dose: 5 mg A/P 81 year old Gentleman with PMhx of ESRD on HD (MWF), Hypertension, CHF, DM2 who presented with AMS, unilateral weakness and found to have an acute CVA. #Acute MCA Stroke to be d/c to home Hospice tomorrow on Keppra #ESRD on HD/hyperkalemia family wishes that dialysis be discontinued at this time #[employer] A/c Pola Darnell DO
[2016-09-07] MEDS: ACETAMINOPHEN 650 MG SUPP.RECT PR PRN (15:00)
--- NOTE | 2016-09-07 15:32 | PN ---
Physical Exam: SUBJECTIVE: Patient seen and examined. No acute changes, no acute events. OBJECTIVE: Vital Signs Period Temp Pulse Resp BP Sys/Avila Pulse Ox Last 24 Hr 96.8 F-98.9 F 118-130 18-21 105-122/44-78 98-100 PE Neuro: non verbal, unresponsive to tactile stimuli, left facial droop HEENT: pupils are small, min reaction to light, min accommodation Pulm: diminished, scattered rhonchi CV: s1 s2 irregular rhythm Abd: s nt nd + bs Ext: LUE fistula, L hand swelling, spontaneous movement of RUE, no purposeful Laboratory Results - last 24 hr 09/01/16 09/06/16 09/06/16 07:15 15:41 21:35 POC Glucometer 184 185 Hep A IgM Ab Confirm Negative Hepatitis A Ab Total Positive H Hep Bs Antigen Negative Hep Bs Antibody Reactive Hep B Core Total Ab Negative 09/07/16 09/07/16 05:45 11:24 POC Glucometer 209 228 Hep A IgM Ab Confirm Hepatitis A Ab Total Hep Bs Antigen Hep Bs Antibody Hep B Core Total Ab Active Medications Generic Name Dose Route Start Last Admin Trade Name Freq PRN Reason Stop Dose Admin Acetaminophen 650 mg 09/02/16 02:51 09/07/16 15:00 Tylenol Suppository - [place] 650 mg Q4H PRN Administration FEVER OR PAIN Pantoprazole Sodium 100 mls @ 200 mls/hr 09/02/16 10:00 09/07/16 10:30 Protonix 40mg Ivpb (Pre-Docked) IVPB 200 mls/hr DAILY [facility] Administration Ampicillin Sodium/Sulbactam 100 mls @ 200 mls/hr 09/02/16 19:30 09/06/16 18:30 Sodium 3 gm/ Sodium Chloride IVPB 200 mls/hr Q24H [facility] Administration Insulin Aspart 1 vial 09/03/16 11:00 09/07/16 13:04 Novolog Vial Sliding Scale - SQ 4 units ACHS [facility] Administration Protocol Metoprolol Tartrate 5 mg 09/03/16 10:00 09/07/16 15:00 Lopressor Injection - IVPB 5 mg Q4H-IV [facility] Administration Imaging: - Head CT 08/31/2016 - No evidence of acute ICH, edema or midline shift. - Head CT 09/01/2016 - interval large acute right middle cerebral artery territorial infarct involving the right basal ganglia with mass effect effacing the cortical suci as well as mild effacement of the right lateral ventricle and very minimal shift towards the left. Note is made of a hyperdense right middle cerebral artery sign suggestive of thrombosis/occlusion. - Head CT 09/02/2016 - In comparison to previous CT study 09/01, there is a small amount of petechial blood in association with a large acute right cerebral infarct involving the distribution of the middle cerebral artery. The degree of petechial blood appears mildly increased. No focal hematoma is noted. Infarct swelling appears unchanged. - Head CT 09/03/2016 - again shows small amount of petecial blood scattered around acute infarct - Head CT 09/06: no change Assessment: 81 year old male with a significant past medical history of ESRD on MWF HD, s/p thrombolysis of venous aneurysm 08/16, DM II, HTN, HLD, admitted with AMS and left sided weakness, found to have new onset A fib. Plan: 1. Large right Acute MCA cva / midline shift and petechia hemorrhage conversation - D/w neuro, dose not believe pt had seizure, will stop at this time - If any activity overnight, will add PRN diastat - Hold AC d/t bleed 2. New onset A fib - Rate controlled - Lopressor IV q4 - No AC d/t hemorrhagic cva 3. ESRD on HD - Family wishes to discontinue HD 4. Hyperkalemia - s/p HD 09/06 5. PNA, ?aspiration - Unasyn q24hr renal dose 6. DM II, uncontrolled - ISS, BGM q6 - Hgb a1c 8.7 Dispo: - [facility] Visit type - Emergency Visit Emergency Visit: Yes ED Registration Date: 08/31/16 Care time: The patient presented to the Emergency Department on the above date and was hospitalized for further evaluation of their emergent condition. - New Patient This patient is new to me today: No - Critical Care Critical Care patient: No
[2016-09-07] MEDS: ACETAMINOPHEN 1000 MG/100 ML VIAL (NON FORMULARY) IVPB PRN (18:00)
[2016-09-07] MEDS ORDERED: PT OWN MED DRAWER 7, Y5N ONE (20:33)
[2016-09-07] MEDS: AMPICILLIN NA/SULBACTAM NA 3 GM in SODIUM CHLORIDE 100 ML IVPB SCH (20:36)
[2016-09-08] MEDS: ACETAMINOPHEN 1000 MG/100 ML VIAL (NON FORMULARY) IVPB PRN (00:05)
[2016-09-08] MEDS: METOPROLOL TARTRATE 5 MG/5 ML VIAL IVPB SCH ×3 (01:14→09:58)
[2016-09-08 05:55] VITALS: TEMP 97.4
[2016-09-08] MEDS: INSULIN SLIDING SCALE (NOVOLOG) 1 VIAL SQ SCH ×2 (06:29→11:17)
--- NOTE | 2016-09-08 07:41 | PN ---
Progress Note (short form) - Note Progress Note: NEUROSURGERY In bed PE: Tmax 99.8, VSS HEENT- NC/AT; Neck- supple; Cor- irreg; Lungs- CTA B but decreased BS at bases B ; Abd- benign; Ext- L UE AVF Not following command CN- pupils 4 mm sluggish with R sided pupil deviation; L facial droop; Motor- DEnse L hemiparesis; R side localizing to pain UE; minimal R LE movement; Sensation- difficult to assess; DTR- hyporeflexia Head CT (24) Stable appearance as prior scan: large R MCA stroke with mild- moderate mass effect; mild petechial hemorrhage as previously Large R MCA ischemic stroke with petechial hemorrhagic transformation Prognosis poor size of R MCA stroke and multiple underlying medical issues Will sign off, reconsult prn Neurology management for stroke Supportive care
--- NOTE | 2016-09-08 09:40 | PN ---
Progress Note, Physician History of Present Illness: Remains unresponsive with left hemiparesis, left facial palsy. HD d/mary, remains in rapid afib, plan for home hospice, family by bedside. - Current Medication List Current Medications: Active Medications Acetaminophen (Tylenol Suppository -) 650 mg [place] Q4H PRN PRN Reason: FEVER OR PAIN Last Admin: 09/07/16 15:00 Dose: 650 mg Acetaminophen (Ofirmev Injection -) 1,000 mg IVPB Q6H PRN PRN Reason: FEVER OR PAIN Stop: 09/08/16 11:25 Last Admin: 09/08/16 00:05 Dose: 1,000 mg Pantoprazole Sodium (Protonix 40mg Ivpb (Pre-Docked)) 100 mls @ 200 mls/hr IVPB DAILY [facility] Last Admin: 09/07/16 10:30 Dose: 200 mls/hr Ampicillin Sodium/Sulbactam (Sodium 3 gm/ Sodium Chloride) 100 mls @ 200 mls/ hr IVPB Q24H [facility] Last Admin: 09/07/16 20:36 Dose: 200 mls/hr Insulin Aspart (Novolog Vial Sliding Scale -) 1 vial SQ ACHS [facility] PRN Reason: Protocol Last Admin: 09/08/16 06:29 Dose: Not Given Metoprolol Tartrate (Lopressor Injection -) 5 mg IVPB Q4H-IV [facility] Last Admin: 09/08/16 06:26 Dose: 5 mg - Objective Vital Signs: Vital Signs Temperature 97.4 F L 09/08/16 05:49 Pulse Rate 84 09/08/16 06:26 Respiratory Rate 22 09/08/16 05:49 Blood Pressure 110/71 09/08/16 06:26 O2 Sat by Pulse Oximetry (%) 97 09/07/16 21:00 Constitutional: Yes: No Distress, Calm Neck: Yes: Supple Cardiovascular: Yes: Tachycardia, Pulse Irregular Respiratory: Yes: Regular, Diminished Gastrointestinal: Yes: Soft, Hypoactive Bowel Sounds Edema: No Neurological: Yes: Weakness ...Motor Strength: LUE, LLE Labs: CBC, BMP 09/06/16 09:40 09/06/16 09:40 INR, PTT INR 1.53 (0.82-1.09) H 09/03/16 10:45 - ....Imaging EKG: Report Reviewed (Tele: Rapid afib) Problem List - Problems (1) CVA (cerebral vascular accident) Code(s): I63.9 - CEREBRAL INFARCTION, UNSPECIFIED Qualifiers: CVA mechanism: embolism Precerebral and cerebral artery: middle cerebral artery Laterality of affected vessel: right Qualified Code(s ): I63.411 - Cerebral infarction due to embolism of right middle cerebral artery (2) ESRD (end stage renal disease) on dialysis Code(s): N18.6 - END STAGE RENAL DISEASE Z99.2 - DEPENDENCE ON RENAL DIALYSIS (3) Systolic dysfunction without heart failure Code(s): I51.9 - HEART DISEASE, UNSPECIFIED (4) Hyperlipidemia associated with type 2 diabetes mellitus Code(s): E11.69 - TYPE 2 DIABETES MELLITUS WITH OTHER SPECIFIED COMPLICATION E78.5 - HYPERLIPIDEMIA, UNSPECIFIED (5) Hypertensive cardiomyopathy Code(s): I11.9 - HYPERTENSIVE HEART DISEASE WITHOUT HEART FAILURE I43 - CARDIOMYOPATHY IN DISEASES CLASSIFIED ELSEWHERE Qualifiers: Heart failure presence: without heart failure Qualified Code(s): I11.9 - Hypertensive heart disease without heart failure; I43 - Cardiomyopathy in diseases classified elsewhere (6) Atrial fibrillation Code(s): I48.91 - UNSPECIFIED ATRIAL FIBRILLATION Qualifiers: Atrial fibrillation type: persistent Qualified Code(s): I48.1 - Persistent atrial fibrillation Assessment/Plan 09/01/2016 Echocardiography reveals mildly reduced LV systolic function. moderate to severe MR, moderate TR, mild to moderate , moderate AR, mild NC 1. Acute right MCA stroke with mild midline shift and petechia hemorrhage 2. Persistent atrial fibrillation with rapid ventricular response - persistent 3. LV systolic dysfunction 4. HTN/HCVD 5. Hyperlipidemia 6. Type 2 DM 7. ESRD on HD with hyperkalemia 8. Mitral valve and tricuspid valve disease PLAN: 1. Continue IV Lopressor for rate-control 2. HD d/mary 3. D/c empiric abx, seizure prophylaxis, GI prophylaxis, PEG tube declined 4. Plan to discharge for home hospice care, d/w family.
[2016-09-08] MEDS: PANTOPRAZOLE SODIUM 100 ML IVPB SCH (09:59)
[2016-09-08 10:00] VITALS: BP 109/74; PULSE 121
--- NOTE | 2016-09-08 10:29 | DS ---
Physical Exam: SUBJECTIVE: Patient seen and examined. He has increased secretions, no change in mental status, family at bedside. OBJECTIVE: Vital Signs Period Temp Pulse Resp BP Sys/Avila Pulse Ox Last 24 Hr 97.4 F-102.6 F 84-131 20-22 94-128/58-74 97 PE Neuro: non verbal, unresponsive to tactile stimuli, left facial droop HEENT: pupils are small, min reaction to light, min accommodation Pulm: diminished, scattered rhonchi +nc + secretions CV: s1 s2 irregular rhythm/rate Abd: s nt nd + bs Ext: LUE fistula, L hand swelling, spontaneous movement of RUE, no purposeful Laboratory Results - last 24 hr 09/07/16 09/07/16 09/07/16 11:24 17:11 21:43 POC Glucometer 228 182 204 09/08/16 06:19 POC Glucometer 195 HOSPITAL COURSE: Date of Admission:08/31/16 Date of Discharge: 09/08/16 Minutes to complete discharge: 35 Discharge Summary Reason For Visit: CVA ESRD ON DIALYSIS (STROKE) Current Active Problems Atrial fibrillation (Acute) CVA (cerebral vascular accident) (Acute) ESRD (end stage renal disease) on dialysis (Acute) Hyperkalemia (Acute) Hyperlipidemia associated with type 2 diabetes mellitus (Acute) Hypertensive cardiomyopathy (Acute) Systolic dysfunction without heart failure (Acute) Hospital Course: Initial Hospital Course: Briefly, this 81 year old male with significant past medical history of ESRD on HD (M,W,F), 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 As per son, patient was last dialyzed yesterday without sequelae. Son reported patient was in his usual state of health at 8pm last night. When patient awoke at around 12am son noted the patient was nonverbal with left-sided weakness. Pt baseline is alert, oriented, and active at baseline. EKG shows newly diagnosed afib, not candidate for thrombolysis as patient was outside therapeutic window. Imaging: - Head CT 08/31/2016 - No evidence of acute ICH, edema or midline shift. - Head CT 09/01/2016 - interval large acute right middle cerebral artery territorial infarct involving the right basal ganglia with mass effect effacing the cortical suci as well as mild effacement of the right lateral ventricle and very minimal shift towards the left. Note is made of a hyperdense right middle cerebral artery sign suggestive of thrombosis/occlusion. - Head CT 09/02/2016 - In comparison to previous CT study 09/01, there is a small amount of petechial blood in association with a large acute right cerebral infarct involving the distribution of the middle cerebral artery. The degree of petechial blood appears mildly increased. No focal hematoma is noted. Infarct swelling appears unchanged. - Head CT 09/03/2016 - again shows small amount of petecial blood scattered around acute infarct - Head CT 09/06: no change Subsequent Hospital Course/Progress Note/Discharge Summary by a/p: Assessment: 81 year old male with a significant past medical history of ESRD on MWF HD, s/p thrombolysis of venous aneurysm 08/16, DM II, HTN, HLD, admitted with AMS and left sided weakness, found to have new onset A fib. Plan: 1. Large right Acute MCA CVA/ midline shift and petechia hemorrhage conversation - At this time family wishes to proceed with home hospice due to poor prognosis - Will place scopolamine patch - Per [facility] team will administer lorazepam SL, tylenol OH, morphine SL as needed 2. New onset A fib - No AC d/t hemorrhagic cva 3. ESRD on HD - Family wishes to discontinue HD 4. Hyperkalemia - s/p HD 09/06 5. PNA, ?aspiration - Abx stopped - s/p IV Unasyn 6. DM II, uncontrolled - Stop po antidiabetics - Hgb a1c 8.7 7. Nutrition - Remains NPO due to high risk for aspiration - Family declines peg tube Dispo: - Home with hospice [facility] - Family aware and at bedside Condition: Guarded - Instructions Diet, Activity, Other Instructions: Home with Hospice Care Disposition: HOME This patient is new to me today: No Emergency Visit: Yes ED Registration Date: 08/31/16 Care time: The patient presented to the Emergency Department on the above date and was hospitalized for further evaluation of their emergent condition. Critical Care patient: No - Discharge Referral Referred to [facility] Med P.C.: No
[2016-09-08] MEDS ORDERED: SCOPOLAMINE HYDROBROMIDE 1 PATCH PATCH.TD72 TD SCH (11:00)
--- NOTE | 2016-09-08 11:33 | PN ---
Progress Note, Physician Chief Complaint: The patient in eep coma. There is involuntary non-purposeful right upper extremity movements. Family by his bed. There is increased respiratory efforts noted. Being d/c home today. Last HD two days ago. History of Present Illness: 81 y/o male with massive Right sided stroke. Clinical status worsening. Family has withdrawn all active care. - Current Medication List Current Medications: Active Medications Acetaminophen (Tylenol Suppository -) 650 mg DE Q4H PRN PRN Reason: FEVER OR PAIN Last Admin: 09/07/16 15:00 Dose: 650 mg Pantoprazole Sodium (Protonix 40mg Ivpb (Pre-Docked)) 100 mls @ 200 mls/hr IVPB DAILY [place] Last Admin: 09/08/16 09:59 Dose: 200 mls/hr Ampicillin Sodium/Sulbactam (Sodium 3 gm/ Sodium Chloride) 100 mls @ 200 mls/ hr IVPB Q24H [place] Last Admin: 09/07/16 20:36 Dose: 200 mls/hr Insulin Aspart (Novolog Vial Sliding Scale -) 1 vial SQ ACHS [place] PRN Reason: Protocol Last Admin: 09/08/16 11:17 Dose: Not Given Metoprolol Tartrate (Lopressor Injection -) 5 mg IVPB Q4H-IV [place] Last Admin: 09/08/16 09:58 Dose: 5 mg Scopolamine HBr (Transderm-Scop -) 1 patch TD Q72H [place] Last Admin: 09/08/16 11:16 Dose: 1 patch - Objective Vital Signs: Vital Signs Temperature 97.4 F L 09/08/16 05:49 Pulse Rate 121 H 09/08/16 09:58 Respiratory Rate 22 09/08/16 05:49 Blood Pressure 109/74 09/08/16 09:58 O2 Sat by Pulse Oximetry (%) 97 09/07/16 21:00 Constitutional: Yes: Mild Distress HENT: Yes: Drooling Cardiovascular: Yes: Pulse Irregular, S1, S2 Respiratory: Yes: Diminished, Poor Air Entry, Rhonchi Gastrointestinal: Yes: Soft Neurological: Yes: Unresponsive Labs: CBC, BMP 09/06/16 09:40 09/06/16 09:40 INR, PTT INR 1.53 (0.82-1.09) H 09/03/16 10:45 Problem List - Problems (1) Atrial fibrillation Code(s): I48.91 - UNSPECIFIED ATRIAL FIBRILLATION Qualifiers: Atrial fibrillation type: persistent Qualified Code(s): I48.1 - Persistent atrial fibrillation (2) CVA (cerebral vascular accident) Code(s): I63.9 - CEREBRAL INFARCTION, UNSPECIFIED Qualifiers: CVA mechanism: embolism Precerebral and cerebral artery: middle cerebral artery Laterality of affected vessel: right Qualified Code(s ): I63.411 - Cerebral infarction due to embolism of right middle cerebral artery (3) ESRD (end stage renal disease) on dialysis Code(s): N18.6 - END STAGE RENAL DISEASE Z99.2 - DEPENDENCE ON RENAL DIALYSIS (4) Hyperlipidemia associated with type 2 diabetes mellitus Code(s): E11.69 - TYPE 2 DIABETES MELLITUS WITH OTHER SPECIFIED COMPLICATION E78.5 - HYPERLIPIDEMIA, UNSPECIFIED (5) Aneurysm of arteriovenous dialysis fistula Code(s): T82.898A - OTH COMPLICATION OF VASCULAR PROSTH DEV/GRFT, INIT (6) Coma Code(s): R40.20 - UNSPECIFIED COMA Assessment/Plan 81 y/o male with ESRD, admitted with massive ischemic stroke. No signs of improvement since admission. The patient's clinical status is deteriorating, and with no expectation of improvement. Being taken home today on Hospice care. Cortney Link MD
--- NOTE | 2016-09-15 08:02 | PN ---
Progress Note, Physician History of Present Illness: continues to be critical patients not improving family discussion done still thinking on further steps - Objective Vital Signs: Vital Signs Temperature 97.4 F L 09/08/16 05:49 Pulse Rate 121 H 09/08/16 09:58 Respiratory Rate 24 09/08/16 11:00 Blood Pressure 109/74 09/08/16 09:58 O2 Sat by Pulse Oximetry (%) 95 09/08/16 11:00 Constitutional: Yes: Other Neck: Yes: Supple Cardiovascular: Yes: Pulse Irregular, Murmur Respiratory: Yes: Regular, On Nasal O2 Gastrointestinal: Yes: Normal Bowel Sounds, Soft Musculoskeletal: Yes: WNL Extremities: Yes: WNL Neurological: Yes: Other (no change) Labs: CBC, BMP 09/06/16 09:40 09/06/16 09:40 INR, PTT INR 1.53 (0.82-1.09) H 09/03/16 10:45 Assessment/Plan - Problems (1) CVA (cerebral vascular accident) Code(s): I63.9 - CEREBRAL INFARCTION, UNSPECIFIED Qualifiers: CVA mechanism: embolism Precerebral and cerebral artery: middle cerebral artery Laterality of affected vessel: right Qualified Code(s ): I63.411 - Cerebral infarction due to embolism of right middle cerebral artery (2) ESRD (end stage renal disease) on dialysis Code(s): N18.6 - END STAGE RENAL DISEASE Z99.2 - DEPENDENCE ON RENAL DIALYSIS (3) Systolic dysfunction without heart failure Code(s): I51.9 - HEART DISEASE, UNSPECIFIED (4) Hyperlipidemia associated with type 2 diabetes mellitus Code(s): E11.69 - TYPE 2 DIABETES MELLITUS WITH OTHER SPECIFIED COMPLICATION E78.5 - HYPERLIPIDEMIA, UNSPECIFIED (5) Hypertensive cardiomyopathy Code(s): I11.9 - HYPERTENSIVE HEART DISEASE WITHOUT HEART FAILURE I43 - CARDIOMYOPATHY IN DISEASES CLASSIFIED ELSEWHERE Qualifiers: Heart failure presence: without heart failure Qualified Code(s): I11.9 - Hypertensive heart disease without heart failure; I43 - Cardiomyopathy in diseases classified elsewhere 6 aspiration pna plan continue abx tolerated dialysis rest continue resp support nutrition discussed with the family after a long talk family wishes to talk with all family members and then decide further plan
--- NOTE | 2016-09-15 08:04 | PN ---
Progress Note, Physician History of Present Illness: continues to be critical patients not improving no changes family wants to discuss we had discussed yesterday to repeat ct scan of the head family waiting to hear my suggestion - Objective Vital Signs: Vital Signs Temperature 97.4 F L 09/08/16 05:49 Pulse Rate 121 H 09/08/16 09:58 Respiratory Rate 24 09/08/16 11:00 Blood Pressure 109/74 09/08/16 09:58 O2 Sat by Pulse Oximetry (%) 95 09/08/16 11:00 Constitutional: Yes: Other Neck: Yes: Supple Cardiovascular: Yes: Pulse Irregular, Murmur Respiratory: Yes: Regular Gastrointestinal: Yes: Normal Bowel Sounds, Soft Musculoskeletal: Yes: WNL Extremities: Yes: WNL Neurological: Yes: Other (no change obtunded) Labs: CBC, BMP 09/06/16 09:40 09/06/16 09:40 INR, PTT INR 1.53 (0.82-1.09) H 09/03/16 10:45 Assessment/Plan - Problems (1) CVA (cerebral vascular accident) Code(s): I63.9 - CEREBRAL INFARCTION, UNSPECIFIED Qualifiers: CVA mechanism: embolism Precerebral and cerebral artery: middle cerebral artery Laterality of affected vessel: right Qualified Code(s ): I63.411 - Cerebral infarction due to embolism of right middle cerebral artery (2) ESRD (end stage renal disease) on dialysis Code(s): N18.6 - END STAGE RENAL DISEASE Z99.2 - DEPENDENCE ON RENAL DIALYSIS (3) Systolic dysfunction without heart failure Code(s): I51.9 - HEART DISEASE, UNSPECIFIED (4) Hyperlipidemia associated with type 2 diabetes mellitus Code(s): E11.69 - TYPE 2 DIABETES MELLITUS WITH OTHER SPECIFIED COMPLICATION E78.5 - HYPERLIPIDEMIA, UNSPECIFIED (5) Hypertensive cardiomyopathy Code(s): I11.9 - HYPERTENSIVE HEART DISEASE WITHOUT HEART FAILURE I43 - CARDIOMYOPATHY IN DISEASES CLASSIFIED ELSEWHERE Qualifiers: Heart failure presence: without heart failure Qualified Code(s): I11.9 - Hypertensive heart disease without heart failure; I43 - Cardiomyopathy in diseases classified elsewhere 6 aspiration pna plan continue abx family discussion done told the family there was no change in the ct scan after discussing famil is going to with draw care and probably take him home tomorrow they are also going to stop all dialysis and all other modes of treatment
== END 2016-09-08 11:29 | disposition hospice, home (50) | DRG 64 ==
LOC: JER 02:30 → JERBED 03:51 → UNDOADMIN 04:18 → JERBED 04:18 → J4W 13:08
PROVIDERS: ADMIT Internal Medicine; ATTEND Nurse Practitioner Acute Care
PROC: 5A1D60Z (ICD-10-PCS; principal; 2016-09-01)
DX: I63.411 Cerebral infarction due to embolism of right middle cerebral artery (principal); N18.6 End stage renal disease; G93.41 Metabolic encephalopathy; G93.6 Cerebral edema; J69.0 Pneumonitis due to inhalation of food and vomit; G81.94 Hemiplegia, unspecified affecting left nondominant side; I12.0 Hypertensive chronic kidney disease with stage 5 chronic kidney disease or end stage renal disease; I48.1 Persistent atrial fibrillation; R29.721 NIHSS score 21; R47.01 Aphasia; E11.22 Type 2 diabetes mellitus with diabetic chronic kidney disease; Z99.2 Dependence on renal dialysis; E78.5 Hyperlipidemia, unspecified; I11.9 Hypertensive heart disease without heart failure; R29.810 Facial weakness; E87.5 Hyperkalemia; R45.1 Restlessness and agitation; D63.1 Anemia in chronic kidney disease; Z66 Do not resuscitate; E11.65 Type 2 diabetes mellitus with hyperglycemia
CPT/HCPCS: 36415; 70450-TC; 71010-TC; 80048; 80053; 80061; 82272; 82550; 83036; 83721; 83735; 84100; 84443; 84484; 85025; 85027; 85610; 85730; 86704; 86706; 86708; 86803; 86850; 86900; 86901; 87040; 87340; 93005; 93010; 93306-TC; 93880-TC; 97161-GP; 99283-25; J1644